=== PATIENT | male | born 1965 | race Caucasian/White ===

== ENCOUNTER 2017-05-22 14:21 | Emergency (ER) | payer MEDICAID ==
[2017-05-22] MEDS ORDERED: Sodium Chloride 0.9% 1000 ML 1,000 ML IV STA (14:36)
[2017-05-22] MEDS ORDERED: BACIGUENT PACKET ONE (14:40)
--- NOTE | 2017-05-22 14:43 | ERPHSYRPT ---
- History of Present Illness Time Seen by Provider: 05/22/17 14:40 Source: patient, EMS Exam Limitations: other (mentally challenged) Physician History: fdc pt w/ fatigue and right foot wound for many days, no fever, hx mentally challenged, no emesis, ambulates w/ walker, no recent injury Allergies/Adverse Reactions: No Known Drug Allergies Allergy (Unverified 05/22/17 15:12) - Review of Systems Constitutional: No Fever Eyes: No Eye Redness Ears, Nose, & Throat: No Throat Pain Respiratory: No Symptoms Cardiac: No Symptoms Abdominal/Gastrointestinal: No Symptoms Musculoskeletal: No Back Pain, No Neck Pain Skin: Cellulitis Neurological: No Focal Weakness - Nursing Vital Signs Nursing Vital Signs: Initial Vital Signs Temperature 97.5 F 05/22/17 14:27 Pulse Rate 53 L 05/22/17 14:27 Respiratory Rate 16 05/22/17 14:27 Blood Pressure 109/65 05/22/17 14:27 O2 Sat by Pulse Oximetry 97 05/22/17 14:27 Pain Scale Pain Intensity 0 - Physical Exam General Appearance: no apparent distress Eye Exam: eyes nml inspection Ears, Nose, Throat Exam: moist mucous membranes Neck Exam: normal inspection Respiratory Exam: normal breath sounds Cardiovascular Exam: regular rate/rhythm Gastrointestinal/Abdomen Exam: soft, No tenderness Extremity Exam: other (dorsal ulcer 2cm of the right foot w/ edema of the leg, sen and pulses intact, rom limited) Skin Exam: warm - Course Nursing assessment & vital signs reviewed: Yes - Radiology Exams Foot X-ray Interpretation: Interpreted by me, Other (right foot no osteo or fx seen) - Radiology Ultrasound Exam Venous Lower Extremity Ultrasound: discussed w/radiologist, Other (no dvt right lower extremity) Ordered Tests: Active Orders 24 hr Category Date Time Status IV Insertion STAT Care 05/22/17 14:36 Active FOOT (MINIMUM 3 VIEWS) Stat Exams 05/22/17 14:38 Taken VENOUS UNILAT/LIMITED EXTREMIT [US] Stat Exams 05/22/17 16:09 Taken BLOOD CULTURE Stat Lab 05/22/17 15:10 Received CBC W DIFF Stat Lab 05/22/17 14:50 Completed CMP Stat Lab 05/22/17 14:50 Completed Lactic Acid Stat Lab 05/22/17 15:08 Completed Medication Summary Generic Name Dose Route Start Last Admin Trade Name Freq PRN Reason Stop Dose Admin Cefazolin Sodium/Dextrose 1 gm in 50 mls @ 100 mls/hr 05/22/17 18:28 Kefzol 1 Gm/50 Ml Premix IV 05/22/17 18:57 STAT STA Discontinued Medications Generic Name Dose Route Start Last Admin Trade Name Freq PRN Reason Stop Dose Admin Bacitracin Confirm 05/22/17 14:40 Baciguent Packet Administered 05/22/17 14:41 Dose 1 gm .ROUTE .STK-MED ONE Sodium Chloride 1,000 mls @ 999 mls/hr 05/22/17 14:36 05/22/17 15:11 Sodium Chloride 0.9% 1000 Ml IV 05/22/17 15:36 999 mls/hr .Q1H1M STA Administration Sodium Chloride Confirm 05/22/17 15:04 Sodium Chloride 0.9% 1000 Ml Administered 05/22/17 15:05 Dose 1,000 mls @ ud .ROUTE .[facility]MED [facility] Lab/Rad Data: Laboratory Result Diagrams 05/22/17 14:50 05/22/17 14:50 Laboratory Results 05/22/17 05/22/17 05/22/17 Range/Units 15:10 15:08 14:50 WBC (4.0-10.5) K/mm3 RBC (4.1-5.6) M/mm3 Hgb (12.5-18.0) gm/dl Hct (42-50) % MCV (78-100) fl MCH (26-32) pg MCHC (32-36) g/dl RDW (11.5-14.0) % Plt Count (150-450) K/mm3 MPV (6-9.5) fl Gran % (36.0-66.0) % Lymphocytes % (24.0-44.0) % Monocytes % (0.0-12.0) % Eosinophils % (0.00-5.0) % Basophils % (0.0-0.4) % Basophils # (0-0.4) Sodium 145 (136-145) mEq/L Potassium 4.2 (3.5-5.1) mEq/L Chloride 110 H (98-107) mEq/L Carbon Dioxide 31.1 (21-32) mEq/L Anion Gap 8.3 (5-15) MEQ/L BUN 24 H (9-20) mg/dL Creatinine 1.20 (0.55-1.30) mg/dl Estimated GFR > 60 ML/MIN Glucose 90 (70-110) MG/DL Lactic Acid 0.9 (0.4-2.0) Calcium 9.1 (8.5-10.1) mg/dL Total Bilirubin 0.50 (0.2-1.0) mg/dL AST 56 H (15-37) U/L ALT 57 (12-78) U/L Alkaline Phosphatase 78 (46-116) U/L Serum Total Protein 8.9 H (6.4-8.2) gm/dL Albumin 3.2 L (3.4-5.0) g/dL Influenza Type A Ag NEGATIVE (NEGATIVE) Influenza Type B Ag NEGATIVE (NEGATIVE) RSV (PCR) NEGATIVE (Negative) 05/22/17 Range/Units 14:50 WBC 8.2 (4.0-10.5) K/mm3 RBC 4.52 (4.1-5.6) M/mm3 Hgb 14.3 (12.5-18.0) gm/dl Hct 45.2 (42-50) % MCV 100.0 (78-100) fl MCH 31.6 (26-32) pg MCHC 31.6 L (32-36) g/dl RDW 16.5 H (11.5-14.0) % Plt Count 266 (150-450) K/mm3 MPV 11.7 H (6-9.5) fl Gran % 37.5 (36.0-66.0) % Lymphocytes % 41.7 (24.0-44.0) % Monocytes % 13.7 H (0.0-12.0) % Eosinophils % 6.7 H (0.00-5.0) % Basophils % 0.4 (0.0-0.4) % Basophils # 0.03 (0-0.4) Sodium (136-145) mEq/L Potassium (3.5-5.1) mEq/L Chloride (98-107) mEq/L Carbon Dioxide (21-32) mEq/L Anion Gap (5-15) MEQ/L BUN (9-20) mg/dL Creatinine (0.55-1.30) mg/dl Estimated GFR ML/MIN Glucose (70-110) MG/DL Lactic Acid (0.4-2.0) Calcium (8.5-10.1) mg/dL Total Bilirubin (0.2-1.0) mg/dL AST (15-37) U/L ALT (12-78) U/L Alkaline Phosphatase (46-116) U/L Serum Total Protein (6.4-8.2) gm/dL Albumin (3.4-5.0) g/dL Influenza Type A Ag (NEGATIVE) Influenza Type B Ag (NEGATIVE) RSV (PCR) (Negative) - Progress Progress: unchanged Discussed with : Other Will see patient in: office Counseled pt/family regarding: lab results, diagnosis, need for follow-up, rad results - Departure Time of Disposition: 18:31 Departure Disposition: Home Clinical Impression: Cellulitis Qualifiers: Site of cellulitis: extremity Site of cellulitis of extremity: lower extremity Laterality: right Qualified Code(s): L03.115 - Cellulitis of right lower limb Condition: Stable Critical Care Time: No Referrals: HENRRY LOUIE [Primary Care Provider] - Additional Instructions: see your doctor, return if worse, keflex, continue present medical regimen
[2017-05-22] MEDS ORDERED: Sodium Chloride 0.9% 1000 ML 1,000 ML ONE (15:04)
[2017-05-22 15:24] LABS: BASOPHIL % 0.4 % (0.0-0.4); Basophil (Absolute #) 0.03 (0-0.4); Eosinophil % 6.7 % (0.00-5.0); Eosinophil (Absolute #) 0.55 (0-0.5); Granulocyte Absolute (ANC) 3.08 (1.4-6.9); Granulocytes % 37.5 % (36.0-66.0); Hematocrit 45.2 % (42-50); Hemoglobin 14.3 gm/dl (12.5-18.0); Lymphocyte (Absolute #) 3.42 (1.0-4.6); Lymphocytes % 41.7 % (24.0-44.0); Mean Corpuscular Hemoglobin 31.6 pg (26-32); Mean Corpuscular Hgb Concent. 31.6 g/dl (32-36); Mean Platelet Volume 11.7 fl (6-9.5); Monocyte (Absolute #) 1.12 (0.0-1.3); Monocytes % 13.7 % (0.0-12.0); Platelet Count 266 K/mm3 (150-450); Red Blood Count 4.52 M/mm3 (4.1-5.6); Red Cell Distribution Width 16.5 % (11.5-14.0); White Blood Count 8.2 K/mm3 (4.0-10.5)
[2017-05-22 15:37] LABS: ALBUMIN 3.2 g/dL (3.4-5.0); ALKALINE PHOSPHATASE 78 U/L (46-116); ANION GAP 8.3 MEQ/L (5-15); BLOOD UREA NITROGEN 24 mg/dL (9-20); CHLORIDE 110 mEq/L (98-107); Calcium 9.1 mg/dL (8.5-10.1); Carbon Dioxide 31.1 mEq/L (21-32); EST GLOMERULAR FILTRATION RATE > 60 ML/MIN; Glucose 90 MG/DL (70-110); Potassium 4.2 mEq/L (3.5-5.1); SGOT/AST 56 U/L (15-37); SGPT/ALT 57 U/L (12-78); SODIUM 145 mEq/L (136-145); Total Protein 8.9 gm/dL (6.4-8.2)
[2017-05-22 16:19] LABS: INFLUENZA A NEGATIVE (NEGATIVE); INFLUENZA B NEGATIVE (NEGATIVE); RESPIRATORY SYNCTIAL VIRUS NEGATIVE (Negative)
[2017-05-22] MEDS ORDERED: KEFZOL 1 GM/50 ML PREMIX** 1 GM/50 ML IVPB IV STA (18:28)
[2017-05-22] MEDS ORDERED: KEFZOL 1 GM/50 ML PREMIX** 1 GM/50 ML IVPB IV ONE (18:32)
[2017-05-22 19:18] VITALS: BP 115/67; PULSE 58; O2SAT 97
--- NOTE | 2017-05-22 21:10 | XRAY ---
Indication: Osteomyelitis. Erythema. No known injury. 2-dimensional sonogram and color Doppler imaging of the major venous vessels of the right leg was performed. Comparison: None No thrombus seen in the examined deep venous vessels of the right leg including greater saphenous vein. Veins demonstrate normal compressibility. Venous waveforms are normal with and without augmentation. Incidental prominent lymph nodes in the groin region, largest 2.7 x 5.0 cm. Impression: Right leg negative for DVT. Right inguinal enlarged lymph nodes. Comment: Preliminary report was given.
--- NOTE | 2017-05-22 21:10 | XRAY ---
Indication: Osteomyelitis. Erythema. No known injury. 3 views of the right foot demonstrates mild diffuse soft tissue swelling, osteopenia, and small heel spurs. No other bony, articular, or soft tissue abnormalities. MRI may yield further information if there remains further clinical concern for osteomyelitis.
[2017-05-23] MEDS ORDERED: BACIGUENT PACKET TP ONE (07:35)
== END 2017-05-22 19:34 | disposition home or self-care (01) ==
LOC: ED 14:21
DX: L03.115 Cellulitis of right lower limb (principal)
CPT/HCPCS: 36000; 36415; 73630; 80053; 83605; 85025; 87040; 87631; 93971; 96360; 96365; 99284; J0690; A9270-GY

== ENCOUNTER 2017-10-14 18:40 | Emergency (ER) | payer MEDICAID ==
[2017-10-14] MEDS ORDERED: Sodium Chloride 0.9% 1000 ML 1,000 ML IV SCH (19:15)
--- NOTE | 2017-10-14 19:18 | ERPHSYRPT ---
- History of Present Illness Time Seen by Provider: 10/14/17 19:06 Source: patient, other (care worker) Exam Limitations: other (patient with history of TBI) Patient Subjective Stated Complaint: caregiver states patient has been unsteady today and had periods of disorientation. had also c/o dizziness earlier today. Triage Nursing Assessment: to room per ems cot. skin w/d, color normal, resp easy. patient has no c/o at this time. eubanks without difficulty. resides at a senior living after having a TBI. Physician History: 52-year-old white male with history of traumatic brain injury, high blood pressure, movement disorder, cellulitis, edema Brought by caregiver with complaints that patient seems to be unsteady today seems to be disoriented times not using his walker as well as usual. No focal deficits. Patient's caregiver state patient gets this sometimes with urinary tract infections. Past medical history includes traumatic brain injury, lower extremity cellulitis which is chronic and under care, dementia, high blood pressure, mood disorder, cellulitis, edema, GERD, hypothyroidism Timing/Duration: today Severity: moderate Associated Symptoms: other (seems to be shaky today), No nausea, No vomiting, No abdominal pain, No shortness of breath, No heartburn, No diaphoresis, No cough, No chest pain, No fever, No headaches, No loss of appetite, No malaise, No rash, No syncope, No seizure, No weakness Allergies/Adverse Reactions: No Known Drug Allergies Allergy (Verified 10/14/17 19:08) Hx Tetanus, Diphtheria Vaccination/Date Given: No Hx Influenza Vaccination/Date Given: Yes Hx Pneumococcal Vaccination/Date Given: No - Review of Systems Constitutional: Weakness, No Fever, No Chills Eyes: No Symptoms Ears, Nose, & Throat: No Symptoms Respiratory: No Cough, No Dyspnea Cardiac: No Chest Pain, No Edema, No Syncope Abdominal/Gastrointestinal: No Abdominal Pain, No Nausea, No Vomiting, No Diarrhea Genitourinary Symptoms: No Dysuria Musculoskeletal: No Back Pain, No Neck Pain Skin: No Rash Neurological: Other ( appears to be unsteady as compared to usual seems to be shaky) Psychological: No Symptoms Endocrine: No Symptoms All Other Systems: Reviewed and Negative - Past Medical History Pertinent Past Medical History: Yes Cardiac History: Hypertension Endocrine Medical History: Hypothyroidism GI Medical History: GERD Psycho-Social History: Depression, Other Other Medical History: TBI from [facility] - Past Surgical History Past Surgical History: Yes (unknown/no history on transfer) Other Surgical History: caregiver states she doesn't know what surgeries he's had. - Social History Smoking Status: Never smoker Exposure to second hand smoke: No Drug Use: none Patient Lives Alone: No - Nursing Vital Signs Nursing Vital Signs: Initial Vital Signs Temperature 97.8 F 10/14/17 18:48 Pulse Rate 62 10/14/17 18:48 Respiratory Rate 18 10/14/17 18:48 Blood Pressure 105/55 10/14/17 18:48 O2 Sat by Pulse Oximetry 99 10/14/17 18:48 Pain Scale Pain Intensity 0 - Physical Exam General Appearance: no apparent distress, other (well-developed white male alert answers questions well) Eye Exam: PERRL/EOMI, eyes nml inspection Ears, Nose, Throat Exam: normal ENT inspection, TMs normal, pharynx normal, moist mucous membranes Neck Exam: normal inspection, non-tender, supple, full range of motion Respiratory Exam: normal breath sounds, lungs clear, No respiratory distress Cardiovascular Exam: regular rate/rhythm, normal heart sounds, normal peripheral pulses Gastrointestinal/Abdomen Exam: soft, normal bowel sounds, No tenderness, No distention, No mass, No guarding, No rebound Back Exam: normal inspection, normal range of motion, No CVA tenderness, No vertebral tenderness Extremity Exam: other (bilateral lower extremitiy edema dressing is placed lower extremities) Neurologic Exam: alert, criminalist II-XII nml as tested, No oriented x 3 (oriented to person and place) Skin Exam: other (chronic erythema lower extremities area is not hot) SpO2 Interpretation: normal (99%) SpO2: 99 Oxygen Delivery: Room Air - Course Nursing assessment & vital signs reviewed: Yes EKG Interpreted by Me: RATE (53 bpm), Sinus Efren, NORMAL AXIS, Other (EKG: Sinus bradycardia, 53 beats per minute, normal axis, no acute ST or T wave changes) - CT Exams Head CT Interpretation: Discussed w/radiologist (head CT: No comparisons. No acute intracranial findings. Prominent lateral and third ventricles. Rule out noncommunicating hydrocephalus.) Ordered Tests: Active Orders 24 hr Category Date Time Status EKG-ER Only STAT Care 10/14/17 19:09 Active IV Insertion STAT Care 10/14/17 19:09 Active CHEST 1 VIEW (PORTABLE) Stat Exams 10/14/17 19:10 Taken HEAD WITHOUT CONTRAST [CT] Stat Exams 10/14/17 20:10 Taken AMYLASE Stat Lab 10/14/17 19:27 Completed CBC W DIFF Stat Lab 10/14/17 19:27 Completed CMP Stat Lab 10/14/17 19:27 Completed LIPASE Stat Lab 10/14/17 19:27 Completed UA W/RFX UR CULTURE Stat Lab 10/14/17 19:10 Uncollected Medication Summary Generic Name Dose Route Start Last Admin Trade Name Freq PRN Reason Stop Dose Admin Sodium Chloride 1,000 mls @ 100 mls/hr 10/14/17 19:15 10/14/17 19:28 Sodium Chloride 0.9% 1000 Ml IV 11/13/17 19:14 100 mls/hr .Q10H RIMMA Administration Lab/Rad Data: Laboratory Result Diagrams 10/14/17 19:27 10/14/17 19:27 Laboratory Results 10/14/17 10/14/17 Range/Units 19:27 19:27 WBC 8.8 (4.0-10.5) K/mm3 RBC 4.42 (4.1-5.6) M/mm3 Hgb 14.7 (12.5-18.0) gm/dl Hct 43.7 (42-50) % MCV 98.9 (78-100) fl MCH 33.3 H (26-32) pg MCHC 33.6 (32-36) g/dl RDW 15.5 H (11.5-14.0) % Plt Count 253 (150-450) K/mm3 MPV 12.7 H (6-9.5) fl Gran % 46.3 (36.0-66.0) % Eos # (Auto) 0.48 (0-0.5) Absolute Lymphs (auto) 2.85 (1.0-4.6) Absolute Monos (auto) 1.36 H (0.0-1.3) Lymphocytes % 32.4 (24.0-44.0) % Monocytes % 15.5 H (0.0-12.0) % Eosinophils % 5.5 H (0.00-5.0) % Basophils % 0.3 (0.0-0.4) % Absolute Granulocytes 4.07 (1.4-6.9) Basophils # 0.03 (0-0.4) Sodium 145 (137-145) mmol/L Potassium 4.8 (3.5-5.1) mmol/L Chloride 107 (98-107) mmol/L Carbon Dioxide 29 (22-30) mmol/L Anion Gap 13.9 (5-15) MEQ/L BUN 21 H (9-20) mg/dL Creatinine 0.90 (0.66-1.25) mg/dL Estimated GFR > 60.0 ML/MIN Glucose 87 (74-106) mg/dL Calcium 9.4 (8.4-10.2) mg/dL Total Bilirubin 0.80 (0.2-1.3) mg/dL AST 52 (17-59) U/L ALT 44 (0-50) U/L Alkaline Phosphatase 70 (38-126) U/L Serum Total Protein 8.5 H (6.3-8.2) g/dL Albumin 4.0 (3.5-5.0) g/dL Amylase 88 (30-110) U/L Lipase 189 (23-300) U/L - Progress Progress: improved Progress Note: 10/14/17 20:11 52-year-old white male with history of traumatic brain injury dementia, high blood pressure patient apparently noted earlier today to have trouble walking couldn't remember what a pepsi was, No real focal deficits are noted, patient with chronic traumatic brain injury. Patient currently is alert oriented person and place. I've discussed the patient with the staff member who states she knows him quite well. She feels that at this point in time he is acting his normal self however earlier she said he was having a hard time with his balance. Will go ahead and obtain CT head patient does have a dressed wound on his lower extremities which are being treated by wound care center no signs of erythema. Labs are pending. Patient does not appear to be in acute distress at this time has range of motion to all extremities cranial nerves II through XII are intact patient is laughing and joking 10/14/17 22:33 Patient's CBC and chemistry essentially normal. Nurse attempted catheterization patient would not let him do this and would not provide a urine. Patient's head CT was read as no comparison. No acute intracranial findings, prominent lateral and third ventricle. Rule out noncommunicating hydrocephalus. I contacted Dr. Burnette who is listed on the computer as the patient's physician to discuss the patient however he stated he was not the patient's physician. Patient's records are checked from [facility] care they list Dr. Mcginnis as the patient' s physician I discussed the case with who is on-call for Dr. Mcginnis and discussed the patient's findings and CT results. It is felt that the patient at this time is in no acute distress This felt that CT head findings are most likely chronic. Will attempt to have the patient obtain a urine at rest care. Will have patient's caregiver contact Dr. Mcginnis's office in the morning to arrange follow-up appointment. - Departure Time of Disposition: 22:36 Departure Disposition: Home Clinical Impression: Gait disturbance, transient mental status change, Abnormal head CT, History of traumatic brain injury Condition: Fair Critical Care Time: No Referrals: HENRRY LOUIE [NON-STAFF PHY W/O PRIVILEGES] - Additional Instructions: return home. Continue current medications and treatment. Follow-up with Dr. Mcginnis (call in the morning to arrange followup) Return for acute distress or for severe symptoms.
[2017-10-14] MEDS ORDERED: Sodium Chloride 0.9% 1000 ML 1,000 ML ONE (19:26)
[2017-10-14 19:42] LABS: BASOPHIL % 0.3 % (0.0-0.4); Basophil (Absolute #) 0.03 (0-0.4); Eosinophil % 5.5 % (0.00-5.0); Eosinophil (Absolute #) 0.48 (0-0.5); Granulocyte Absolute (ANC) 4.07 (1.4-6.9); Granulocytes % 46.3 % (36.0-66.0); Hematocrit 43.7 % (42-50); Hemoglobin 14.7 gm/dl (12.5-18.0); Lymphocyte (Absolute #) 2.85 (1.0-4.6); Lymphocytes % 32.4 % (24.0-44.0); Mean Cell Volume 98.9 fl (78-100); Mean Corpuscular Hemoglobin 33.3 pg (26-32); Mean Corpuscular Hgb Concent. 33.6 g/dl (32-36); Mean Platelet Volume 12.7 fl (6-9.5); Monocyte (Absolute #) 1.36 (0.0-1.3); Monocytes % 15.5 % (0.0-12.0); Platelet Count 253 K/mm3 (150-450); Red Blood Count 4.42 M/mm3 (4.1-5.6); Red Cell Distribution Width 15.5 % (11.5-14.0); White Blood Count 8.8 K/mm3 (4.0-10.5)
[2017-10-14 21:17] LABS: ALKALINE PHOSPHATASE 70 U/L (38-126); AMYLASE 88 U/L (30-110); ANION GAP 13.9 MEQ/L (5-15); BLOOD UREA NITROGEN 21 mg/dL (9-20); CHLORIDE 107 mmol/L (98-107); Calcium 9.4 mg/dL (8.4-10.2); Carbon Dioxide 29 mmol/L (22-30); Glucose 87 mg/dL (74-106); LIPASE 189 U/L (23-300); Potassium 4.8 mmol/L (3.5-5.1); SGOT/AST 52 U/L (17-59); SGPT/ALT 44 U/L (0-50); SODIUM 145 mmol/L (137-145); Total Protein 8.5 g/dL (6.3-8.2)
[2017-10-14 23:06] VITALS: BP 112/78; PULSE 58; O2SAT 97
--- NOTE | 2017-10-15 08:39 | XRAY ---
Indication: Altered mental status. Multiple contiguous axial images obtained through the head without contrast. Comparison: None Age-appropriate global atrophy and mild periventricular degenerative micro-ischemia bilaterally. Both lateral and third ventricles are prominent with the fourth ventricle more normal in size concerning for noncommunicating hydrocephalus. No acute intracranial hemorrhage, abnormal extra-axial fluid collection, or mass effect. Bony calvarium intact. Visualized paranasal sinuses and mastoid air cells are clear. Impression: 1. Prominent lateral and third ventricles. Rule out noncommunicating hydrocephalus. Comparison studies would be of benefit if performed elsewhere. 2. Atrophy and degenerative micro-ischemia within normal limits. CT DI 70.00
--- NOTE | 2017-10-15 08:41 | XRAY ---
Indication: Weakness. Comparison: None Portable chest demonstrates left hemidiaphragm elevation with adjacent infiltrate/atelectasis. A few scattered tiny calcified granulomas. Remaining heart and right lung unremarkable. Bony thorax demonstrates mild degenerative changes and old left rib fractures fixated with wires. Impression: Left hemidiaphragm elevation with adjacent infiltrate/atelectasis. Correlate clinically.
== END 2017-10-14 23:05 | disposition home or self-care (01) ==
LOC: ED 18:40
DX: R26.9 Unspecified abnormalities of gait and mobility (principal); R41.82 Altered mental status, unspecified; R93.0 Abnormal findings on diagnostic imaging of skull and head, not elsewhere classified; Z87.820 Personal history of traumatic brain injury
CPT/HCPCS: 36000; 36415; 70450; 71045; 80053; 82150; 83690; 85025; 93005; 96360; 96361; 99284

== ENCOUNTER 2017-11-11 08:14 | Emergency (ER) | payer MEDICAID ==
[2017-11-11 08:35] VITALS: BP 100/56; PULSE 65; O2SAT 97
--- NOTE | 2017-11-11 08:54 | ERPHSYRPT ---
- History of Present Illness Time Seen by Provider: 11/11/17 08:49 Source: patient, other (staff care worker) Exam Limitations: no limitations Patient Subjective Stated Complaint: pt here for bleeding to left foot after coming out of shower today, pt is from [facility] and staff is unsure what happened to foot, Triage Nursing Assessment: pt alert , resp easy , skin w/d/p,pt has scabbed over area to outer aspect of left foot on top of small vein Physician History: patient with a scab on left lower extremity. Apparently patient picked on scab and it began to bleed. note taker states there was increased amount of bleeding that was not able to stop. Patient is a resident of a local prison. By the time patient arrived to ED bleeding was controlled Occurred: just prior to arrival Quality: intermittent Severity of Pain-Max: none Severity of Pain-Current: none Lower Extremities Pain: ankle: left Modifying Factors: Improves With: immobilization (improves), movement (worsens) Associated Symptoms: none Allergies/Adverse Reactions: No Known Drug Allergies Allergy (Verified 10/14/17 19:08) Hx Tetanus, Diphtheria Vaccination/Date Given: No Hx Influenza Vaccination/Date Given: (unsure) Hx Pneumococcal Vaccination/Date Given: (unsure) - Review of Systems Constitutional: No Fever, No Chills Eyes: No Symptoms Ears, Nose, & Throat: No Symptoms Respiratory: No Symptoms, No Cough, No Dyspnea Cardiac: No Symptoms, No Chest Pain, No Edema, No Syncope Abdominal/Gastrointestinal: No Symptoms, No Abdominal Pain, No Nausea, No Vomiting, No Diarrhea Genitourinary Symptoms: No Symptoms, No Dysuria Musculoskeletal: No Symptoms, No Back Pain, No Neck Pain Skin: Other (bleeding from varicose vein), No Rash Neurological: No Symptoms, No Dizziness, No Focal Weakness, No Sensory Changes Psychological: No Symptoms Endocrine: No Symptoms Hematologic/Lymphatic: No Symptoms Immunological/Allergic: No Symptoms All Other Systems: Reviewed and Negative - Past Medical History Pertinent Past Medical History: Yes Cardiac History: Hypertension Endocrine Medical History: Hypothyroidism GI Medical History: GERD Psycho-Social History: Depression, Other Other Medical History: [facility] from [facility] - Past Surgical History Past Surgical History: Yes (unknown/no history on transfer) Other Surgical History: caregiver states she doesn't know what surgeries he's had. - Social History Smoking Status: Never smoker Exposure to second hand smoke: No Drug Use: none Patient Lives Alone: No - Nursing Vital Signs Nursing Vital Signs: Initial Vital Signs Temperature 97.9 F 11/11/17 08:27 Pulse Rate 65 11/11/17 08:27 Respiratory Rate 16 11/11/17 08:27 Blood Pressure 100/56 11/11/17 08:27 O2 Sat by Pulse Oximetry 97 11/11/17 08:27 Pain Scale Pain Intensity 0 - Physical Exam General Appearance: alert Eyes, Ears, Nose, Throat Exam: moist mucous membranes Neck Exam: normal inspection, non-tender, supple Cardiovascular/Respiratory Exam: chest non-tender, normal breath sounds, regular rate/rhythm, no respiratory distress Gastrointestinal/Abdominal Exam: non-tender, guarding Back Exam: normal inspection, No vertebral tenderness Legs Exam: bilateral leg: non-tender, normal range of motion, no evidence of injury Ankle Exam: bilateral ankle: non-tender, normal range of motion, no evidence of injury DTR - Lower Extremities Exam: ankle (R): 2+, ankle (L): 2+ Neuro/Tendon Exam: normal sensation, normal motor functions Mental Status Exam: alert, oriented x 3, cooperative Skin Exam: normal color, warm, dry, other (there is a small scab on left lower leg above ankle. No bleeding is noted at this time) SpO2: 97 Oxygen Delivery: Room Air - Course Nursing assessment & vital signs reviewed: Yes - Progress Progress: improved Progress Note: 11/11/17 08:55 we will put Surgicel on wound, along with compression dressing. Counseled pt/family regarding: diagnosis - Departure Time of Disposition: 08:57 Departure Disposition: Home Clinical Impression: Bleeding from wound Condition: Stable Critical Care Time: No Referrals: JANICE FLORES [Primary Care Provider] - Instructions: Wound Care (DC) Additional Instructions: keep leg elevated in decrease weight bearing for next 1-2 days. Put pressure dressing on wound to stop bleeding. Return for worse bleeding, redness, swelling or any problems
== END 2017-11-11 09:21 | disposition home or self-care (01) ==
LOC: ED 08:14
DX: S91.302A Unspecified open wound, left foot, initial encounter (principal)
CPT/HCPCS: 99283

== ENCOUNTER 2018-01-06 17:08 | Emergency (ER) | payer MEDICAID ==
--- NOTE | 2018-01-06 17:16 | ERPHSYRPT ---
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 no vomiting and no aspiration. pt has no complaints. by law, pts living in a fpc setting with this issue need to be evaluated. caregiver has not seen any issues since it occurred ie. no cough no shortness and no cp. Timing/Duration: today, hour(s) (2 to 3 hours ago) Cough Quality/Degree: no cough Possible Cause: no prior episodes Modifying Factors: Improves With: nothing Associated Symptoms: denies symptoms International travel in last 2 weeks: Yes Allergies/Adverse Reactions: No Known Drug Allergies Allergy (Verified 10/14/17 19:08) Home Medications: Fluoxetine HCl 10 mg [Prozac 10 mg] 10 mg PO DAILY 01/06/18 [History] Levothyroxine Sodium 100 mg PO DAILY 01/06/18 [History] Topiramate 50 mg PO DAILY 01/06/18 [History] Hx Tetanus, Diphtheria Vaccination/Date Given: No Hx Influenza Vaccination/Date Given: (unsure) Hx Pneumococcal Vaccination/Date Given: (unsure) - Review of Systems Constitutional: No Symptoms Eyes: No Symptoms Ears, Nose, & Throat: No Symptoms Respiratory: No Symptoms Cardiac: No Symptoms Abdominal/Gastrointestinal: No Symptoms Genitourinary Symptoms: No Symptoms Musculoskeletal: No Symptoms Skin: No Symptoms Neurological: No Symptoms Psychological: No Symptoms Endocrine: No Symptoms Hematologic/Lymphatic: No Symptoms Immunological/Allergic: No Symptoms All Other Systems: Reviewed and Negative - Past Medical History Pertinent Past Medical History: Yes Cardiac History: Hypertension Endocrine Medical History: Hypothyroidism GI Medical History: GERD Psycho-Social History: Depression, Other Other Medical History: TBI from [facility] - Past Surgical History Past Surgical History: Yes (unknown/no history on transfer) Other Surgical History: caregiver states she doesn't know what surgeries he's had. - Social History Smoking Status: Never smoker Exposure to second hand smoke: No Drug Use: none Patient Lives Alone: No - Nursing Vital Signs Nursing Vital Signs: Initial Vital Signs Temperature 97.9 F 01/06/18 17:15 Pulse Rate 72 01/06/18 17:15 Respiratory Rate 18 01/06/18 17:15 Blood Pressure 117/64 01/06/18 17:15 O2 Sat by Pulse Oximetry 95 01/06/18 17:15 Pain Scale Pain Intensity 0 - Physical Exam General Appearance: no apparent distress, alert Eye Exam: PERRL/EOMI, eyes nml inspection Ears, Nose, Throat Exam: normal ENT inspection Neck Exam: normal inspection, non-tender, supple, full range of motion Respiratory Exam: normal breath sounds, lungs clear, airway intact, No chest tenderness, No respiratory distress, No diminished breath sounds, No accessory muscle use, No rhonchi, No wheezing, No stridor Cardiovascular Exam: regular rate/rhythm, normal heart sounds, normal peripheral pulses Gastrointestinal/Abdomen Exam: soft, normal bowel sounds, No tenderness, No distention, No mass, No guarding, No rebound Rectal Exam: deferred Back Exam: normal inspection, normal range of motion, No CVA tenderness, No vertebral tenderness Extremity Exam: normal inspection, normal range of motion, pelvis stable Neurologic Exam: alert, oriented x 3, cooperative, chair caner II-XII nml as tested, normal mood/affect Skin Exam: normal color, warm, dry Lymphatic Exam: No adenopathy SpO2 Interpretation: normal Oxygen Delivery: Room Air - Course Nursing assessment & vital signs reviewed: Yes - Progress Progress: unchanged Air Movement: good Blood Culture(s) Obtained: No Antibiotics given: No Counseled pt/family regarding: diagnosis - Departure Time of Disposition: 17:51 Departure Disposition: Home Clinical Impression: Encounter for medical screening examination Condition: Good Critical Care Time: No Referrals: JANICE FLORES [Primary Care Provider] -
[2018-01-06 17:57] VITALS: BP 114/60; PULSE 70; O2SAT 95
== END 2018-01-06 18:01 | disposition home or self-care (01) ==
LOC: ED 17:08
DX: Z04.8 Encounter for examination and observation for other specified reasons (principal); Z87.820 Personal history of traumatic brain injury
CPT/HCPCS: 99283

== ENCOUNTER 2018-01-20 17:06 | Emergency (ER) | payer MEDICAID ==
[2018-01-20] MEDS ORDERED: Lactated Ringers 1,000 ML IV ONE ×2 (17:13→17:41)
--- NOTE | 2018-01-20 17:18 | ERPHSYRPT ---
- History of Present Illness Time Seen by Provider: 01/20/18 17:11 Source: patient, family, snf records, old records Exam Limitations: clinical condition (s/p old TBInjury) Physician History: family caregiver historian; came home and went to sleep- difficulty waking up ; low heart rate; large clear liquid diarrheal stool this afternoon; no pain; no travel- no fever; no exposures; no past hx of similar episodes Timing/Duration: today, hour(s) (2 ago), resolved prior to arrival, sudden Severity: severe Associated Symptoms: loss of appetite (recent), other (diarrhea x 1 clear watery ) Allergies/Adverse Reactions: No Known Drug Allergies Allergy (Verified 01/20/18 17:51) Home Medications: Fluoxetine HCl 10 mg [Prozac 10 mg] 10 mg PO DAILY 01/06/18 [History] Docusate Sodium 100 mg [Colace 100 MG] 100 mg PO BID 01/20/18 [History] Famotidine 20 mg [Pepcid 20 MG] 20 mg PO BID 01/20/18 [History] Hx Tetanus, Diphtheria Vaccination/Date Given: No Hx Influenza Vaccination/Date Given: (unsure) Hx Pneumococcal Vaccination/Date Given: (unsure) - Review of Systems Constitutional: Malaise Eyes: No Symptoms Ears, Nose, & Throat: No Symptoms Respiratory: No Cough, No Dyspnea, No Wheezing Cardiac: No Chest Pain, No Edema, No Palpitations, No Syncope Abdominal/Gastrointestinal: Diarrhea, No Abdominal Pain, No Nausea, No Vomiting , No Melena Genitourinary Symptoms: No Symptoms Musculoskeletal: No Symptoms Skin: No Symptoms Neurological: Other (sp old traumatic brain injury- no change) Psychological: No Symptoms Endocrine: No Symptoms Hematologic/Lymphatic: No Symptoms Immunological/Allergic: No Symptoms - Past Medical History Pertinent Past Medical History: Yes Cardiac History: Hypertension Endocrine Medical History: Hypothyroidism GI Medical History: GERD Psycho-Social History: Depression, Other Other Medical History: TBI from [facility] - Past Surgical History Past Surgical History: Yes (unknown/no history on transfer) Other Surgical History: caregiver states she doesn't know what surgeries he's had. - Social History Smoking Status: Never smoker How long have you smoked: years Exposure to second hand smoke: No Alcohol Use: None Drug Use: none Patient Lives Alone: No Significant Family History: no pertinent family hx - Female History Hx Now: No - Nursing Vital Signs Nursing Vital Signs: Initial Vital Signs Blood Pressure 107/63 01/20/18 17:09 Pain Scale Pain Intensity 0 - Physical Exam General Appearance: no apparent distress, alert, thin Eye Exam: PERRL/EOMI, eyes nml inspection Ears, Nose, Throat Exam: normal ENT inspection, TMs normal, pharynx normal, moist mucous membranes Neck Exam: normal inspection, non-tender, supple, full range of motion, No meningismus, No JVD Respiratory Exam: normal breath sounds, lungs clear, airway intact, No chest tenderness, No respiratory distress Cardiovascular Exam: regular rate/rhythm, normal heart sounds, normal peripheral pulses, bradycardia (58), capillary refill 2-3 sec, No murmur Gastrointestinal/Abdomen Exam: soft, normal bowel sounds, No tenderness, No guarding, No pulsatile mass, No rebound, No organomegaly Rectal Exam: normal exam, normal rectal tone, other (clear watery stool), No hemorrhoids, No black stool, No blood Back Exam: normal inspection, normal range of motion, No CVA tenderness, No vertebral tenderness, No rash Extremity Exam: normal inspection, normal range of motion, pedal edema (chronic) , No kelton's sign Neurologic Exam: alert, cooperative, smoke tester II-XII nml as tested, normal mood/ affect Skin Exam: normal color, warm, dry, other (venous stasis cahnges and discoloration bialteral lower legs), No rash, No petechiae, No jaundice SpO2 Interpretation: normal SpO2: 98 Oxygen Delivery: Room Air - Course Nursing assessment & vital signs reviewed: Yes EKG Interpreted by Me: RATE (52), Sinus Efren (52), NORMAL AXIS, NORMAL INTERVALS, NORMAL QRS, NORMAL ST-T, Other (no change from old ekg done 10-14-17 sinus bradycardia at 53) Rhythm Strip: Rate (52), Sinus Bradycardia Ordered Tests: Active Orders 24 hr Category Date Time Status Accucheck STAT Care 01/20/18 17:12 Active IV Insertion STAT Care 01/20/18 17:11 Active Orthostatic Vital Signs STAT Care 01/20/18 17:12 Active Re-Check Vital Signs STAT Care 01/20/18 17:11 Active CBC W DIFF Stat Lab 01/20/18 16:50 Completed CMP Stat Lab 01/20/18 16:50 Completed Lactic Acid Stat Lab 01/20/18 17:25 Completed Occult Blood,Stool Other Stat Lab 01/20/18 17:30 Completed Medication Summary Discontinued Medications Generic Name Dose Route Start Last Admin Trade Name Ellis PRN Reason Stop Dose Admin Lactated Ringer's 1,000 mls @ 999 mls/hr 01/20/18 17:13 01/20/18 17:41 Lactated Ringers IV 01/20/18 18:13 999 mls/hr .Q1H1M ONE Administration Lactated Ringer's Confirm 01/20/18 17:41 Lactated Ringers Administered 01/20/18 17:42 Dose 1,000 mls @ ud IV .STK-MED ONE Lab/Rad Data: Laboratory Result Diagrams 01/20/18 16:50 01/20/18 16:50 Laboratory Results 01/20/18 01/20/18 01/20/18 Range/Units 17:30 17:25 16:50 WBC (4.0-10.5) K/mm3 RBC (4.1-5.6) M/mm3 Hgb (12.5-18.0) gm/dl Hct (42-50) % MCV (78-100) fl MCH (26-32) pg MCHC (32-36) g/dl RDW (11.5-14.0) % Plt Count (150-450) K/mm3 MPV (6-9.5) fl Gran % (36.0-66.0) % Eos # (Auto) (0-0.5) Absolute Lymphs (auto) (1.0-4.6) Absolute Monos (auto) (0.0-1.3) Lymphocytes % (24.0-44.0) % Monocytes % (0.0-12.0) % Eosinophils % (0.00-5.0) % Basophils % (0.0-0.4) % Absolute Granulocytes (1.4-6.9) Basophils # (0-0.4) Sodium 147 H (137-145) mmol/L Potassium 4.0 (3.5-5.1) mmol/L Chloride 108 H (98-107) mmol/L Carbon Dioxide 28 (22-30) mmol/L Anion Gap 15.1 H (5-15) MEQ/L BUN 25 H (9-20) mg/dL Creatinine 1.04 (0.66-1.25) mg/dL Estimated GFR > 60.0 ML/MIN Glucose 88 (74-106) mg/dL Lactic Acid 1.1 (0.4-2.0) Calcium 9.2 (8.4-10.2) mg/dL Total Bilirubin 0.60 (0.2-1.3) mg/dL AST 53 (17-59) U/L ALT 48 (0-50) U/L Alkaline Phosphatase 77 (38-126) U/L Serum Total Protein 8.5 H (6.3-8.2) g/dL Albumin 4.2 (3.5-5.0) g/dL Stool Occult Blood NEGATIVE (Negative) 01/20/18 Range/Units 16:50 WBC 8.7 (4.0-10.5) K/mm3 RBC 4.32 (4.1-5.6) M/mm3 Hgb 14.7 (12.5-18.0) gm/dl Hct 42.9 (42-50) % MCV 99.3 (78-100) fl MCH 34.0 H (26-32) pg MCHC 34.3 (32-36) g/dl RDW 15.1 H (11.5-14.0) % Plt Count 182 (150-450) K/mm3 MPV 11.8 H (6-9.5) fl Gran % 38.8 (36.0-66.0) % Eos # (Auto) 0.52 H (0-0.5) Absolute Lymphs (auto) 3.36 (1.0-4.6) Absolute Monos (auto) 1.41 H (0.0-1.3) Lymphocytes % 38.7 (24.0-44.0) % Monocytes % 16.2 H (0.0-12.0) % Eosinophils % 6.0 H (0.00-5.0) % Basophils % 0.3 (0.0-0.4) % Absolute Granulocytes 3.37 (1.4-6.9) Basophils # 0.03 (0-0.4) Sodium (137-145) mmol/L Potassium (3.5-5.1) mmol/L Chloride (98-107) mmol/L Carbon Dioxide (22-30) mmol/L Anion Gap (5-15) MEQ/L BUN (9-20) mg/dL Creatinine (0.66-1.25) mg/dL Estimated GFR ML/MIN Glucose (74-106) mg/dL Lactic Acid (0.4-2.0) Calcium (8.4-10.2) mg/dL Total Bilirubin (0.2-1.3) mg/dL AST (17-59) U/L ALT (0-50) U/L Alkaline Phosphatase (38-126) U/L Serum Total Protein (6.3-8.2) g/dL Albumin (3.5-5.0) g/dL Stool Occult Blood (Negative) reviewed - Progress Progress: improved, re-examined (after tests) Progress Note: 01/20/18 17:20 family caregiver at bedside; will give fluids check labs and recheck 01/20/18 17:39 stool neg for blood; lactic acid - 1.1; Accu check = 81; OSVS show slight drop in Pressure and increase in pulse- will bolus wiht IV fluid and recheck; other labs pending; EKG mild sinus bradycardia unchanged from previous 01/20/18 17:52 improving clinically iwth IV fluids; cbc ok 01/20/18 18:07 BS, REnal fx and lytes fair; K+ ok; Na++ hi 147, Cl hi 108; anion gap 15; will continue IV fluids and recehck 01/20/18 18:36 VS improved; no more diarrhea; feeling good; treatment plan and instructions given to senior care assistant Counseled pt/family regarding: lab results, diagnosis, need for follow-up - Departure Time of Disposition: 18:37 Departure Disposition: Home Clinical Impression: Diarrhea, Sinus bradycardia Condition: Stable Critical Care Time: No Referrals: JANICE FLORES [Primary Care Provider] - Additional Instructions: BRAT diet Follow-up with family doctor as directed. Call for appointment. Return if any problems. If you smoke please stop. Call or follow up with your family doctor for assistance if you need it to stop. Please wear your seatbelt when driving. Have a nice day. Thank you for allowing us to participate in your care today. :o) Dr Mohamud Harvey
[2018-01-20 17:37] LABS: BASOPHIL % 0.3 % (0.0-0.4); Basophil (Absolute #) 0.03 (0-0.4); Eosinophil (Absolute #) 0.52 (0-0.5); Granulocyte Absolute (ANC) 3.37 (1.4-6.9); Granulocytes % 38.8 % (36.0-66.0); Hematocrit 42.9 % (42-50); Hemoglobin 14.7 gm/dl (12.5-18.0); Lymphocyte (Absolute #) 3.36 (1.0-4.6); Lymphocytes % 38.7 % (24.0-44.0); Mean Cell Volume 99.3 fl (78-100); Mean Corpuscular Hgb Concent. 34.3 g/dl (32-36); Mean Platelet Volume 11.8 fl (6-9.5); Monocyte (Absolute #) 1.41 (0.0-1.3); Monocytes % 16.2 % (0.0-12.0); Platelet Count 182 K/mm3 (150-450); Red Blood Count 4.32 M/mm3 (4.1-5.6); Red Cell Distribution Width 15.1 % (11.5-14.0); White Blood Count 8.7 K/mm3 (4.0-10.5)
[2018-01-20 17:59] LABS: ALBUMIN 4.2 g/dL (3.5-5.0); ALKALINE PHOSPHATASE 77 U/L (38-126); ANION GAP 15.1 MEQ/L (5-15); BLOOD UREA NITROGEN 25 mg/dL (9-20); CHLORIDE 108 mmol/L (98-107); Calcium 9.2 mg/dL (8.4-10.2); Carbon Dioxide 28 mmol/L (22-30); Creatinine 1 1.04 mg/dL (0.66-1.25); Glucose 88 mg/dL (74-106); SGOT/AST 53 U/L (17-59); SGPT/ALT 48 U/L (0-50); SODIUM 147 mmol/L (137-145); Total Protein 8.5 g/dL (6.3-8.2)
[2018-01-20] MEDS ORDERED: Lomotil PO ONE (18:38)
[2018-01-20 18:40] VITALS: BP 113/68
[2018-01-20] MEDS ORDERED: Lomotil ONE (18:43)
[2018-01-20 19:45] VITALS: PULSE 55; O2SAT 96
== END 2018-01-20 19:20 | disposition home or self-care (01) ==
LOC: ED 17:06
DX: R19.7 Diarrhea, unspecified (principal); R00.1 Bradycardia, unspecified; Z79.899 Other long term (current) drug therapy
CPT/HCPCS: 36000; 36415; 80053; 82272; 82962; 83605; 85025; 93005; 96360; 99281; 99284; A9270-GY

== ENCOUNTER 2019-07-03 20:08 | Emergency (ER) | payer MEDICAID ==
[2019-07-03 21:20] LABS: Absolute Neutrophil Ct (ANC) 2.77 (1.4-6.9); BASOPHIL % 0.4 % (0.0-0.4); Basophil (Absolute #) 0.03 (0-0.4); Eosinophil % 5.6 % (0.00-5.0); Eosinophil (Absolute #) 0.46 (0-0.5); Hematocrit 41.3 % (42-50); Hemoglobin 13.8 gm/dl (12.5-18.0); Lymphocyte (Absolute #) 3.49 (1.0-4.6); Lymphocytes % 42.8 % (24.0-44.0); Mean Corpuscular Hemoglobin 33.7 pg (26-32); Mean Corpuscular Hgb Concent. 33.4 g/dl (32-36); Mean Platelet Volume 11.2 fl (7.5-11.0); Monocytes % 17.2 % (0.0-12.0); Platelet Count 230 K/mm3 (150-450); Red Blood Count 4.09 M/mm3 (4.1-5.6); Red Cell Distribution Width 15.9 % (11.5-14.0); White Blood Count 8.2 K/mm3 (4.0-10.5)
--- NOTE | 2019-07-03 21:26 | ERPHSYRPT ---
- History of Present Illness Time Seen by Provider: 07/03/19 20:25 Source: patient, other (health rn critical care) Patient Subjective Stated Complaint: PER [employer] C[employer] EMPLOYEE, PT HAS BEEN HAVING INCREASED EPISODES OF INCREASED CONFUSION AND POSSIBLE HALLUCINATIONS FOR LAST MONTH. STATES HE HAS HAD HIS TOPOMAX DECREASED RECENTLY AND CONCERNED THAT MAY BE CAUSING PROBLEM OR POSSIBLE UTI. Triage Nursing Assessment: PT ALERT, ANSWERS SOME QUESTIONS. PT BACK PER WHEELCHAIR, TRANSFERS TO STRETCHER WITH ASSIST OF 1 WITH LIMPING GAIT NOTED. PUPILS EQUAL AND REACTIVE. Timing/Duration: week(s) (4 to 6 ), worse (this afternoon), other Severity of Symptoms-Max: mild Severity of Symptoms-Current: mild Context related to: other (medication) Associated Symptoms: confused, other (memory changes) Previous symptoms: same symptoms as today Allergies/Adverse Reactions: No Known Drug Allergies Allergy (Verified 01/20/18 17:51) Home Medications: Fluoxetine HCl 10 mg [Prozac 10 mg] 10 mg PO DAILY 01/06/18 [History] Docusate Sodium 100 mg [Colace 100 MG] 100 mg PO BID 01/20/18 [History] Famotidine 20 mg [Pepcid 20 MG] 20 mg PO BID 01/20/18 [History] Hx Tetanus, Diphtheria Vaccination/Date Given: Yes Hx Influenza Vaccination/Date Given: (unsure) Hx Pneumococcal Vaccination/Date Given: (unsure) Immunizations Up to Date: Yes - Past Medical History Pertinent Past Medical History: Yes Neurological History: Dementia Cardiac History: Hypertension Endocrine Medical History: Hypothyroidism GI Medical History: GERD Psycho-Social History: Depression, Other Other Medical History: TBI from [facility] - Past Surgical History Past Surgical History: Yes (unknown/no history on transfer) Gastrointestinal: Appendectomy, Cholecystectomy, Hemorrhoidectomy Genitourinary: No Pertinent History Musculoskeletal: No Pertinent History Male Surgical History: No Pertinent History Other Surgical History: caregiver states she doesn't know what surgeries he's had. IN - HAD JOCELYNN, APPY, AND HEMORROIDECTOMY - Social History Smoking Status: Former smoker How long have you smoked: years Exposure to second hand smoke: No Alcohol Use: None Drug Use: none Patient Lives Alone: No (RESCARE) Significant Family History: no pertinent family hx - Review of Systems Constitutional: No Symptoms Eyes: No Symptoms Ears, Nose, & Throat: No Symptoms Respiratory: No Symptoms Cardiac: No Symptoms Abdominal/Gastrointestinal: No Symptoms Genitourinary Symptoms: No Symptoms Musculoskeletal: No Symptoms Skin: No Symptoms Neurological: Other (confusion) Psychological: No Symptoms Endocrine: No Symptoms Hematologic/Lymphatic: No Symptoms Immunological/Allergic: No Symptoms All Other Systems: Reviewed and Negative - Nursing Vital Signs Nursing Vital Signs: Initial Vital Signs Temperature 98.4 F 07/03/19 20:21 Pulse Rate 73 07/03/19 20:21 Respiratory Rate 16 07/03/19 20:21 Blood Pressure 114/59 07/03/19 20:21 O2 Sat by Pulse Oximetry 100 07/03/19 20:21 Pain Scale Pain Intensity 0 - Physical Exam General Appearance: no apparent distress, alert Eyes, Ears, Nose, Throat Exam: normal ENT inspection Neck Exam: normal inspection, non-tender, supple, full range of motion Respiratory Exam: normal breath sounds, lungs clear, airway intact, No chest tenderness, No respiratory distress Cardiovascular Exam: regular rate/rhythm, normal heart sounds, normal peripheral pulses Gastrointestinal/Abdominal Exam: soft, normal bowel sounds, No tenderness Extremities Exam: normal inspection, normal range of motion, No evidence of injury Current Suicidality: denies suicide plan Neurological Exam: alert, calm, retail sales lead II-XII nml as tested Appearance: appropriate appearance, appropriate insight Behavior/Eye Contact/Speech: alert & cooperative, cooperative, good eye contact Thoughts/Hallucinations: normal thought pattern, no apparent hallucination Skin Exam: normal color, warm, dry SpO2 Interpretation: normal SpO2: 100 O2 Delivery: Room Air - Course Nursing assessment & vital signs reviewed: Yes Ordered Tests: Active Orders 24 hr Category Date Time Status Clean Catch Urine Specimen STAT Care 07/03/19 20:46 Active IV Insertion STAT Care 07/03/19 20:44 Active NPO (ED) STAT Care 07/03/19 20:45 Active Pulse Oximetry (ED) STAT Care 07/03/19 20:44 Active HEAD WITHOUT CONTRAST [CT] Stat Exams 07/03/19 20:45 Taken CBC W DIFF Stat Lab 07/03/19 21:00 Completed CMP Stat Lab 07/03/19 21:00 Completed CULTURE,URINE Stat Lab 07/03/19 20:24 Received UA W/RFX UR CULTURE Stat Lab 07/03/19 20:24 Completed Urine Triage Profile Stat Lab 07/03/19 20:24 Received Lab/Rad Data: Laboratory Result Diagrams 07/03/19 21:00 07/03/19 21:00 Laboratory Results 07/03/19 07/03/19 07/03/19 Range/Units 21:00 21:00 20:24 WBC 8.2 (4.0-10.5) K/mm3 RBC 4.09 L (4.1-5.6) M/mm3 Hgb 13.8 (12.5-18.0) gm/dl Hct 41.3 L (42-50) % MCV 101.0 H (78-100) fl MCH 33.7 H (26-32) pg MCHC 33.4 (32-36) g/dl RDW 15.9 H (11.5-14.0) % Plt Count 230 (150-450) K/mm3 MPV 11.2 H (7.5-11.0) fl Gran % 34.0 L (36.0-66.0) % Eos # (Auto) 0.46 (0-0.5) Absolute Lymphs (auto) 3.49 (1.0-4.6) Absolute Monos (auto) 1.40 H (0.0-1.3) Lymphocytes % 42.8 (24.0-44.0) % Monocytes % 17.2 H (0.0-12.0) % Eosinophils % 5.6 H (0.00-5.0) % Basophils % 0.4 (0.0-0.4) % Absolute Granulocytes 2.77 (1.4-6.9) Basophils # 0.03 (0-0.4) Sodium 142 (137-145) mmol/L Potassium 4.6 (3.5-5.1) mmol/L Chloride 107 (98-107) mmol/L Carbon Dioxide 30 (22-30) mmol/L Anion Gap 10.3 (5-15) MEQ/L BUN 19 (9-20) mg/dL Creatinine 1.07 (0.66-1.25) mg/dL Estimated GFR > 60.0 ML/MIN Glucose 97 (74-106) mg/dL Calcium 9.1 (8.4-10.2) mg/dL Total Bilirubin 0.60 (0.2-1.3) mg/dL AST 48 (17-59) U/L ALT 48 (0-50) U/L Alkaline Phosphatase 70 (38-126) U/L Serum Total Protein 8.6 H (6.3-8.2) g/dL Albumin 4.0 (3.5-5.0) g/dL Urine Color YELLOW (YELLOW) Urine Appearance SLIGHTLY CLOUDY (CLEAR) Urine pH 6.0 (5-6) Ur Specific [place] 1.014 (1.005-1.025) Urine Protein NEGATIVE (Negative) Urine Ketones NEGATIVE (NEGATIVE) Urine Blood LARGE (0-5) Daniel/ul Urine Nitrite POSITIVE (NEGATIVE) Urine Bilirubin NEGATIVE (NEGATIVE) Urine Urobilinogen 4 (0-1) mg/dL Ur Leukocyte Esterase SMALL (NEGATIVE) Urine WBC (Auto) 26-50 (0-5) /HPF Urine RBC (Auto) 26-50 (0-2) /HPF U Epithel Cells (Auto) RARE (FEW) /HPF Urine Bacteria (Auto) MODERATE (NEGATIVE) /HPF Urine Culture Reflexed YES (NO) Urine Glucose NEGATIVE (NEGATIVE) mg/dL - Progress Progress: unchanged Progress Note: 07/03/19 23:20 CAT scan of the head reveals no acute intracranial process Counseled pt/family regarding: lab results, diagnosis, need for follow-up, rad results - Departure Departure Disposition: Home Clinical Impression: UTI (urinary tract infection) Condition: Stable Critical Care Time: No Referrals: RESCARE,RESCARE [Primary Care Provider] - Additional Instructions: Drink plenty of fluids. Up with your prescribing physician for further management. Take your antibiotics as prescribed Prescriptions: Cephalexin Mh 500 mg [Keflex 500 mg] 500 mg PO TID #21 capsule
[2019-07-03 21:31] LABS: ALKALINE PHOSPHATASE 70 U/L (38-126); ANION GAP 10.3 MEQ/L (5-15); BLOOD UREA NITROGEN 19 mg/dL (9-20); CHLORIDE 107 mmol/L (98-107); Calcium 9.1 mg/dL (8.4-10.2); Carbon Dioxide 30 mmol/L (22-30); Creatinine 1 1.07 mg/dL (0.66-1.25); Glucose 97 mg/dL (74-106); Potassium 4.6 mmol/L (3.5-5.1); SGOT/AST 48 U/L (17-59); SGPT/ALT 48 U/L (0-50); SODIUM 142 mmol/L (137-145); Total Protein 8.6 g/dL (6.3-8.2)
[2019-07-03 23:16] LABS: Appearance SLIGHTLY CLOUDY (CLEAR); Bacteria MODERATE /HPF (NEGATIVE); Bilirubin NEGATIVE (NEGATIVE); Blood LARGE Ery/ul (0-5); Epithelial Cells RARE /HPF (FEW); Glucose NEGATIVE (NEGATIVE); Ketones NEGATIVE (NEGATIVE); Leukocyte Esterase SMALL (NEGATIVE); Nitrite POSITIVE (NEGATIVE); Protein,Urine Dip NEGATIVE (Negative); RBC 26-50 /HPF (0-2); Specific Gravity 1.014 (1.005-1.025); Urobilinogen 4 mg/dL (0-1); WBC 26-50 /HPF (0-5)
[2019-07-03] MEDS ORDERED: ROCEPHIN 1 Gm-D5w 50 ml Bag** 1 G/50 ML IVPB IV STA (23:19)
[2019-07-03] MEDS ORDERED: ROCEPHIN 1 Gm-D5w 50 ml Bag** 1 G/50 ML IVPB IV ONE (23:26)
[2019-07-03 23:27] LABS: Amphetamine,Urine NEGATIVE (NEGATIVE); Barbiturate,Urine NEGATIVE (NEGATIVE); Benzodiazepine,Urine NEGATIVE (NEGATIVE); Cocaine,Urine NEGATIVE (NEGATIVE); Methadone,Urine NEGATIVE (NEGATIVE); Opiate,Urine NEGATIVE (NEGATIVE); PCP,Urine NEGATIVE (NEGATIVE); THC,Urine NEGATIVE (NEGATIVE)
[2019-07-04 02:03] VITALS: BP 111/70; PULSE 66; O2SAT 99
--- NOTE | 2019-07-04 08:34 | XRAY ---
Indication: Confusion. Memory loss. Multiple contiguous axial images obtained through the head without contrast. Comparison: October 14, 2016. Continued stable age-appropriate global atrophy, mild periventricular degenerative micro-ischemia bilaterally, and prominent third/lateral ventricles. No acute intracranial hemorrhage, abnormal extra-axial fluid collection, or mass effect. Fourth ventricle is midline. Bony calvarium intact. Visualized paranasal sinuses and mastoid air cells are clear. Impression: 1. Stable aging brain including atrophy and degenerative micro-ischemia. 2. Stable prominent third/lateral ventricles. Again rule out noncommunicating type hydrocephalus. 3. No new or acute intracranial abnormalities.
== END 2019-07-04 00:10 | disposition home or self-care (01) ==
LOC: ED 20:08
DX: N39.0 Urinary tract infection, site not specified (principal)
CPT/HCPCS: 36000; 36415; 70450; 80053; 80307; 81001; 85025; 87077; 87086; 87186; 94760; 96365; 99284; J0696

== ENCOUNTER 2019-12-14 07:39 | Emergency (ER) | payer MEDICAID ==
--- NOTE | 2019-12-14 08:12 | ERPHSYRPT ---
- History of Present Illness Time Seen by Provider: 12/14/19 07:40 Source: patient, other (last waxer from [facility]) Exam Limitations: other (Pt w TBI) Patient Subjective Stated Complaint: Fall Triage Nursing Assessment: Patient brought back to ED via w/c and transferred self to bed. Patient A+O X 3 with intermittent confusion due to TBI. Patient's res care staff states patient fell out of bed around 0600 and the nurse wanted him checked out. Patient has small raised around with abrasion noted to right upper forehead. Patient complains of BLE pain. Patient's caregiver states patient has hx of cellulitis and is concerned with his legs. BLE noted to be red and swollen. Patient complains of constant aching pain 5/10. Physician History: 54 yo wm w TBI from a [facility] w fall from bed at 5:30AM. Pt/caregiver deny LOC, but he has a mild JEAN BAPTISTE. He also states that he has mild lumbar pain. Pt denies C/T-spine pain/hip pain/UE-LE pain. Caregiver also wants legs examined for chronic venous stasis changes. Occurred: other (5:30AM) Reason for Fall: lost balance (Fell out of bed) Injuries/Pain Location: head Loss of Consciousness: no loss of consciousness Severity of Pain-Max: mild Severity of Pain-Current: mild Associated Symptoms (Fall): back pain Allergies/Adverse Reactions: No Known Drug Allergies Allergy (Unverified 12/14/19 07:48) Home Medications: Fluoxetine HCl 10 mg [Prozac 10 mg] 10 mg PO DAILY 01/06/18 [History] Docusate Sodium 100 mg [Colace 100 MG] 100 mg PO BID 01/20/18 [History] ARIPiprazole [Aripiprazole Odt] 1 tab PO DAILY 12/14/19 [History] Benztropine Mesylate 1 tab PO DAILY 12/14/19 [History] Levothyroxine Sodium 75 Mcg [Synthroid 75 Mcg] 1 tab PO DAILY 12/14/19 [History] Omeprazole 1 tab PO BID 12/14/19 [History] Potassium Chloride 1 tab PO DAILY 12/14/19 [History] Topiramate 1 tab PO BID 12/14/19 [History] Hx Tetanus, Diphtheria Vaccination/Date Given: Yes Hx Influenza Vaccination/Date Given: (unsure) Hx Pneumococcal Vaccination/Date Given: (unsure) Immunizations Up to Date: Yes Travel Risk - International Travel Have you traveled outside of the country in past 3 weeks: No - Coronavirus Screening Are you exhibiting any of the following symptoms?: No Close contact with a COVID-19 positive Pt in past 14-21 Days: No - Review of Systems Constitutional: No Fever, No Chills, No Fatigue, No Lethargy, No Malaise, No Night Sweats Ears, Nose, & Throat: No Symptoms Respiratory: No Symptoms Cardiac: No Symptoms Abdominal/Gastrointestinal: No Symptoms Genitourinary Symptoms: No Symptoms Musculoskeletal: Back Pain Skin: Other (BLE venous stasis changes) Neurological: No Symptoms Psychological: No Symptoms Endocrine: No Symptoms Hematologic/Lymphatic: No Symptoms Immunological/Allergic: No Symptoms - Past Medical History Pertinent Past Medical History: Yes Neurological History: Dementia Cardiac History: Hypertension Endocrine Medical History: Hypothyroidism GI Medical History: GERD Psycho-Social History: Depression, Other Other Medical History: TBI from [facility] - Past Surgical History Past Surgical History: Yes (unknown/no history on transfer) Gastrointestinal: Appendectomy, Cholecystectomy, Hemorrhoidectomy Genitourinary: No Pertinent History Musculoskeletal: No Pertinent History Male Surgical History: No Pertinent History Other Surgical History: caregiver states she doesn't know what surgeries he's had. [place] - HAD JOCELYNN, APPY, AND HEMORROIDECTOMY - Social History Smoking Status: Former smoker How long have you smoked: years Exposure to second hand smoke: No Alcohol Use: None Drug Use: none Patient Lives Alone: No ([facility]) Significant Family History: no pertinent family hx - Nursing Vital Signs Nursing Vital Signs: Initial Vital Signs Temperature 98.4 F 12/14/19 07:49 Pulse Rate 67 12/14/19 07:49 Respiratory Rate 18 12/14/19 07:49 Blood Pressure 101/65 12/14/19 07:49 O2 Sat by Pulse Oximetry 97 12/14/19 07:49 Pain Scale Pain Intensity 4 - [place] Coma Score Best Eye Response (Raimundo): (4) open spontaneously Best Verbal Response ([place]): (5) oriented (Disoriented to time which is most likely chronic) Best Motor Response (Raimundo): (6) obeys commands [place] Total: 15 - Physical Exam General Appearance: no apparent distress Head Injury: contusions (R superior glabella abrasion/edema) Eye Exam: PERRL/EOMI, eyes nml inspection ENT Exam: airway nml, nml ext.inspection (No otorrhea or rhinorrhea) Neck Exam: supple, other (C-spine nttp) Respiratory/Chest Exam: normal breath sounds, No respiratory distress Cardiovascular Exam: normal heart sounds, regular rate/rhythm, normal peripheral pulses, No murmur Gastrointestinal Exam: soft, normal bowel sounds, No tenderness Rectal Exam: deferred Back Exam: normal inspection, other (C/T/L-spine nttp) Extremity Exam: other (Mild pre-tibial edema/Chronic venous stasis changes B wo evidence of active cellulitis) Peripheral Pulses: carotid (R): 2+, carotid (L): 2+ Neurologic Exam: alert, cooperative, 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 nml as tested, normal mood/affect, nml cerebellar function, sensation nml, No motor deficits, No sensory deficit (Disoriented to time but pt at baseline) Skin Exam: other (Venous stasis changes BLE) SpO2 Interpretation: normal SpO2: 97 O2 Delivery: Room Air - Course Nursing assessment & vital signs reviewed: Yes - CT Exams Head CT Interpretation: Tele-radiologist Report (Nothing acute per report) Ordered Tests: Active Orders 24 hr Category Date Time Status HEAD WITHOUT CONTRAST [CT] Stat Exams 12/14/19 08:06 Completed - Progress Progress: improved Progress Note: 12/14/19 09:13 Pt refused pain meds during entire stay. Counselled caregiver about care for venous stasis dermatitis, including NIVIA hose/lotion/elevation of legs. Counseled pt/family regarding: need for follow-up, rad results - Departure Departure Disposition: Home Clinical Impression: Contusion of forehead, Venous stasis dermatitis of both lower extremities Condition: Stable Critical Care Time: No Referrals: [facility] [Primary Care Provider] - Instructions: Preventing Falls, Minor Head Injury (DC) Additional Instructions: Ice to forehead for 12-24 hours Motrin/tylenol for pain Return to ER for focal weakness/Worsening headache Follow up with family MD as needed Elevate legs NIVIA hose
--- NOTE | 2019-12-14 09:00 | XRAY ---
Exam: CT of the head without IV contrast from 12/14/2019. CTDI: 53.92 mGy Comparison: CT of the head without IV contrast from 07/03/2019. Indication: 54-year-old male with abrasion on right side of forehead, does not remember how this happened. Technique: Non-IV contrast axial images were obtained through the brain. Reconstructed coronal and sagittal images were created and reviewed. Findings: I again note moderate enlargement of the lateral and third ventricles representing no change from 07/03/2019. There is mild prominence of the temporal horns of both lateral ventricles, right greater than left, representing no change. The fourth ventricle is only slightly prominent and remains midline. All these findings are unchanged from 07/03/2019. Consider noncommunicating hydrocephalus. No focal mass effect or midline shift is seen. No acute intracranial bleed or abnormal extra-axial fluid collection is seen. Only minimal bilateral periventricular and subcortical chronic white matter ischemic changes are seen representing no change. No new cortical infarct is seen. The cortical sulci are mildly prominent. This also is unchanged. The calvarium of the skull appears intact without fracture or other significant focal bone lesion. The orbits appear grossly unremarkable. The visualized paranasal sinuses reveal minimal mucoperiosteal thickening within the ethmoid sinuses representing no change. Small polyps within the ethmoid sinuses are not excluded. No air-fluid levels are seen. The mastoid air cells are clear without effusion. The middle ear cavities appear grossly unremarkable. Impression: 1. No acute intracranial bleed or other acute intracranial process is seen. 2. I again see asymmetric enlargement of the lateral and third ventricles with respect to the fourth ventricle. This is unchanged. Again, consider noncommunicating hydrocephalus. 3. Only minimal chronic small vessel ischemic white matter disease is seen. No cortical infarct is evident. 4. The calvarium of the skull appears intact. 5. Minor scattered mucosal thickening versus small polyps within the ethmoid sinuses. This appears unchanged.
[2019-12-14 09:29] VITALS: BP 107/67; PULSE 75; O2SAT 98
== END 2019-12-14 09:29 | disposition home or self-care (01) ==
LOC: ED 07:39
DX: S00.83XA Contusion of other part of head, initial encounter (principal); W17.89XA Other fall from one level to another, initial encounter; Y93.9 Activity, unspecified; Y92.129 Unspecified place in nursing home as the place of occurrence of the external cause; R51 Headache; Z79.899 Other long term (current) drug therapy; F03.90 Unspecified dementia, unspecified severity, without behavioral disturbance, psychotic disturbance, mood disturbance, and anxiety; I10 Essential (primary) hypertension; E03.9 Hypothyroidism, unspecified; I87.8 Other specified disorders of veins; I87.2 Venous insufficiency (chronic) (peripheral); S00.91XA Abrasion of unspecified part of head, initial encounter; M54.5 Low back pain; R22.43 Localized swelling, mass and lump, lower limb, bilateral
CPT/HCPCS: 70450; 99283

== ENCOUNTER 2020-01-07 06:49 | Emergency (ER) | payer MEDICAID ==
[2020-01-07] MEDS ORDERED: Sodium Chloride 0.9% 1000 ML 1,000 ML IV STA (07:02)
[2020-01-07] MEDS ORDERED: Sodium Chloride 0.9% 1000 ML 1,000 ML ONE (07:08)
[2020-01-07 07:17] LABS: Absolute Neutrophil Ct (ANC) 2.03 (1.4-6.9); BASOPHIL % 0.3 % (0.0-0.4); Basophil (Absolute #) 0.02 (0-0.4); Eosinophil % 5.1 % (0.00-5.0); Eosinophil (Absolute #) 0.34 (0-0.5); Hematocrit 39.8 % (42-50); Lymphocyte (Absolute #) 3.47 (1.0-4.6); Lymphocytes % 52.5 % (24.0-44.0); Mean Cell Volume 104.2 fl (78-100); Mean Corpuscular Hgb Concent. 32.7 g/dl (32-36); Mean Platelet Volume 12.1 fl (7.5-11.0); Monocyte (Absolute #) 0.75 (0.0-1.3); Monocytes % 11.3 % (0.0-12.0); Neutrophil % 30.8 % (36.0-66.0); Platelet Count 196 K/mm3 (150-450); Red Blood Count 3.82 M/mm3 (4.1-5.6); Red Cell Distribution Width 16.5 % (11.5-14.0); White Blood Count 6.6 K/mm3 (4.0-10.5)
--- NOTE | 2020-01-07 07:28 | ERPHSYRPT ---
- History of Present Illness Time Seen by Provider: 01/07/20 07:23 Source: patient Exam Limitations: no limitations Patient Subjective Stated Complaint: pt fell onto floor and had seizure Triage Nursing Assessment: pt was walking with walker and fell onto floor, began having seizure activity. Pt hit head on floor. Pt has small knot to right side of forehead. Lungs are coarse exp. Physician History: pt was walking with walker and fell onto floor, began having seizure activity. Pt hit head on floor. Pt has small knot to right side of forehead. Time of Onset/Last Time Seen Normal: Patient is a 54-year-old male lives at shelter while walking with walker Timing/Duration: today Severity: moderate Character of Deficits: impaired speech Deficits: weak Baseline/Normal Cognition: alert but confused Current Cognition: alert but confused Baseline Gait: uses walker Associated Symptoms: confusion, other (goose bump on right forehead) Allergies/Adverse Reactions: No Known Drug Allergies Allergy (Verified 01/07/20 07:08) Home Medications: Fluoxetine HCl 10 mg [Prozac 10 mg] 10 mg PO DAILY 01/06/18 [History] Docusate Sodium 100 mg [Colace 100 MG] 100 mg PO BID 01/20/18 [History] ARIPiprazole [Aripiprazole Odt] 1 tab PO DAILY 12/14/19 [History] Benztropine Mesylate 1 tab PO DAILY 12/14/19 [History] Levothyroxine Sodium 75 Mcg [Synthroid 75 Mcg] 1 tab PO DAILY 12/14/19 [History] Omeprazole 1 tab PO BID 12/14/19 [History] Potassium Chloride 1 tab PO DAILY 12/14/19 [History] Hx Tetanus, Diphtheria Vaccination/Date Given: Yes Hx Influenza Vaccination/Date Given: No Hx Pneumococcal Vaccination/Date Given: No Immunizations Up to Date: Yes Travel Risk - International Travel Have you traveled outside of the country in past 3 weeks: No - Coronavirus Screening Close contact with a COVID-19 positive Pt in past 14-21 Days: No - Review of Systems Constitutional: Weakness, No Fever, No Chills Eyes: No Symptoms Ears, Nose, & Throat: No Symptoms Respiratory: No Cough, No Dyspnea Cardiac: No Chest Pain, No Edema, No Syncope Abdominal/Gastrointestinal: No Abdominal Pain, No Nausea, No Vomiting, No Diarrhea Genitourinary Symptoms: No Dysuria Musculoskeletal: Fall, No Back Pain, No Neck Pain Skin: No Rash Neurological: Lethargy, Seizure, No Dizziness, No Focal Weakness, No Sensory Changes Psychological: No Symptoms Endocrine: No Symptoms Hematologic/Lymphatic: No Symptoms All Other Systems: Reviewed and Negative - Past Medical History Pertinent Past Medical History: Yes Neurological History: Dementia, Seizures ENT History: No Pertinent History Cardiac History: Hypertension Respiratory History: No Pertinent History Endocrine Medical History: Hypothyroidism Musculoskeletal History: No Pertinent History GI Medical History: GERD History: No Pertinent History Psycho-Social History: Depression, Other Male Reproductive Disorders: No Pertinent History Other Medical History: TBI from [facility] - Past Surgical History Past Surgical History: Yes (unknown/no history on transfer) Neuro Surgical History: No Pertinent History Cardiac: No Pertinent History Respiratory: No Pertinent History Gastrointestinal: Appendectomy, Cholecystectomy, Hemorrhoidectomy Genitourinary: No Pertinent History Musculoskeletal: No Pertinent History Male Surgical History: No Pertinent History Other Surgical History: caregiver states she doesn't know what surgeries he's had. [place] - HAD JOCELYNN, APPY, AND HEMORROIDECTOMY - Social History Smoking Status: Never smoker How long have you smoked: years Exposure to second hand smoke: No Alcohol Use: None Drug Use: none Patient Lives Alone: No Significant Family History: no pertinent family hx - Nursing Vital Signs Nursing Vital Signs: Initial Vital Signs Pulse Rate 71 01/07/20 06:54 Respiratory Rate 20 01/07/20 06:54 Blood Pressure 109/71 01/07/20 06:54 O2 Sat by Pulse Oximetry 92 L 01/07/20 06:54 Pain Scale Pain Intensity 0 - [place] Coma Scale Best Eye Response (Raimundo): (4) open spontaneously Best Verbal Response ([place]aim[place]): (4) confused conversation Best Motor Response ([place]): (6) obeys commands [place] Total: 14 - Physical Exam General Appearance: mild distress, alert Eye Exam: bilateral eye: PERRL, EOMI Ears, Nose, Throat Exam: normal ENT inspection, moist mucous membranes Neck Exam: normal inspection, non-tender, supple Respiratory: normal breath sounds, airway intact, diminished breath sounds, No respiratory distress Cardiovascular: regular rate/rhythm, No edema Gastrointestinal: soft, No tenderness, No distention Back Exam: normal inspection Extremity Exam: normal inspection, No pedal edema 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, oriented x 3 toggler Exam: tongue midline Coordination/Gait: normal finger to nose, normal gait Skin Exam: normal color, warm, dry, No rash SpO2: 92 - Course Nursing assessment & vital signs reviewed: Yes EKG Interpreted by Me: Sinus Rhythm - CT Exams Head CT Interpretation: Tele-radiologist Report (no acute findings) Cervical Spine CT Interpretation: Tele-radiologist Report (osteoarthritic changes, cervical osteophytes) Ordered Tests: Active Orders 24 hr Category Date Time Status EKG-ER Only STAT Care 01/07/20 07:02 Active CERVICAL SPINE WO CONTRAST [CT] Stat Exams 01/07/20 07:05 Taken HEAD WITHOUT CONTRAST [CT] Stat Exams 01/07/20 07:05 Taken CBC W DIFF Stat Lab 01/07/20 07:15 Completed CMP Stat Lab 01/07/20 07:15 Completed UA W/RFX UR CULTURE Stat Lab 01/07/20 07:04 Uncollected Urine Triage Profile Stat Lab 01/07/20 07:04 Uncollected Medication Summary Generic Name Dose Route Start Last Admin Trade Name Freq PRN Reason Stop Dose Admin Sodium Chloride 1,000 mls @ 999 mls/hr 01/07/20 07:02 01/07/20 07:10 Sodium Chloride 0.9% 1000 Ml IV 01/07/20 08:02 999 mls/hr .[id number] STA Administration Discontinued Medications Generic Name Dose Route Start Last Admin Trade Name Freq PRN Reason Stop Dose Admin Sodium Chloride Confirm 01/07/20 07:08 Sodium Chloride 0.9% 1000 Ml Administered 01/07/20 07:09 Dose 1,000 mls @ ud .ROUTE .STK-MED ONE Lab/Rad Data: Laboratory Result Diagrams 01/07/20 07:15 01/07/20 07:15 Laboratory Results 01/07/20 01/07/20 Range/Units 07:15 07:15 WBC 6.6 (4.0-10.5) K/mm3 RBC 3.82 L (4.1-5.6) M/mm3 Hgb 13.0 (12.5-18.0) gm/dl Hct 39.8 L (42-50) % MCV 104.2 H (78-100) fl MCH 34.0 H (26-32) pg MCHC 32.7 (32-36) g/dl RDW 16.5 H (11.5-14.0) % Plt Count 196 (150-450) K/mm3 MPV 12.1 H (7.5-11.0) fl Gran % 30.8 L (36.0-66.0) % Eos # (Auto) 0.34 (0-0.5) Absolute Lymphs (auto) 3.47 (1.0-4.6) Absolute Monos (auto) 0.75 (0.0-1.3) Lymphocytes % 52.5 H (24.0-44.0) % Monocytes % 11.3 (0.0-12.0) % Eosinophils % 5.1 H (0.00-5.0) % Basophils % 0.3 (0.0-0.4) % Absolute Granulocytes 2.03 (1.4-6.9) Basophils # 0.02 (0-0.4) Sodium 139 (137-145) mmol/L Potassium 4.9 (3.5-5.1) mmol/L Chloride 103 (98-107) mmol/L Carbon Dioxide 24 (22-30) mmol/L Anion Gap 16.3 H (5-15) MEQ/L BUN 18 (9-20) mg/dL Creatinine 0.74 (0.66-1.25) mg/dL Estimated GFR > 60.0 ML/MIN Glucose 87 (74-106) mg/dL Calcium 9.5 (8.4-10.2) mg/dL Total Bilirubin 1.10 (0.2-1.3) mg/dL AST 52 (17-59) U/L ALT 36 (0-50) U/L Alkaline Phosphatase 96 (38-126) U/L Serum Total Protein 8.3 H (6.3-8.2) g/dL Albumin 3.9 (3.5-5.0) g/dL - Progress Progress: improved Counseled pt/family regarding: lab results, diagnosis, need for follow-up, rad results - Departure Departure Disposition: Home Clinical Impression: Seizure after head injury Head injury due to trauma Qualifiers: Encounter type: initial encounter Qualified Code(s): S09.90XA - Unspecified injury of head, initial encounter Condition: Stable Critical Care Time: Yes Critical Care Time(excluding separately billable procedures): Critical 30-74 mins Referrals: [facility] [Primary Care Provider] - Instructions: Preventing Falls
[2020-01-07 07:33] LABS: ALBUMIN 3.9 g/dL (3.5-5.0); ALKALINE PHOSPHATASE 96 U/L (38-126); ANION GAP 16.3 MEQ/L (5-15); BLOOD UREA NITROGEN 18 mg/dL (9-20); CHLORIDE 103 mmol/L (98-107); Calcium 9.5 mg/dL (8.4-10.2); Carbon Dioxide 24 mmol/L (22-30); Creatinine 1 0.74 mg/dL (0.66-1.25); Glucose 87 mg/dL (74-106); Potassium 4.9 mmol/L (3.5-5.1); SGOT/AST 52 U/L (17-59); SGPT/ALT 36 U/L (0-50); SODIUM 139 mmol/L (137-145); Total Protein 8.3 g/dL (6.3-8.2)
[2020-01-07 08:07] VITALS: BP 96/60; PULSE 72; O2SAT 97
--- NOTE | 2020-01-07 08:56 | XRAY ---
Indication: Seizure with fall. Dementia. Multiple contiguous axial images obtained through the head without contrast. Comparison: December 14, 2019. Several images slightly degraded by motion artifact. Stable age-appropriate global atrophy and mild periventricular degenerative micro-ischemia. Both lateral and third ventricles remain prominent. No gross acute intracranial hemorrhage, abnormal extra-axial fluid collection, or mass effect. Bony calvarium grossly intact. Visualized paranasal sinuses and mastoid air cells are clear. Impression: 1. Motion artifact. Grossly stable aging brain. 2. No gross new or acute intracranial abnormalities. 3. Stable prominent third/lateral ventricles. Again rule out noncommunicating type hydrocephalus. Comment: Preliminary interpretation was made by [facility]. No critical discrepancy.
--- NOTE | 2020-01-07 08:59 | XRAY ---
Indication: Seizure with fall. Dementia. Multiple contiguous axial images obtained through the cervical spine. Sagittal and coronal reformatted images obtained. Comparison: None Several images slightly degraded by motion artifact even with repeat CT. Axial images grossly negative for acute fracture, suspicious bony lesions, or canal stenosis. Mild/moderate multilevel bridging and nonbridging endplates osteophytes. Incidental old left 3-5 posterior rib fractures with fixation wires. Sagittal and coronal reformatted images demonstrates normal alignment with minimal C5-C7 disc space narrowing. No acute compression fracture, subluxation, or jumped facet. Normal appearing craniocervical junction. Visualized noncontrasted soft tissues unremarkable. Impression: 1. Motion artifact. 2. No gross acute fracture. 3. Incidental multilevel bridging/nonbridging endplate osteophytes, C5-C7 disc space narrowing, and old left rib fractures. Comment: Preliminary interpretation was made by [facility]. No critical discrepancy.
== END 2020-01-07 08:35 | disposition home or self-care (01) ==
LOC: ED 06:49
DX: R56.9 Unspecified convulsions (principal); R41.0 Disorientation, unspecified; W18.39XA Other fall on same level, initial encounter; Y92.9 Unspecified place or not applicable; Z79.899 Other long term (current) drug therapy; S00.83XA Contusion of other part of head, initial encounter
CPT/HCPCS: 36000; 36415; 70450; 72125; 80053; 85025; 93005; 96360; 96374; 99284; 99285; 99291; J2060

== ENCOUNTER 2020-01-07 15:05 | Emergency (ER) | payer MEDICAID ==
[2020-01-07] MEDS ORDERED: Ativan 2 MG/1 ML VIAL IV ONE (15:10)
[2020-01-07] MEDS ORDERED: Ativan 2 MG/1 ML VIAL ONE (15:10)
[2020-01-07] MEDS ORDERED: Sodium Chloride 0.9% 1000 ML 1,000 ML IV STA (15:10)
[2020-01-07] MEDS ORDERED: Sodium Chloride 0.9% 1000 ML 1,000 ML ONE (15:14)
[2020-01-07 15:20] VITALS: BP 131/69
--- NOTE | 2020-01-07 15:27 | ERPHSYRPT ---
- History of Present Illness Time Seen by Provider: 01/07/20 15:22 Source: EMS Exam Limitations: no limitations Patient Subjective Stated Complaint: Seizure Triage Nursing Assessment: Patient brought to ED via EMS and transferred to bed with assist of 4. Patient Alert to self only. Patient has hx of TBI. EMS states they were called to intermediate for patient having a seizure. EMS stated patient was lying on the couch after staff stated he has a seizure. Patient lethragic at this time. Poor historian at this time. 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 Patient was evaluated in the emergency room here. CT head CT spine and all other blood tests were unremarkable. Patient has unremarkable emergency room course and patient did not have any seizure in the emergency room so patient was sent back to the intermediate approximately 6 hours ago. Approximately an hour ago when he was sitting on his bed suddenly he developed another grand mal seizure-like activity. When patient was brought into the emergency room patient was in postictal phase. Timing/Duration: today Deficits: decrease ability to stand Baseline/Normal Cognition: poor alertness Current Cognition: poor alertness Baseline Gait: unable to walk Associated Symptoms: confusion, seizures, slurred speech Allergies/Adverse Reactions: No Known Drug Allergies Allergy (Verified 01/07/20 15:05) Home Medications: Fluoxetine HCl 10 mg [Prozac 10 mg] 10 mg PO DAILY 01/06/18 [History] Docusate Sodium 100 mg [Colace 100 MG] 100 mg PO BID 01/20/18 [History] ARIPiprazole [Aripiprazole Odt] 1 tab PO DAILY 12/14/19 [History] Benztropine Mesylate 1 tab PO DAILY 12/14/19 [History] Levothyroxine Sodium 75 Mcg [Synthroid 75 Mcg] 1 tab PO DAILY 12/14/19 [History] Omeprazole 1 tab PO BID 12/14/19 [History] Potassium Chloride 1 tab PO DAILY 12/14/19 [History] Hx Tetanus, Diphtheria Vaccination/Date Given: Yes Hx Influenza Vaccination/Date Given: No Hx Pneumococcal Vaccination/Date Given: No Immunizations Up to Date: Yes Travel Risk - International Travel Have you traveled outside of the country in past 3 weeks: No - Coronavirus Screening Are you exhibiting any of the following symptoms?: No Close contact with a COVID-19 positive Pt in past 14-21 Days: No - Review of Systems Constitutional: Lethargy, No Fever, No Chills Eyes: No Symptoms Ears, Nose, & Throat: No Symptoms Respiratory: No Cough, No Dyspnea Cardiac: No Chest Pain, No Edema, No Syncope Abdominal/Gastrointestinal: No Abdominal Pain, No Nausea, No Vomiting, No Diarrhea Genitourinary Symptoms: No Dysuria Musculoskeletal: No Back Pain, No Neck Pain Skin: No Rash Neurological: Seizure, No Dizziness, No Focal Weakness, No Sensory Changes Psychological: No Symptoms Endocrine: No Symptoms All Other Systems: Reviewed and Negative - Past Medical History Pertinent Past Medical History: Yes Neurological History: Dementia, Seizures ENT History: No Pertinent History Cardiac History: Hypertension Respiratory History: No Pertinent History Endocrine Medical History: Hypothyroidism Musculoskeletal History: No Pertinent History GI Medical History: GERD History: No Pertinent History Psycho-Social History: Depression, Other Male Reproductive Disorders: No Pertinent History Other Medical History: TBI from [facility] - Past Surgical History Past Surgical History: Yes (unknown/no history on transfer) Neuro Surgical History: No Pertinent History Cardiac: No Pertinent History Respiratory: No Pertinent History Gastrointestinal: Appendectomy, Cholecystectomy, Hemorrhoidectomy Genitourinary: No Pertinent History Musculoskeletal: No Pertinent History Male Surgical History: No Pertinent History Other Surgical History: caregiver states she doesn't know what surgeries he's had. [place] - HAD JOCELYNN, APPY, AND HEMORROIDECTOMY - Social History Smoking Status: Never smoker How long have you smoked: years Exposure to second hand smoke: No Alcohol Use: None Drug Use: none Patient Lives Alone: No (long term) Significant Family History: no pertinent family hx - Nursing Vital Signs Nursing Vital Signs: Initial Vital Signs Temperature 98.0 F 01/07/20 15:07 Pulse Rate 88 01/07/20 15:07 Respiratory Rate 18 01/07/20 15:07 Blood Pressure 131/69 01/07/20 15:07 O2 Sat by Pulse Oximetry 94 L 01/07/20 15:07 Pain Scale Pain Intensity 0 - Raimundo Coma Scale Best Eye Response (Dawn): (3) open to voice Best Verbal Response (Dawn): (4) confused conversation Best Motor Response (Raimundo): (6) obeys commands Dawn Total: 13 - Physical Exam General Appearance: mild distress, lethargy Eye Exam: bilateral eye: PERRL, EOMI Ears, Nose, Throat Exam: normal ENT inspection, moist mucous membranes Neck Exam: normal inspection, non-tender, supple Respiratory: normal breath sounds, lungs clear, airway intact, No respiratory distress Cardiovascular: regular rate/rhythm, No edema Gastrointestinal: soft, No tenderness, No distention Rectal Exam: deferred Back Exam: normal inspection Extremity Exam: normal inspection, No pedal edema 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, 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 Exam: abnormal speech, tongue midline Motor/Sensory: no motor deficit, no sensory deficit Skin Exam: normal color, warm, dry, No rash SpO2 Interpretation: normal SpO2: 94 O2 Delivery: Room Air - Course Nursing assessment & vital signs reviewed: Yes Ordered Tests: Active Orders 24 hr Category Date Time Status IV Insertion STAT Care 01/07/20 15:11 Active CBC W DIFF Stat Lab 01/07/20 15:10 Ordered CMP Stat Lab 01/07/20 15:10 Ordered Medication Summary Generic Name Dose Route Start Last Admin Trade Name Freq PRN Reason Stop Dose Admin Sodium Chloride 1,000 mls @ 999 mls/hr 01/07/20 15:10 01/07/20 15:15 Sodium Chloride 0.9% 1000 Ml IV 01/07/20 16:10 999 mls/hr .Q1H1M STA Administration Discontinued Medications Generic Name Dose Route Start Last Admin Trade Name Freq PRN Reason Stop Dose Admin Sodium Chloride Confirm 01/07/20 15:14 Sodium Chloride 0.9% 1000 Ml Administered 01/07/20 15:15 Dose 1,000 mls @ ud .ROUTE .STK-MED ONE Lorazepam 2 mg 01/07/20 15:10 01/07/20 15:13 Ativan 2 Mg/1 Ml Vial IV 01/07/20 15:11 2 mg STAT ONE Administration Lorazepam Confirm 01/07/20 15:10 Ativan 2 Mg/1 Ml Vial Administered 01/07/20 15:11 Dose 2 mg .ROUTE .STK-MED ONE - Progress Progress: unchanged Discussed with : Dudley ([facility] Hospitalist service) Will see patient in: other ([facility]) - Departure Departure Disposition: Transfer Clinical Impression: History of traumatic brain injury, Seizure after head injury Head injury due to trauma Qualifiers: Encounter type: subsequent encounter Qualified Code(s): S09.90XD - Unspecified injury of head, subsequent encounter Condition: Fair Critical Care Time: Yes Critical Care Time(excluding separately billable procedures): Critical 30-74 mins Referrals: RESCARE,RESCARE [Primary Care Provider] -
[2020-01-07 15:38] LABS: Absolute Neutrophil Ct (ANC) 6.77 (1.4-6.9); BASOPHIL % 0.2 % (0.0-0.4); Basophil (Absolute #) 0.02 (0-0.4); Eosinophil (Absolute #) 0.09 (0-0.5); Hematocrit 35.8 % (42-50); Hemoglobin 12.2 gm/dl (12.5-18.0); Mean Cell Volume 101.4 fl (78-100); Mean Corpuscular Hemoglobin 34.6 pg (26-32); Mean Corpuscular Hgb Concent. 34.1 g/dl (32-36); Monocyte (Absolute #) 1.02 (0.0-1.3); Monocytes % 10.9 % (0.0-12.0); Neutrophil % 71.9 % (36.0-66.0); Platelet Count 204 K/mm3 (150-450); Red Blood Count 3.53 M/mm3 (4.1-5.6); White Blood Count 9.4 K/mm3 (4.0-10.5)
[2020-01-07 15:55] LABS: ALBUMIN 3.6 g/dL (3.5-5.0); ALKALINE PHOSPHATASE 96 U/L (38-126); ANION GAP 12.3 MEQ/L (5-15); BLOOD UREA NITROGEN 20 mg/dL (9-20); CHLORIDE 103 mmol/L (98-107); Carbon Dioxide 29 mmol/L (22-30); Creatinine 1 0.79 mg/dL (0.66-1.25); Glucose 81 mg/dL (74-106); Potassium 4.3 mmol/L (3.5-5.1); SGOT/AST 52 U/L (17-59); SGPT/ALT 35 U/L (0-50); SODIUM 140 mmol/L (137-145); Total Protein 7.5 g/dL (6.3-8.2)
[2020-01-07 16:15] VITALS: PULSE 79; O2SAT 97
== END 2020-01-07 17:05 | disposition short-term general hospital (02) ==
LOC: ED 15:05
DX: S09.90XD Unspecified injury of head, subsequent encounter (principal); R56.9 Unspecified convulsions; E03.9 Hypothyroidism, unspecified; Z79.899 Other long term (current) drug therapy; I10 Essential (primary) hypertension; F03.90 Unspecified dementia, unspecified severity, without behavioral disturbance, psychotic disturbance, mood disturbance, and anxiety; R41.0 Disorientation, unspecified
CPT/HCPCS: 36000; 36415; 80053; 85025; 96360; 96374; 99285; 99291; J2060

== ENCOUNTER 2020-01-15 03:48 | Emergency (ER) | payer MEDICAID ==
[2020-01-15] MEDS ORDERED: Ativan 2 MG/1 ML VIAL IV ONE (03:52)
[2020-01-15] MEDS ORDERED: SODIUM CHLORIDE 0.9% IV ONE (03:52)
[2020-01-15] MEDS ORDERED: CEREBYX IV ONE (03:52)
[2020-01-15] MEDS ORDERED: Ativan 2 MG/1 ML VIAL ONE (03:52)
--- NOTE | 2020-01-15 03:52 | ERPHSYRPT ---
- History of Present Illness Time Seen by Provider: 01/15/20 03:48 Source: EMS Exam Limitations: other (pt will not answer my questions.) Physician History: Pt was brought into ER by EMS reportedly having had two 4 minute generalized seizures at home and one 1 minute generalized seizure in the ambulance. Pt will not answer my questions. Allergies/Adverse Reactions: No Known Drug Allergies Allergy (Verified 01/15/20 06:11) Home Medications: Fluoxetine HCl 10 mg [Prozac 10 mg] 10 mg PO DAILY 01/06/18 [History] Docusate Sodium 100 mg [Colace 100 MG] 100 mg PO BID 01/20/18 [History] ARIPiprazole [Aripiprazole Odt] 1 tab PO DAILY 12/14/19 [History] Benztropine Mesylate 1 tab PO DAILY 12/14/19 [History] Levothyroxine Sodium 75 Mcg [Synthroid 75 Mcg] 1 tab PO DAILY 12/14/19 [History] Omeprazole 1 tab PO BID 12/14/19 [History] Potassium Chloride 1 tab PO DAILY 12/14/19 [History] Cefpodoxime Proxetil 200 mg [Vantin 200 mg] 200 mg PO BID 01/15/20 [History] Oxcarbazepine 300 mg [Trileptal 300 MG Tablet] 150 mg PO DAILY 01/15/20 [History] Hx Tetanus, Diphtheria Vaccination/Date Given: Yes Hx Influenza Vaccination/Date Given: No Hx Pneumococcal Vaccination/Date Given: No - Review of Systems All Other Systems: Unable due to condition (pt will not answer my questions.) - Past Medical History Pertinent Past Medical History: Yes Neurological History: Dementia, Seizures ENT History: No Pertinent History Cardiac History: Hypertension Respiratory History: No Pertinent History Endocrine Medical History: Hypothyroidism Musculoskeletal History: No Pertinent History GI Medical History: GERD History: No Pertinent History Psycho-Social History: Depression, Other Male Reproductive Disorders: No Pertinent History Other Medical History: TBI from [facility] - Past Surgical History Past Surgical History: Yes (unknown/no history on transfer) Neuro Surgical History: No Pertinent History Cardiac: No Pertinent History Respiratory: No Pertinent History Gastrointestinal: Appendectomy, Cholecystectomy, Hemorrhoidectomy Genitourinary: No Pertinent History Musculoskeletal: No Pertinent History Male Surgical History: No Pertinent History Other Surgical History: caregiver states she doesn't know what surgeries he's had. [place] - HAD JOCELYNN, APPY, AND HEMORROIDECTOMY - Social History Smoking Status: Never smoker How long have you smoked: years Exposure to second hand smoke: No Alcohol Use: None Drug Use: none Patient Lives Alone: No (senior care) Significant Family History: no pertinent family hx - Nursing Vital Signs Nursing Vital Signs: Initial Vital Signs Temperature 99.7 F 01/15/20 03:52 Pulse Rate 103 H 01/15/20 03:52 Respiratory Rate 18 01/15/20 03:52 Blood Pressure 99/52 01/15/20 03:52 O2 Sat by Pulse Oximetry 97 01/15/20 03:52 - Physical Exam General Appearance: lethargy Eye Exam: bilateral eye: PERRL Ears, Nose, Throat Exam: dry mucous membranes Neck Exam: normal inspection Respiratory: normal breath sounds Cardiovascular: normal heart sounds Gastrointestinal: soft, normal bowel sounds Extremity Exam: pedal edema Peripheral Pulses: dorsalis-pedis (R): 1+, dorsalis-pedis (L): 1+ 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 Exam: PERRL Motor/Sensory: weak motor strength RLE, weak motor strength LLE Skin Exam: other (stasis dermatitis of legs) SpO2 Interpretation: normal SpO2: 97 O2 Delivery: Room Air - Course Nursing assessment & vital signs reviewed: Yes EKG Interpreted by Me: RATE (80), Sinus Rhythm, NORMAL AXIS - CT Exams Chest CT Interpretation: Tele-radiologist Report (see report) Head CT Interpretation: Tele-radiologist Report (see report) Ordered Tests: Active Orders 24 hr Category Date Time Status Accucheck STAT Care 01/15/20 03:52 Active CO2 Monitoring STAT Care 01/15/20 06:25 Active Manager Front STAT Care 01/15/20 03:54 Active Catheter-[place] STAT Care 01/15/20 03:52 Active EKG-ER Only STAT Care 01/15/20 03:52 Active IV Insertion STAT Care 01/15/20 03:52 Active Pulse Oximetry (ED) STAT Care 01/15/20 03:52 Active Seizure Precautions -SCCHED STAT Care 01/15/20 03:52 Active CHEST 1 VIEW (PORTABLE) Stat Exams 01/15/20 03:59 Taken CHEST WITH CONTRAST [CT] Stat Exams 01/15/20 04:57 Taken HEAD WITHOUT CONTRAST [CT] Stat Exams 01/15/20 03:56 Taken BLOOD CULTURE Stat Lab 01/15/20 04:47 Received CBC W DIFF Stat Lab 01/15/20 04:07 Completed CMP Stat Lab 01/15/20 04:07 Completed CULTURE,URINE Stat Lab 01/15/20 03:53 Uncollected D-DIMER QUANTITATIVE Stat Lab 01/15/20 04:07 Completed Glucose,Critical Care Urgent Lab 01/15/20 04:02 Completed Lactic Acid Stat Lab 01/15/20 04:02 Completed Lactic Acid Stat Lab 01/15/20 06:38 Received MAGNESIUM Stat Lab 01/15/20 04:07 Completed NT PRO BNP Stat Lab 01/15/20 04:07 Completed TROPONIN Q3H Lab 01/15/20 04:07 Completed TROPONIN Q3H Lab 01/15/20 07:00 Ordered TROPONIN Q3H Lab 01/15/20 10:00 Ordered TROPONIN Q3H Lab 01/15/20 13:00 Ordered TROPONIN Q3H Lab 01/15/20 16:00 Ordered UA W/RFX UR CULTURE Stat Lab 01/15/20 03:53 Uncollected Urine Triage Profile Stat Lab 01/15/20 03:55 Uncollected Medication Summary Generic Name Dose Route Start Last Admin Trade Name Freq PRN Reason Stop Dose Admin Sodium Chloride 1,000 mls @ 100 mls/hr 01/15/20 04:00 01/15/20 04:07 Sodium Chloride 0.9% 1000 Ml IV 02/14/20 03:59 100 mls/hr .Q10H RIMMA Administration Discontinued Medications Generic Name Dose Route Start Last Admin Trade Name Freq PRN Reason Stop Dose Admin Diazepam 10 mg 01/15/20 04:09 01/15/20 04:12 Valium 10 Mg/2 Ml Syringe IV 01/15/20 04:10 10 mg STAT ONE Administration Diazepam Confirm 01/15/20 04:09 Valium 10 Mg/2 Ml Syringe Administered 01/15/20 04:10 Dose 10 mg .ROUTE .STK-MED ONE Fosphenytoin Sodium Confirm 01/15/20 03:55 Cerebyx 50 Mg/Ml Administered 01/15/20 03:56 Dose 1,000 mg .ROUTE .STK-MED ONE Fosphenytoin Sodium 750 mg/ 115 mls @ 240 mls/hr 01/15/20 03:52 01/15/20 04:08 Sodium Chloride IV 01/15/20 04:20 240 mls/hr STAT ONE Administration Sodium Chloride Confirm 01/15/20 04:00 Sodium Chloride 0.9% 100 Ml Ivpb Administered 01/15/20 04:01 Dose 100 mls @ ud IV .STK-MED ONE Sodium Chloride 1,000 mls @ 999 mls/hr 01/15/20 04:12 01/15/20 04:54 Sodium Chloride 0.9% 1000 Ml IV 01/15/20 05:12 Not Given .Q1H1M STA Sodium Chloride 1,000 mls @ 999 mls/hr 01/15/20 04:49 01/15/20 04:53 Sodium Chloride 0.9% 1000 Ml IV 01/15/20 05:49 999 mls/hr .Q1H1M STA Administration Sodium Chloride 1,000 mls @ 999 mls/hr 01/15/20 05:00 01/15/20 05:47 Sodium Chloride 0.9% 1000 Ml IV 01/15/20 06:00 999 mls/hr .Q1H1M STA Administration Lorazepam 2 mg 01/15/20 03:52 01/15/20 03:53 Ativan 2 Mg/1 Ml Vial IV 01/15/20 03:53 2 mg STAT ONE Administration Lorazepam Confirm 01/15/20 03:52 Ativan 2 Mg/1 Ml Vial Administered 01/15/20 03:53 Dose 2 mg .ROUTE .STK-MED ONE Lab/Rad Data: Laboratory Result Diagrams 01/15/20 04:07 01/15/20 04:07 Laboratory Results 01/15/20 01/15/20 01/15/20 Range/Units 04:07 04:07 04:07 WBC (4.0-10.5) K/mm3 RBC (4.1-5.6) M/mm3 Hgb (12.5-18.0) gm/dl Hct (42-50) % MCV (78-100) fl MCH (26-32) pg MCHC (32-36) g/dl RDW (11.5-14.0) % Plt Count (150-450) K/mm3 MPV (7.5-11.0) fl Gran % (36.0-66.0) % Eos # (Auto) (0-0.5) Absolute Lymphs (auto) (1.0-4.6) Absolute Monos (auto) (0.0-1.3) Lymphocytes % (24.0-44.0) % Monocytes % (0.0-12.0) % Eosinophils % (0.00-5.0) % Basophils % (0.0-0.4) % Absolute Granulocytes (1.4-6.9) Basophils # (0-0.4) D-Dimer 1508 H* (215-500) ng/mL Glucose 89 (70-110) Sodium 141 (137-145) mmol/L Potassium 4.2 (3.5-5.1) mmol/L Chloride 101 (98-107) mmol/L Carbon Dioxide 20 L (22-30) mmol/L Anion Gap 24.2 H (5-15) MEQ/L BUN 25 H (9-20) mg/dL Creatinine 0.98 (0.66-1.25) mg/dL Estimated GFR > 60.0 ML/MIN Lactic Acid (0.4-2.0) Calcium 9.5 (8.4-10.2) mg/dL Magnesium 1.8 (1.6-2.3) mg/dL Total Bilirubin 0.60 (0.2-1.3) mg/dL AST 52 (17-59) U/L ALT 32 (0-50) U/L Alkaline Phosphatase 87 (38-126) U/L Troponin I < 0.012 (0.000-0.034) ng/mL NT-Pro-B Natriuret Pep 113 (0-900) pg/mL Serum Total Protein 8.5 H (6.3-8.2) g/dL Albumin 4.3 (3.5-5.0) g/dL 01/15/20 01/15/20 01/15/20 Range/Units 04:07 04:02 04:02 WBC 8.6 (4.0-10.5) K/mm3 RBC 3.81 L (4.1-5.6) M/mm3 Hgb 13.0 (12.5-18.0) gm/dl Hct 40.3 L (42-50) % MCV 105.8 H (78-100) fl MCH 34.1 H (26-32) pg MCHC 32.3 (32-36) g/dl RDW 16.5 H (11.5-14.0) % Plt Count 218 (150-450) K/mm3 MPV 11.8 H (7.5-11.0) fl Gran % 34.3 L (36.0-66.0) % Eos # (Auto) 0.48 (0-0.5) Absolute Lymphs (auto) 3.85 (1.0-4.6) Absolute Monos (auto) 1.29 (0.0-1.3) Lymphocytes % 44.8 H (24.0-44.0) % Monocytes % 15.0 H (0.0-12.0) % Eosinophils % 5.6 H (0.00-5.0) % Basophils % 0.3 (0.0-0.4) % Absolute Granulocytes 2.94 (1.4-6.9) Basophils # 0.03 (0-0.4) D-Dimer (215-500) ng/mL Glucose 87 (70-110) Sodium (137-145) mmol/L Potassium (3.5-5.1) mmol/L Chloride (98-107) mmol/L Carbon Dioxide (22-30) mmol/L Anion Gap (5-15) MEQ/L BUN (9-20) mg/dL Creatinine (0.66-1.25) mg/dL Estimated GFR ML/MIN Lactic Acid 15.2 H (0.4-2.0) Calcium (8.4-10.2) mg/dL Magnesium (1.6-2.3) mg/dL Total Bilirubin (0.2-1.3) mg/dL AST (17-59) U/L ALT (0-50) U/L Alkaline Phosphatase (38-126) U/L Troponin I (0.000-0.034) ng/mL NT-Pro-B Natriuret Pep (0-900) pg/mL Serum Total Protein (6.3-8.2) g/dL Albumin (3.5-5.0) g/dL - Progress Progress: unchanged Progress Note: 01/15/20 07:04 Pt has had multiple seizures in ER. Discussed with Dr.: Other (Spoke with Dr. Smith(Hospitalist)([id number]) who accepted pt for transfer to [facility] as a direct admission.) Counseled pt/family regarding: lab results, diagnosis, rad results - Departure Departure Disposition: Transfer ([facility]) Clinical Impression: multiple seizures, Altered mental status, Hypertension, Hypothyroidism, GERD (gastroesophageal reflux disease), Depression Condition: Stable Critical Care Time: Yes Critical Care Time(excluding separately billable procedures): Critical 30-74 mins Referrals: RESCARE,RESCARE [Primary Care Provider] -
[2020-01-15] MEDS ORDERED: cereBYX 50 MG/ML ONE (03:55)
[2020-01-15] MEDS ORDERED: Sodium Chloride 0.9% 100 ML IVPB 100 ML IV ONE (04:00)
[2020-01-15] MEDS ORDERED: Sodium Chloride 0.9% 1000 ML 1,000 ML ONE ×4 (04:00→07:13)
[2020-01-15] MEDS ORDERED: Sodium Chloride 0.9% 1000 ML 1,000 ML IV SCH (04:00)
[2020-01-15] MEDS ORDERED: VALIUM 10 MG/2 ML SYRINGE ONE (04:09)
[2020-01-15] MEDS ORDERED: VALIUM 10 MG/2 ML SYRINGE IV ONE (04:09)
[2020-01-15] MEDS ORDERED: Sodium Chloride 0.9% 1000 ML 1,000 ML IV STA ×4 (04:12→07:10)
[2020-01-15 04:13] LABS: Absolute Neutrophil Ct (ANC) 2.94 (1.4-6.9); BASOPHIL % 0.3 % (0.0-0.4); Basophil (Absolute #) 0.03 (0-0.4); Eosinophil % 5.6 % (0.00-5.0); Eosinophil (Absolute #) 0.48 (0-0.5); Hematocrit 40.3 % (42-50); Lymphocyte (Absolute #) 3.85 (1.0-4.6); Lymphocytes % 44.8 % (24.0-44.0); Mean Cell Volume 105.8 fl (78-100); Mean Corpuscular Hemoglobin 34.1 pg (26-32); Mean Corpuscular Hgb Concent. 32.3 g/dl (32-36); Mean Platelet Volume 11.8 fl (7.5-11.0); Monocyte (Absolute #) 1.29 (0.0-1.3); Neutrophil % 34.3 % (36.0-66.0); Platelet Count 218 K/mm3 (150-450); Red Blood Count 3.81 M/mm3 (4.1-5.6); Red Cell Distribution Width 16.5 % (11.5-14.0); White Blood Count 8.6 K/mm3 (4.0-10.5)
[2020-01-15 04:39] LABS: ALBUMIN 4.3 g/dL (3.5-5.0); ALKALINE PHOSPHATASE 87 U/L (38-126); ANION GAP 24.2 MEQ/L (5-15); BLOOD UREA NITROGEN 25 mg/dL (9-20); CHLORIDE 101 mmol/L (98-107); Calcium 9.5 mg/dL (8.4-10.2); Carbon Dioxide 20 mmol/L (22-30); Creatinine 1 0.98 mg/dL (0.66-1.25); EST GLOMERULAR FILTRATION RATE > 60.0 ML/MIN; Glucose 89 mg/dL (74-106); MAGNESIUM 1.8 mg/dL (1.6-2.3); NT PRO BNP 113 pg/mL (0-900); Potassium 4.2 mmol/L (3.5-5.1); SGOT/AST 52 U/L (17-59); SGPT/ALT 32 U/L (0-50); SODIUM 141 mmol/L (137-145); Total Protein 8.5 g/dL (6.3-8.2)
[2020-01-15 08:22] VITALS: BP 87/56; PULSE 65; O2SAT 97
--- NOTE | 2020-01-15 09:42 | XRAY ---
Indication: Seizure. Multiple contiguous axial images obtained through the head without contrast. Comparison: January 07, 2020. Stable age-appropriate global atrophy and mild periventricular degenerative micro-ischemia. 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 Again no acute intracranial hemorrhage, abnormal extra-axial fluid collection, or mass effect. Bony calvarium remains intact. Visualized paranasal sinuses and mastoid air cells are clear. Impression: Stable atrophy, degenerative micro-ischemia, and prominent third/lateral ventricles. No new/acute findings. Comment: Preliminary interpretation was made by [facility]. No critical discrepancy.
--- NOTE | 2020-01-15 09:50 | XRAY ---
Indication: Elevated d-dimer. Multiple contiguous axial images obtained through the chest using 80 cc Isovue 370 contrast and PE protocol. Comparison: None. There is suboptimal opacification of the pulmonary arteries, mild respiration artifact, and beam artifact from patient's arms limiting evaluation of the more distal lobar and segmental branches. No central pulmonary embolus. Heart is not enlarged with left dual-lead pacemaker. No pathologic mediastinal/hilar lymphadenopathy. Lungs demonstrates bibasilar dependent atelectasis, left greater than right with left hemidiaphragm elevation. Small right upper lobe subpleural cystic changes. Right middle lobe demonstrates small focus of subsegmental atelectasis/scarring. No infiltrate or effusion. Bony thorax intact with mild degenerative changes throughout the spine. Also old bilateral rib fractures and left upper chest orthopedic wires in situ. Limited upper abdomen grossly unremarkable. Impression: 1. Pulmonary embolus evaluation limited due to suboptimal contrast opacification, respiration artifact, and beam artifact. No large central pulmonary embolus. 2. Bilateral atelectasis left greater than right with left hemidiaphragm elevation. 3. Chronic bony findings. Comment: Preliminary interpretation was made by [facility]. No critical discrepancy.
--- NOTE | 2020-01-15 09:52 | XRAY ---
Indication: Seizure. Comparison: June 03, 2018. Portable chest now demonstrates mild left hemidiaphragm elevation with adjacent atelectasis. Remaining heart and lungs unremarkable new left dual-lead pacemaker. Bony thorax intact again with mild degenerative changes and old left rib fractures.
== END 2020-01-15 09:46 | disposition short-term general hospital (02) ==
LOC: ED 03:48
DX: G40.909 Epilepsy, unspecified, not intractable, without status epilepticus (principal); R41.82 Altered mental status, unspecified; I10 Essential (primary) hypertension; E03.9 Hypothyroidism, unspecified; K21.9 Gastro-esophageal reflux disease without esophagitis; F32.9 Major depressive disorder, single episode, unspecified; Z79.899 Other long term (current) drug therapy
CPT/HCPCS: 36000; 36415; 51702; 70450; 71045; 71260; 80053; 82947; 82962; 83605; 83735; 83880; 84484; 85025; 85379; 87040; 93005; 93041; 94760; 96360; 96361; 96365; 96374; 96375; 99285; 99291; J2060; J3360; Q2009

== ENCOUNTER 2020-01-18 11:05 | Emergency (ER) | payer MEDICAID ==
[2020-01-18 11:13] VITALS: O2SAT 97
[2020-01-18 11:30] LABS: Absolute Neutrophil Ct (ANC) 3.21 (1.4-6.9); BASOPHIL % 0.5 % (0.0-0.4); Basophil (Absolute #) 0.04 (0-0.4); Eosinophil % 4.5 % (0.00-5.0); Eosinophil (Absolute #) 0.34 (0-0.5); Hematocrit 37.9 % (42-50); Hemoglobin 12.6 gm/dl (12.5-18.0); Lymphocyte (Absolute #) 2.68 (1.0-4.6); Lymphocytes % 35.3 % (24.0-44.0); Mean Cell Volume 104.1 fl (78-100); Mean Corpuscular Hemoglobin 34.6 pg (26-32); Mean Corpuscular Hgb Concent. 33.2 g/dl (32-36); Mean Platelet Volume 11.2 fl (7.5-11.0); Monocyte (Absolute #) 1.33 (0.0-1.3); Monocytes % 17.5 % (0.0-12.0); Neutrophil % 42.2 % (36.0-66.0); Platelet Count 216 K/mm3 (150-450); Red Blood Count 3.64 M/mm3 (4.1-5.6); Red Cell Distribution Width 16.6 % (11.5-14.0); White Blood Count 7.6 K/mm3 (4.0-10.5)
[2020-01-18 11:43] LABS: ALBUMIN 3.8 g/dL (3.5-5.0); ALKALINE PHOSPHATASE 82 U/L (38-126); BLOOD UREA NITROGEN 17 mg/dL (9-20); CHLORIDE 101 mmol/L (98-107); Calcium 9.1 mg/dL (8.4-10.2); Carbon Dioxide 32 mmol/L (22-30); Creatinine 1 0.75 mg/dL (0.66-1.25); EST GLOMERULAR FILTRATION RATE > 60.0 ML/MIN; Glucose 117 mg/dL (74-106); LIPASE 132 U/L (23-300); MAGNESIUM 1.7 mg/dL (1.6-2.3); Potassium 4.2 mmol/L (3.5-5.1); SGOT/AST 43 U/L (17-59); SGPT/ALT 30 U/L (0-50); SODIUM 139 mmol/L (137-145); Total Protein 7.9 g/dL (6.3-8.2)
--- NOTE | 2020-01-18 11:48 | ERPHSYRPT ---
- History of Present Illness Time Seen by Provider: 01/18/20 11:10 Source: patient Patient Subjective Stated Complaint: EMS states "He has had recent seizures and had a pacemeker placed. The worker at [facility] stated he looked at her and said i dont want to . The worker said she got scared and called for him to go to the hospital." Triage Nursing Assessment: Pt presented alert and orietned X 3, skin pwd Pt able to speak in slurred sentences, pt norm. PT in no apparent respiraotry distress. Physician History: Patient is a 54-year-old male with a history of TBI and seizure presents to our ED for medical screening. Patient was receiving maintenance care by his caregiver. Caregiver reports that patient looked at her and said "I want to ". Caregiver became concerned and called 911 to have patient brought to the ED for an evaluation. Patient has no specific complaints. No seizure activity observed. Patient has been taking all medications as prescribed. HPI limited due to mental status. Timing/Duration: today Severity: mild Modifying Factors: Improves With: nothing Associated Symptoms: No nausea, No vomiting, No abdominal pain, No shortness of breath, No heartburn, No diaphoresis, No cough, No chills, No chest pain, No fever, No headaches, No loss of appetite, No syncope, No seizure Allergies/Adverse Reactions: No Known Drug Allergies Allergy (Verified 01/15/20 06:11) Home Medications: Fluoxetine HCl 10 mg [Prozac 10 mg] 10 mg PO DAILY 01/06/18 [History] Docusate Sodium 100 mg [Colace 100 MG] 100 mg PO BID 01/20/18 [History] ARIPiprazole [Aripiprazole Odt] 1 tab PO DAILY 12/14/19 [History] Benztropine Mesylate 1 tab PO DAILY 12/14/19 [History] Levothyroxine Sodium 75 Mcg [Synthroid 75 Mcg] 1 tab PO DAILY 12/14/19 [History] Omeprazole 1 tab PO BID 12/14/19 [History] Potassium Chloride 1 tab PO DAILY 12/14/19 [History] Cefpodoxime Proxetil 200 mg [Vantin 200 mg] 200 mg PO BID 01/15/20 [History] Oxcarbazepine 300 mg [Trileptal 300 MG Tablet] 150 mg PO DAILY 01/15/20 [History] Hx Tetanus, Diphtheria Vaccination/Date Given: Yes Hx Influenza Vaccination/Date Given: No Hx Pneumococcal Vaccination/Date Given: No Immunizations Up to Date: Yes Travel Risk - International Travel Have you traveled outside of the country in past 3 weeks: No - Coronavirus Screening Are you exhibiting any of the following symptoms?: No Close contact with a COVID-19 positive Pt in past 14-21 Days: No - Review of Systems All Other Systems: Unable due to condition (Difficult to perform review of systems due to patient's chronic mental status/TBI.) - Past Medical History Pertinent Past Medical History: Yes Neurological History: Dementia, Seizures ENT History: No Pertinent History Cardiac History: Hypertension Respiratory History: No Pertinent History Endocrine Medical History: Hypothyroidism Musculoskeletal History: No Pertinent History GI Medical History: GERD History: No Pertinent History Psycho-Social History: Depression, Other Male Reproductive Disorders: No Pertinent History Other Medical History: TBI from [facility] - Past Surgical History Past Surgical History: Yes (unknown/no history on transfer) Neuro Surgical History: No Pertinent History Cardiac: No Pertinent History Respiratory: No Pertinent History Gastrointestinal: Appendectomy, Cholecystectomy, Hemorrhoidectomy Genitourinary: No Pertinent History Musculoskeletal: No Pertinent History Male Surgical History: No Pertinent History Other Surgical History: caregiver states she doesn't know what surgeries he's had. [place] - HAD JOCELYNN, APPY, AND HEMORROIDECTOMY - Social History Smoking Status: Never smoker How long have you smoked: years Exposure to second hand smoke: No Alcohol Use: None Drug Use: none Patient Lives Alone: Yes (shelter) Significant Family History: no pertinent family hx - Nursing Vital Signs Nursing Vital Signs: Initial Vital Signs Temperature 98.2 F 01/18/20 11:06 Pulse Rate 86 01/18/20 11:06 Respiratory Rate 20 01/18/20 11:06 Blood Pressure 126/75 01/18/20 11:06 O2 Sat by Pulse Oximetry 97 01/18/20 11:06 Pain Scale Pain Intensity 0 - Physical Exam General Appearance: no apparent distress, alert Eye Exam: PERRL/EOMI, eyes nml inspection, No scleral icterus, No pale conjunctivae Ears, Nose, Throat Exam: normal ENT inspection, TMs normal, pharynx normal, moist mucous membranes Neck Exam: normal inspection, non-tender, supple, full range of motion Respiratory Exam: normal breath sounds, lungs clear, No respiratory distress Cardiovascular Exam: regular rate/rhythm, normal heart sounds, normal peripheral pulses Gastrointestinal/Abdomen Exam: soft, normal bowel sounds, No tenderness, No mass Back Exam: normal inspection, normal range of motion, No CVA tenderness, No vertebral tenderness Extremity Exam: normal inspection, normal range of motion, pelvis stable, other (Chronic discoloration of bilateral lower extremities. Negative Homans sign bilaterally.) Neurologic Exam: alert, oriented x 3, cooperative, normal mood/affect, nml cerebellar function, nml station & gait, sensation nml, No motor deficits Skin Exam: normal color, warm, dry, No rash Lymphatic Exam: No adenopathy SpO2 Interpretation: normal SpO2: 97 O2 Delivery: Room Air - Course Nursing assessment & vital signs reviewed: Yes EKG Interpreted by Me: RATE ([id number]), Sinus Rhythm, NORMAL AXIS, NORMAL INTERVALS - Radiology Exams Chest X-ray Interpretation: Teleradiologist Report (Chest x-ray unchanged. No acute cardiopulmonary pathology.) Ordered Tests: Active Orders 24 hr Category Date Time Status Elevator Erector Helper STAT Care 01/18/20 11:08 Active EKG-ER Only STAT Care 01/18/20 11:08 Active IV Insertion STAT Care 01/18/20 11:08 Active Pulse Oximetry (ED) STAT Care 01/18/20 11:08 Active CHEST 1 VIEW (PORTABLE) Stat Exams 01/18/20 11:55 Completed CBC W DIFF Stat Lab 01/18/20 11:17 Completed CMP Stat Lab 01/18/20 11:17 Completed LIPASE Stat Lab 01/18/20 11:17 Completed MAGNESIUM Stat Lab 01/18/20 11:17 Completed TROPONIN Q3H Lab 01/18/20 11:17 Completed TROPONIN Q3H Lab 01/18/20 14:15 Ordered TROPONIN Q3H Lab 01/18/20 17:15 Ordered TROPONIN Q3H Lab 01/18/20 20:15 Ordered TROPONIN Q3H Lab 01/18/20 23:15 Ordered TSH, 3RD Generation Stat Lab 01/18/20 11:17 Completed UA W/RFX UR CULTURE Stat Lab 01/18/20 11:08 Uncollected Lab/Rad Data: Laboratory Result Diagrams 01/18/20 11:17 01/18/20 11:17 Laboratory Results 01/18/20 01/18/20 01/18/20 Range/Units 11:17 11:17 11:17 WBC (4.0-10.5) K/mm3 RBC (4.1-5.6) M/mm3 Hgb (12.5-18.0) gm/dl Hct (42-50) % MCV (78-100) fl MCH (26-32) pg MCHC (32-36) g/dl RDW (11.5-14.0) % Plt Count (150-450) K/mm3 MPV (7.5-11.0) fl Gran % (36.0-66.0) % Eos # (Auto) (0-0.5) Absolute Lymphs (auto) (1.0-4.6) Absolute Monos (auto) (0.0-1.3) Lymphocytes % (24.0-44.0) % Monocytes % (0.0-12.0) % Eosinophils % (0.00-5.0) % Basophils % (0.0-0.4) % Absolute Granulocytes (1.4-6.9) Basophils # (0-0.4) Sodium 139 (137-145) mmol/L Potassium 4.2 (3.5-5.1) mmol/L Chloride 101 (98-107) mmol/L Carbon Dioxide 32 H (22-30) mmol/L Anion Gap 10.0 (5-15) MEQ/L BUN 17 (9-20) mg/dL Creatinine 0.75 (0.66-1.25) mg/dL Estimated GFR > 60.0 ML/MIN Glucose 117 H (74-106) mg/dL Calcium 9.1 (8.4-10.2) mg/dL Magnesium 1.7 (1.6-2.3) mg/dL Total Bilirubin 0.50 (0.2-1.3) mg/dL AST 43 (17-59) U/L ALT 30 (0-50) U/L Alkaline Phosphatase 82 (38-126) U/L Troponin I < 0.012 (0.000-0.034) ng/mL Serum Total Protein 7.9 (6.3-8.2) g/dL Albumin 3.8 (3.5-5.0) g/dL Lipase 132 (23-300) U/L TSH 3rd Generation 4.520 (0.47-4.68) mIU/L 01/18/20 Range/Units 11:17 WBC 7.6 (4.0-10.5) K/mm3 RBC 3.64 L (4.1-5.6) M/mm3 Hgb 12.6 (12.5-18.0) gm/dl Hct 37.9 L (42-50) % MCV 104.1 H (78-100) fl MCH 34.6 H (26-32) pg MCHC 33.2 (32-36) g/dl RDW 16.6 H (11.5-14.0) % Plt Count 216 (150-450) K/mm3 MPV 11.2 H (7.5-11.0) fl Gran % 42.2 (36.0-66.0) % Eos # (Auto) 0.34 (0-0.5) Absolute Lymphs (auto) 2.68 (1.0-4.6) Absolute Monos (auto) 1.33 H (0.0-1.3) Lymphocytes % 35.3 (24.0-44.0) % Monocytes % 17.5 H (0.0-12.0) % Eosinophils % 4.5 (0.00-5.0) % Basophils % 0.5 (0.0-0.4) % Absolute Granulocytes 3.21 (1.4-6.9) Basophils # 0.04 (0-0.4) Sodium (137-145) mmol/L Potassium (3.5-5.1) mmol/L Chloride (98-107) mmol/L Carbon Dioxide (22-30) mmol/L Anion Gap (5-15) MEQ/L BUN (9-20) mg/dL Creatinine (0.66-1.25) mg/dL Estimated GFR ML/MIN Glucose (74-106) mg/dL Calcium (8.4-10.2) mg/dL Magnesium (1.6-2.3) mg/dL Total Bilirubin (0.2-1.3) mg/dL AST (17-59) U/L ALT (0-50) U/L Alkaline Phosphatase (38-126) U/L Troponin I (0.000-0.034) ng/mL Serum Total Protein (6.3-8.2) g/dL Albumin (3.5-5.0) g/dL Lipase (23-300) U/L TSH 3rd Generation (0.47-4.68) mIU/L - Progress Progress: improved Progress Note: 01/18/20 13:02 Patient reassessed. He feels well. Patient has no complaints. Patient denies pain. Work-up essentially nonremarkable. No indication for further testing at this time. We will discharge patient home. Plan of care discussed with patient, patient's brother (STEFAN) who is at the bedside as well as caregiver. They were updated on the findings and plan of care. Patient requesting discharge. They agree to follow-up with patient's primary care doctor within 48 hours for reevaluation. Counseled pt/family regarding: lab results, diagnosis, need for follow-up, rad results - Departure Departure Disposition: Home Clinical Impression: Encounter for medical screening examination Condition: Stable Critical Care Time: No Referrals: RESCARE,RESCARE [Primary Care Provider] - Additional Instructions: Discharge/Care Plan ARYAN LEE was seen on 01/18/20 in the Emergency Room. The patient was counseled regarding Diagnosis,Lab results, Imaging studies, need for follow up and when to return to the Emergency Room. Prescriptions given: Discharge Note I have spoken with the patient and/or caregivers. I have explained the patient's condition, diagnosis and treatment plan based on the information available to me at this time. I have answered the patient's and/or caregiver's questions and addressed any concerns. The patient and/or caregivers have as good understanding of the patient's diagnosis, condition and treatment plan as can be expected at this point. The vital signs have been stable. The patient's condition is stable and appropriate for discharge from the emergency department. The patient will pursue further outpatient evaluation with the primary care physician or other designated or consulting physician as outlined in the discharge instructions. The patient and/or caregivers are agreeable to this plan of care and follow-up instructions have been explained in detail. The patient and/or caregivers have received these instruction. The patient/and or caregivers are aware that any significant change in condition or worsening of symptoms should prompt an immediate return to this or the closest emergency department or call 911.
--- NOTE | 2020-01-18 12:31 | XRAY ---
Indication: Aspiration. Comparison: January 15, 2020. Portable chest again demonstrates left hemidiaphragm elevation with left base infiltrate/atelectasis unchanged. Heart is not enlarged with stable left dual-lead pacemaker. No new cardiopulmonary abnormalities.
[2020-01-18 13:06] VITALS: BP 119/72; PULSE 69
== END 2020-01-18 13:37 | disposition home or self-care (01) ==
LOC: ED 11:05
DX: Z13.9 Encounter for screening, unspecified (principal); Z79.899 Other long term (current) drug therapy
CPT/HCPCS: 36415; 71045; 80053; 83690; 83735; 84443; 84484; 85025; 93005; 93041; 94760; 99284

== ENCOUNTER 2020-01-25 13:09 | Emergency (ER) | payer MEDICAID ==
[2020-01-25] MEDS ORDERED: Sodium Chloride 0.9% 1000 ML 1,000 ML IV SCH (13:15)
[2020-01-25] MEDS ORDERED: Sodium Chloride 0.9% 1000 ML 1,000 ML ONE (13:25)
[2020-01-25 13:34] LABS: Absolute Neutrophil Ct (ANC) 3.99 (1.4-6.9); BASOPHIL % 0.3 % (0.0-0.4); Basophil (Absolute #) 0.02 (0-0.4); Eosinophil % 3.3 % (0.00-5.0); Eosinophil (Absolute #) 0.22 (0-0.5); Hematocrit 38.2 % (42-50); Hemoglobin 12.6 gm/dl (12.5-18.0); Lymphocytes % 24.2 % (24.0-44.0); Mean Cell Volume 104.7 fl (78-100); Mean Corpuscular Hemoglobin 34.5 pg (26-32); Mean Platelet Volume 11.5 fl (7.5-11.0); Monocyte (Absolute #) 0.78 (0.0-1.3); Monocytes % 11.8 % (0.0-12.0); Neutrophil % 60.4 % (36.0-66.0); Platelet Count 209 K/mm3 (150-450); Red Blood Count 3.65 M/mm3 (4.1-5.6); Red Cell Distribution Width 16.2 % (11.5-14.0); White Blood Count 6.6 K/mm3 (4.0-10.5)
[2020-01-25 13:48] LABS: ALBUMIN 3.8 g/dL (3.5-5.0); ALKALINE PHOSPHATASE 81 U/L (38-126); ANION GAP 13.3 MEQ/L (5-15); BLOOD UREA NITROGEN 19 mg/dL (9-20); CHLORIDE 98 mmol/L (98-107); Calcium 9.1 mg/dL (8.4-10.2); Carbon Dioxide 29 mmol/L (22-30); EST GLOMERULAR FILTRATION RATE > 60.0 ML/MIN; Glucose 94 mg/dL (74-106); MAGNESIUM 1.7 mg/dL (1.6-2.3); Potassium 5.1 mmol/L (3.5-5.1); SGOT/AST 43 U/L (17-59); SGPT/ALT 30 U/L (0-50); SODIUM 135 mmol/L (137-145); Total Protein 7.9 g/dL (6.3-8.2)
--- NOTE | 2020-01-25 14:14 | XRAY ---
Exam: AP portable chest film from 01/25/2020. Comparison: AP portable chest film from 01/18/2020 and 01/15/2020, and CT of the chest with IV contrast from 01/15/2020. Indication: Pneumonia, unwitnessed fall, possibly struck head, history of prior surgery. Findings: The patient is again noted to be rotated toward the left. The heart size remains normal. A left-sided cardiac pacemaker is noted with [address], one lead tip in the projection of the right atrium and the other lead tip in the projection of the apex of the right ventricle. This is unchanged. Metallic wires are seen overlying the left upper and mid chest representing no change. The left hemidiaphragm remains minimally elevated. Prior focal atelectasis/infiltrate at the medial left lung base behind the heart appears to have at least partially cleared compared to 01/18/2020. No new adverse lung findings are seen. The central pulmonary vessels are not congested. A few scattered bilateral calcified granulomas are seen. There is no pneumothorax or significant pleural effusion. Some chronic rib cage deformity is seen on the left representing no change. Impression: 1. Prior focal infiltrate/atelectasis at the medial left lung base behind the heart has at least partially cleared representing improvement from 01/18/2020. 2. No other acute cardiopulmonary disease is seen. 3. Some scattered small bilateral calcified granulomas, left-sided cardiac pacemaker with left-sided metallic wires, and chronic left rib cage deformity are again seen.
--- NOTE | 2020-01-25 15:05 | XRAY ---
Exam: CT of the head without IV contrast from 01/25/2020. CTDI: 53.92 mGy Comparison: CT of the head without IV contrast from 01/15/2020. Indication: 54-year-old male with fall/trauma to head, patient has history of prior "head surgery" in 1980s. Unable to obtain further information from the patient. Technique: Non-IV contrast axial images were obtained through the brain. Reconstructed coronal and sagittal images were created and reviewed. Findings: I again see at least moderate enlargement of the lateral ventricles, particularly the frontal horns and the temporal horn of the right lateral ventricle. The third ventricle is also moderately enlarged. The fourth ventricle appears of unremarkable size. These findings are unchanged. There is only mild cortical prominence peripheral to this. These findings are concerning for noncommunicating, or obstructive hydrocephalus. Correlate clinically. I see no focal mass effect or midline shift. No acute intracranial bleed or abnormal extra-axial fluid collection is seen. Mild periventricular degenerative microischemia is seen adjacent to the frontal horns, left greater than right. This is unchanged. A discrete low attenuation cortical infarct within a major cerebral or cerebellar artery distribution is not seen. The cortical sulci appear unremarkable for age. The calvarium of the skull appears intact. I believe there is a carolyn hole on the right representing no change (see axial image #38). The paranasal sinuses appear essentially clear except for perhaps minimal mucoperiosteal thickening within the left ethmoid sinus. No air-fluid levels are seen. Extensive cerumen is seen within the left external auditory canal. The mastoid air cells appear unremarkable without effusion. Impression: 1. I again see enlargement of the lateral and third ventricles out of proportion with respect to the fourth ventricle and cortical sulci which is suspicious for noncommunicating, or obstructive hydrocephalus. Correlate clinically. 2. No acute intracranial bleed or other acute intracranial process is seen. 3. There appears to be some mild chronic microvascular ischemic changes adjacent to the frontal horns of the lateral ventricles, left slightly greater than right. This is unchanged. A new cortical infarct is not seen. 4. There appears to be a carolyn hole on the right. No fracture of the calvarium of the skull is seen.
--- NOTE | 2020-01-25 15:14 | ERPHSYRPT ---
- History of Present Illness Time Seen by Provider: 01/25/20 13:18 Source: patient Exam Limitations: other (MR) Patient Subjective Stated Complaint: Fall Triage Nursing Assessment: Patient brought into ED via EMS and transferred to bed with assist of 2. Patient alert to name only. Patient has hx of TBI. Patient resides in [facility]. EMS stated patient was put in restroom per res care staff and left in restroom. caregivers homecare stated she heard patient yell and came in to find him between the toilet and sink sitting on his butt. Staff states she t hinks he hit his head and had a seizure, but fall was unwitnessed. Patient able to VAZQUEZ well. Physician History: Patient is a 54-year-old male who resides in a [facility] presents to our ED for a evaluation. Patient has a history of TBI. Patient was reportedly in the restroom alone. Patient was found by staff lying between the toilet and the sink. Patient's fall was unwitnessed. Patient has a history of seizures however no seizure was observed today. Patient states he may have hit his head. Patient otherwise has no complaints. No chest pain no shortness of breath. No nausea or vomiting. Patient's neurologic status is reportedly at his baseline. Patient was sent to our ED for screening exam. ED staff voiced no other complaints. HPI limited due to chronic mental status. Timing/Duration: today Severity: mild Modifying Factors: Improves With: nothing Associated Symptoms: No nausea, No vomiting, No abdominal pain, No shortness of breath, No chest pain, No fever, No headaches, No loss of appetite, No malaise, No rash, No syncope, No weakness Allergies/Adverse Reactions: No Known Drug Allergies Allergy (Verified 01/25/20 13:11) Home Medications: Fluoxetine HCl 10 mg [Prozac 10 mg] 10 mg PO DAILY 01/06/18 [History] Docusate Sodium 100 mg [Colace 100 MG] 100 mg PO BID 01/20/18 [History] ARIPiprazole [Aripiprazole Odt] 1 tab PO DAILY 12/14/19 [History] Benztropine Mesylate 1 tab PO DAILY 12/14/19 [History] Levothyroxine Sodium 75 Mcg [Synthroid 75 Mcg] 1 tab PO DAILY 12/14/19 [History] Omeprazole 1 tab PO BID 12/14/19 [History] Potassium Chloride 1 tab PO DAILY 12/14/19 [History] Cefpodoxime Proxetil 200 mg [Vantin 200 mg] 200 mg PO BID 01/15/20 [History] Oxcarbazepine 300 mg [Trileptal 300 MG Tablet] 150 mg PO DAILY 01/15/20 [History] Hx Tetanus, Diphtheria Vaccination/Date Given: Yes Hx Influenza Vaccination/Date Given: No Hx Pneumococcal Vaccination/Date Given: No Immunizations Up to Date: Yes Travel Risk - International Travel Have you traveled outside of the country in past 3 weeks: No - Coronavirus Screening Close contact with a COVID-19 positive Pt in past 14-21 Days: No - Review of Systems All Other Systems: Unable due to condition - Past Medical History Pertinent Past Medical History: Yes Neurological History: Dementia, Seizures ENT History: No Pertinent History Cardiac History: Hypertension Respiratory History: No Pertinent History Endocrine Medical History: Hypothyroidism Musculoskeletal History: No Pertinent History GI Medical History: GERD History: No Pertinent History Psycho-Social History: Depression, Other Male Reproductive Disorders: No Pertinent History Other Medical History: TBI from [facility] - Past Surgical History Past Surgical History: Yes (unknown/no history on transfer) Neuro Surgical History: No Pertinent History Cardiac: No Pertinent History Respiratory: No Pertinent History Gastrointestinal: Appendectomy, Cholecystectomy, Hemorrhoidectomy Genitourinary: No Pertinent History Musculoskeletal: No Pertinent History Male Surgical History: No Pertinent History Other Surgical History: caregiver states she doesn't know what surgeries he's had. IN - HAD JOCELYNN, APPY, AND HEMORROIDECTOMY - Social History Smoking Status: Never smoker How long have you smoked: years Exposure to second hand smoke: No Alcohol Use: None Drug Use: none Patient Lives Alone: Yes ([facility]) Significant Family History: no pertinent family hx - Nursing Vital Signs Nursing Vital Signs: Initial Vital Signs Temperature 98.0 F 01/25/20 13:12 Pulse Rate 65 01/25/20 13:12 Respiratory Rate 18 01/25/20 13:12 Blood Pressure 130/78 01/25/20 13:12 O2 Sat by Pulse Oximetry 96 01/25/20 13:12 Pain Scale Pain Intensity 0 - Physical Exam General Appearance: no apparent distress, alert Eye Exam: PERRL/EOMI, eyes nml inspection Ears, Nose, Throat Exam: normal ENT inspection, TMs normal, pharynx normal, moist mucous membranes Neck Exam: normal inspection, non-tender, supple, full range of motion Respiratory Exam: normal breath sounds, lungs clear, No respiratory distress Cardiovascular Exam: regular rate/rhythm, normal heart sounds, normal peripheral pulses Gastrointestinal/Abdomen Exam: soft, normal bowel sounds, No tenderness, No mass Back Exam: normal inspection, normal range of motion, No CVA tenderness, No vertebral tenderness Extremity Exam: normal inspection, normal range of motion, pelvis stable Neurologic Exam: alert, oriented x 3, cooperative, normal mood/affect, nml cerebellar function, nml station & gait, sensation nml, No motor deficits Skin Exam: normal color, warm, dry, No rash Lymphatic Exam: No adenopathy SpO2 Interpretation: normal SpO2: 97 O2 Delivery: Room Air - Course Nursing assessment & vital signs reviewed: Yes EKG Interpreted by Me: RATE (70), Sinus Rhythm, NORMAL AXIS, NORMAL INTERVALS - Radiology Exams Chest X-ray Interpretation: Teleradiologist Report (Lung granuloma otherwise no acute pathology observed.) - CT Exams Head CT Interpretation: Tele-radiologist Report (Noncommunicating hydrocephalus or obstructive hydrocephalus) Ordered Tests: Active Orders 24 hr Category Date Time Status Auriculotherapist STAT Care 01/25/20 13:12 Active EKG-ER Only STAT Care 01/25/20 13:11 Active IV Insertion STAT Care 01/25/20 13:11 Active Pulse Oximetry (ED) STAT Care 01/25/20 13:11 Active CHEST 1 VIEW (PORTABLE) Stat Exams 01/25/20 13:12 Completed HEAD WITHOUT CONTRAST [CT] Stat Exams 01/25/20 13:14 Completed CBC W DIFF Stat Lab 01/25/20 13:11 Completed CMP Stat Lab 01/25/20 13:30 Completed MAGNESIUM Stat Lab 01/25/20 13:30 Completed TROPONIN Q3H Lab 01/25/20 13:30 Completed TROPONIN Q3H Lab 01/25/20 16:03 Completed TROPONIN Q3H Lab 01/25/20 19:15 Ordered TROPONIN Q3H Lab 01/25/20 22:15 Ordered TROPONIN Q3H Lab 01/26/20 01:15 Ordered UA W/RFX UR CULTURE Stat Lab 01/25/20 13:12 Uncollected Medication Summary Generic Name Dose Route Start Last Admin Trade Name Ellis PRN Reason Stop Dose Admin Sodium Chloride 1,000 mls @ 100 mls/hr 01/25/20 13:15 01/25/20 13:26 Sodium Chloride 0.9% 1000 Ml IV 02/24/20 13:14 100 mls/hr .Q10H RIMMA Administration Discontinued Medications Generic Name Dose Route Start Last Admin Trade Name Ellis PRN Reason Stop Dose Admin Lorazepam 2 mg 01/25/20 16:26 Ativan 2 Mg/1 Ml Vial IV 01/25/20 16:27 STAT ONE Lorazepam Confirm 01/25/20 16:27 Ativan 2 Mg/1 Ml Vial Administered 01/25/20 16:28 Dose 2 mg .ROUTE .[facility] Lab/Rad Data: Laboratory Result Diagrams 01/25/20 13:11 01/25/20 13:30 Laboratory Results 01/25/20 01/25/20 01/25/20 Range/Units 16:03 13:30 13:30 WBC (4.0-10.5) K/mm3 RBC (4.1-5.6) M/mm3 Hgb (12.5-18.0) gm/dl Hct (42-50) % MCV (78-100) fl MCH (26-32) pg MCHC (32-36) g/dl RDW (11.5-14.0) % Plt Count (150-450) K/mm3 MPV (7.5-11.0) fl Gran % (36.0-66.0) % Eos # (Auto) (0-0.5) Absolute Lymphs (auto) (1.0-4.6) Absolute Monos (auto) (0.0-1.3) Lymphocytes % (24.0-44.0) % Monocytes % (0.0-12.0) % Eosinophils % (0.00-5.0) % Basophils % (0.0-0.4) % Absolute Granulocytes (1.4-6.9) Basophils # (0-0.4) Sodium 135 L (137-145) mmol/L Potassium 5.1 (3.5-5.1) mmol/L Chloride 98 (98-107) mmol/L Carbon Dioxide 29 (22-30) mmol/L Anion Gap 13.3 (5-15) MEQ/L BUN 19 (9-20) mg/dL Creatinine 0.70 (0.66-1.25) mg/dL Estimated GFR > 60.0 ML/MIN Glucose 94 (74-106) mg/dL Calcium 9.1 (8.4-10.2) mg/dL Magnesium 1.7 (1.6-2.3) mg/dL Total Bilirubin 0.50 (0.2-1.3) mg/dL AST 43 (17-59) U/L ALT 30 (0-50) U/L Alkaline Phosphatase 81 (38-126) U/L Troponin I < 0.012 < 0.012 (0.000-0.034) ng/mL Serum Total Protein 7.9 (6.3-8.2) g/dL Albumin 3.8 (3.5-5.0) g/dL 01/25/20 Range/Units 13:11 WBC 6.6 (4.0-10.5) K/mm3 RBC 3.65 L (4.1-5.6) M/mm3 Hgb 12.6 (12.5-18.0) gm/dl Hct 38.2 L (42-50) % MCV 104.7 H (78-100) fl MCH 34.5 H (26-32) pg MCHC 33.0 (32-36) g/dl RDW 16.2 H (11.5-14.0) % Plt Count 209 (150-450) K/mm3 MPV 11.5 H (7.5-11.0) fl Gran % 60.4 (36.0-66.0) % Eos # (Auto) 0.22 (0-0.5) Absolute Lymphs (auto) 1.60 (1.0-4.6) Absolute Monos (auto) 0.78 (0.0-1.3) Lymphocytes % 24.2 (24.0-44.0) % Monocytes % 11.8 (0.0-12.0) % Eosinophils % 3.3 (0.00-5.0) % Basophils % 0.3 (0.0-0.4) % Absolute Granulocytes 3.99 (1.4-6.9) Basophils # 0.02 (0-0.4) Sodium (137-145) mmol/L Potassium (3.5-5.1) mmol/L Chloride (98-107) mmol/L Carbon Dioxide (22-30) mmol/L Anion Gap (5-15) MEQ/L BUN (9-20) mg/dL Creatinine (0.66-1.25) mg/dL Estimated GFR ML/MIN Glucose (74-106) mg/dL Calcium (8.4-10.2) mg/dL Magnesium (1.6-2.3) mg/dL Total Bilirubin (0.2-1.3) mg/dL AST (17-59) U/L ALT (0-50) U/L Alkaline Phosphatase (38-126) U/L Troponin I (0.000-0.034) ng/mL Serum Total Protein (6.3-8.2) g/dL Albumin (3.5-5.0) g/dL - Progress Progress: improved Progress Note: 01/25/20 16:59 Patient reassessed. He is well. While in our ED patient was observed to have a generalized seizure. Patient received 2 mg of Ativan. Case discussed with of neurosurgery at [facility]. Dr. Weathers internal medicine accepts transfer. Plan of care discussed with caregivers. They agree to transfer to [facility] for further evaluation and treatment. Counseled pt/family regarding: lab results, diagnosis, rad results - Departure Clinical Impression: Fall, Lung granuloma, Hydrocephalus, Seizure Condition: Stable Critical Care Time: No Referrals: RESCARE,RESCARE [Primary Care Provider] -
[2020-01-25] MEDS ORDERED: Ativan 2 MG/1 ML VIAL IV ONE (16:26)
[2020-01-25] MEDS ORDERED: Ativan 2 MG/1 ML VIAL ONE (16:27)
[2020-01-25 17:38] VITALS: PULSE 60
[2020-01-25 18:08] VITALS: BP 105/67; O2SAT 95
== END 2020-01-25 18:28 | disposition short-term general hospital (02) ==
LOC: ED 13:09
DX: R56.9 Unspecified convulsions (principal); W19.XXXA Unspecified fall, initial encounter; J84.10 Pulmonary fibrosis, unspecified; G91.9 Hydrocephalus, unspecified; Z87.820 Personal history of traumatic brain injury
CPT/HCPCS: 36000; 36415; 70450; 71045; 80053; 83735; 84484; 85025; 93005; 93041; 94760; 96374; 99285; J2060

== ENCOUNTER 2021-01-30 11:38 | Observation (INO) | payer MEDICAID ==
[2021-01-30 13:53] LABS: Hematocrit 40.3 % (42-50); Hemoglobin 13.6 gm/dl (12.5-18.0); Mean Corpuscular Hemoglobin 34.1 pg (26-32); Mean Corpuscular Hgb Concent. 33.7 g/dl (32-36); Mean Platelet Volume 10.9 fl (7.5-11.0); Platelet Count 202 K/mm3 (150-450); Red Blood Count 3.99 M/mm3 (4.1-5.6); Red Cell Distribution Width 16.1 % (11.5-14.0); White Blood Count 6.3 K/mm3 (4.0-10.5)
[2021-01-30 14:15] LABS: ANION GAP 12.5 MEQ/L (5-15); BLOOD UREA NITROGEN 26 mg/dL (9-20); CHLORIDE 105 mmol/L (98-107); Calcium 8.8 mg/dL (8.4-10.2); Carbon Dioxide 31 mmol/L (22-30); Creatinine 1 0.83 mg/dL (0.66-1.25); EST GLOMERULAR FILTRATION RATE > 60.0 ML/MIN; Glucose 110 mg/dL (74-106); Potassium 4.4 mmol/L (3.5-5.1); SODIUM 144 mmol/L (137-145)
[2021-01-30] MEDS: Sodium Chloride 0.9% 1000 ML 1,000 ML IV SCH ×2 (14:28→22:40)
[2021-01-30] MEDS: CEFAZOLIN 2 GM-D5W BAG** 2 GM/50 ML ML IV SCH ×2 (14:28→18:04)
[2021-01-30] MEDS: ENOXAPARIN SODIUM SQ SCH (14:29)
[2021-01-30] MEDS ORDERED: NON-FORMULARY ITEM (Acetaminophen [Tylenol] 650 MG) PO PRN (14:47)
[2021-01-30] MEDS ORDERED: NON-FORMULARY ITEM (Ondansetron Hcl [Zofran] 4 MG) PO PRN (14:47)
[2021-01-30] MEDS ORDERED: TYLENOL 325 MG PO PRN (14:51)
[2021-01-30] MEDS ORDERED: ZOFRAN ODT 4 MG PO PRN (14:54)
--- NOTE | 2021-01-30 15:22 | XRAY ---
Indication: Left leg pain and swelling. Two-dimensional sonogram and color Doppler imaging of the major venous vessels of the left leg performed. Comparison: None No thrombus seen in the examined deep venous vessels of the left leg including greater saphenous vein. Veins demonstrate normal compressibility. Venous waveforms are normal with and without augmentation. Impression: Left leg negative for DVT.
[2021-01-30 16:01] LABS: Slide Review YES
[2021-01-30] MEDS: Colace 100 MG PO SCH (21:20)
[2021-01-30] MEDS: Protonix 40MG Tablet PO SCH (21:20)
[2021-01-30] MEDS ORDERED: Trileptal 300 MG Tablet PO SCH (22:00)
[2021-01-30] MEDS ORDERED: NON-FORMULARY ITEM (Omeprazole [Omeprazole] 1 TAB) PO SCH (22:00)
[2021-01-31] MEDS: CEFAZOLIN 2 GM-D5W BAG** 2 GM/50 ML ML IV SCH ×2 (01:14→06:26)
[2021-01-31 04:59] VITALS: O2SAT 97
[2021-01-31 05:31] LABS: Hemoglobin 12.6 gm/dl (12.5-18.0); Mean Cell Volume 102.9 fl (78-100); Mean Corpuscular Hemoglobin 33.2 pg (26-32); Mean Corpuscular Hgb Concent. 32.3 g/dl (32-36); Mean Platelet Volume 11.7 fl (7.5-11.0); Platelet Count 209 K/mm3 (150-450); Red Blood Count 3.79 M/mm3 (4.1-5.6); Red Cell Distribution Width 16.2 % (11.5-14.0); White Blood Count 6.9 K/mm3 (4.0-10.5)
[2021-01-31 05:44] LABS: ANION GAP 8.7 MEQ/L (5-15); BLOOD UREA NITROGEN 22 mg/dL (9-20); CHLORIDE 106 mmol/L (98-107); Calcium 8.4 mg/dL (8.4-10.2); Carbon Dioxide 32 mmol/L (22-30); Creatinine 1 0.83 mg/dL (0.66-1.25); EST GLOMERULAR FILTRATION RATE > 60.0 ML/MIN; Glucose 145 mg/dL (74-106); Potassium 4.4 mmol/L (3.5-5.1); SODIUM 142 mmol/L (137-145)
[2021-01-31] MEDS: Sodium Chloride 0.9% 1000 ML 1,000 ML IV SCH (06:26)
[2021-01-31] MEDS: Colace 100 MG PO SCH (09:04)
[2021-01-31] MEDS: Protonix 40MG Tablet PO SCH (09:05)
[2021-01-31] MEDS: ENOXAPARIN SODIUM SQ SCH (09:06)
[2021-01-31 09:28] VITALS: BP 111/59; PULSE 73
--- NOTE | 2021-01-31 09:48 | XRAY ---
Indication: Right leg pain and swelling. Two-dimensional sonogram and color Doppler imaging of the major venous vessels of the right leg performed. Comparison: None No thrombus seen in the examined deep venous vessels of the right leg including greater saphenous vein. Veins demonstrate normal compressibility. Venous waveforms are normal with and without augmentation. Impression: Right leg negative for DVT.
[2021-01-31] MEDS ORDERED: Abilify 10 MG PO SCH (10:00)
[2021-01-31] MEDS ORDERED: SYNTHROID 75 MCG PO SCH (10:00)
[2021-01-31] MEDS ORDERED: PROZAC 10 MG PO SCH (10:00)
[2021-01-31] MEDS ORDERED: ARIPIPRAZOLE PO SCH (10:00)
[2021-01-31] MEDS ORDERED: COGENTIN 0.5 MG PO SCH (10:00)
--- NOTE | 2021-02-01 20:31 | PCM.SSS ---
History of Present Illness - Chief Complaint Chief Complaint: cellulitis Date: 01/31/21 History of Present Illness: is a 55 year old male. Pt. presented to office and found to have cellulitis of the right lower extremity with chronic venous stasis changes on bilateral lower extremities. Pt. had not had any fevers of note, he did note pain in the leg and with more swelling pt. was admitted for iv abx and further evaluation to rule out possible dvt. - Review of Systems Constitutional: No Fever, No Chills Eyes: No Symptoms Ears, Nose, & Throat: No Symptoms Respiratory: No Cough, No Short Of Breath Cardiac: Edema, No Chest Pain, No Syncope Abdominal/Gastrointestinal: No Abdominal Pain, No Nausea, No Vomiting, No Diarrhea Genitourinary Symptoms: No Dysuria Musculoskeletal: No Back Pain, No Neck Pain Skin: Cellulitis, No Rash Neurological: No Dizziness, No Focal Weakness, No Sensory Changes Psychological: No Symptoms Endocrine: No Symptoms Hematologic/Lymphatic: No Symptoms Immunological/Allergic: No Symptoms Medications & Allergies Home Medications: Home Medication List Fluoxetine HCl 10 mg [Prozac 10 mg] 10 mg PO DAILY 01/06/18 [History Confirmed 01/30/21] Docusate Sodium 100 mg [Colace 100 MG] 100 mg PO BID 01/20/18 [History Confirmed 01/30/21] ARIPiprazole [Aripiprazole Odt] 1 tab PO DAILY 12/14/19 [History Confirmed 01/30/21] Benztropine Mesylate 1 tab PO DAILY 12/14/19 [History Confirmed 01/30/21] Levothyroxine Sodium 75 Mcg [Synthroid 75 Mcg] 1 tab PO DAILY 12/14/19 [History Confirmed 01/30/21] Omeprazole 1 tab PO BID 12/14/19 [History Confirmed 01/30/21] Oxcarbazepine 300 mg [Trileptal 300 MG Tablet] 150 mg PO BID 01/15/20 [History Confirmed 01/30/21] Acetaminophen [Tylenol] 650 mg PO Q4HPRN PRN 01/30/21 [History Confirmed 01/30/21] Ondansetron HCl [Zofran] 4 mg PO Q4HPRN PRN 01/30/21 [History Confirmed 01/30/21] Smz/Tmp Ds Tablet [Bactrim Ds Tablet] 1 udtab PO BID 10 Days #20 tablet 01/31/21 [Rx] Allergies/Adverse Reactions: Allergies Allergy/AdvReac Type Severity Reaction Status Date / Time No Known Drug Allergies Allergy Verified 01/25/20 13:11 - Past Medical History Past Medical History: Yes Neurological History: Dementia, Seizures ENT History: No Pertinent History Cardiac History: Hypertension Respiratory History: No Pertinent History Endocrine Medical History: Hypothyroidism Musculoskelatal History: No Pertinent History GI Medical History: GERD History: No Pertinent History Pyscho-Social History: Depression, Other Male Reproductive Disorders: No Pertinent History Comment: TBI from [facility] - Past Surgical History Past Surgical History: Yes (unknown/no history on transfer) Neuro Surgical History: No Pertinent History Cardiac History: No Pertinent History Respiratory Surgery: No Pertinent History GI Surgical History: Appendectomy, Cholecystectomy, Hemorrhoidectomy Genitourinary Surgical Hx: No Pertinent History Musculskeletal Surgical Hx: No Pertinent History Male Surgical History: No Pertinent History Other Surgical History: caregiver states she doesn't know what surgeries he's haD HAD JOCELYNN, APPY, AND HEMORROIDECTOMY - Social History Smoking Status: Unknown if ever smoked How long have you smoked: years Exposure to second hand smoke: No Alcohol: None Drug Use: none Significant Family History: no pertinent family hx - Physical Exam General Appearance: no apparent distress, alert, other (history of traumatic brain injury, pt. 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, normal mood/affect, nml cerebellar function, nml station & gait, sensation nml, No motor deficits Eye Exam: PERRL/EOMI, eyes nml inspection Ears, Nose, Throat Exam: normal ENT inspection, TMs normal, pharynx normal, moist mucous membranes Neck Exam: normal inspection, non-tender, supple, full range of motion Respiratory Exam: normal breath sounds, lungs clear, No respiratory distress Cardiovascular Exam: regular rate/rhythm, normal heart sounds, normal peripheral pulses Gastrointestinal/Abdomen Exam: soft, normal bowel sounds, No tenderness, No mass Back Exam: normal inspection, normal range of motion, No CVA tenderness, No vertebral tenderness Extremity Exam: normal inspection, normal range of motion, pelvis stable, swelling Skin Exam: normal color, warm, dry, other (chronic venous stasis changes in both legs, but increased swelling and redness of the right lower leg), No rash Lymphatic Exam: No adenopathy Results - Radiology Impressions Radiology Exams & Impressions: Radiology Procedures Category Date Time Status VENOUS UNILAT/LIMITED EXTREMIT [US] Routine Exams 01/31/21 09:00 Completed Assessment/Plan (1) Cellulitis Status: Acute Qualifiers: Site of cellulitis: extremity Site of cellulitis of extremity: lower extremity Laterality: right Qualified Code(s): L03.115 - Cellulitis of right lower limb Assessment & Plan: admit for iv antibiotics, will also evaluate for possible DVT Code(s): L03.90 - CELLULITIS, UNSPECIFIED Hospital Summary - Hospital Course Hospital Course: Pt. was admitted lower extremities dopplers negative for DVT and pt. with normal wbc noted to have some less swelling the next morning it was felt the patient would tolerate outpatient treatment with po antibiotics - Vitals & Intake/Output Vital Signs: Vital Signs Temperature 97.6 F 01/31/21 08:00 Pulse Rate 73 01/31/21 08:00 Respiratory Rate 18 01/31/21 08:00 Blood Pressure 111/59 01/31/21 08:00 O2 Sat by Pulse Oximetry 97 01/31/21 08:00 Intake & Output: Intake & Output 01/30/21 01/31/21 02/01/21 02/02/21 11:59 11:59 11:59 11:59 Intake Total 2252 Balance 2252 Weight 98.5 kg - Lab Result Diagrams: 01/31/21 04:45 01/31/21 04:45 - Radiology Exams Ordered Rad Exams-Entire Visit: Radiology Procedures Category Date Time Status VENOUS UNILAT/LIMITED EXTREMIT [US] Routine Exams 01/31/21 09:00 Completed - Procedures and Test Procedures and Tests throughout Hospitalization: Therapy Orders & Screens 01/30/21 12:20 PT Eval & Treat ( Order) ONCE Reason for Eval:: wound care to foot lesion LLE Diagnosis: cellulitis 01/31/21 10:04 PT Eval & Treat ( Order) ONCE Reason for Eval:: PATIENT NEEDS NEW ASSISTIVE DEVICE Diagnosis: cellulitis - Discharge Discharge Date: 01/31/21 Disposition: Home, Self-Care Condition: Stable Prescriptions: New Smz/Tmp Ds Tablet [Bactrim Ds Tablet] 1 udtab PO BID 10 Days #20 tablet No Action Fluoxetine HCl 10 mg [Prozac 10 mg] 10 mg PO DAILY Docusate Sodium 100 mg [Colace 100 MG] 100 mg PO BID Omeprazole 1 tab PO BID Levothyroxine Sodium 75 Mcg [Synthroid 75 Mcg] 1 tab PO DAILY Benztropine Mesylate 1 tab PO DAILY ARIPiprazole [Aripiprazole Odt] 1 tab PO DAILY Oxcarbazepine 300 mg [Trileptal 300 MG Tablet] 150 mg PO BID Acetaminophen [Tylenol] 650 mg PO Q4HPRN PRN PRN Reason: Pain Ondansetron HCl [Zofran] 4 mg PO Q4HPRN PRN PRN Reason: Nausea Instructions: Cellulitis (Skin Infection), Adult (DC) Additional Instructions: BARRIER CREAM TO OUTSIDE OF RIGHT FOOT LIBERALLY TWICE A DAY Follow up with: INÉS SAUCEDO DPM [ACTIVE STAFF] - 02/04/21 1:00 pm JANNETTE RODRIGUEZ MD [Primary Care Provider] - 02/07/21 10:15 am
== END 2021-01-31 11:10 | disposition home or self-care (01) ==
LOC: MED SURG 11:38
PROVIDERS: ADMIT Family Medicine; ATTEND Family Medicine
DX: L03.115 Cellulitis of right lower limb (principal); M79.89 Other specified soft tissue disorders; I10 Essential (primary) hypertension; M79.605 Pain in left leg; M79.604 Pain in right leg; I87.8 Other specified disorders of veins; E03.9 Hypothyroidism, unspecified; Z20.822 Contact with and (suspected) exposure to COVID-19; Z79.899 Other long term (current) drug therapy
CPT/HCPCS: 36415; 80048; 85027; 93971; 97161; G0378; U0003; J0690; J1650; A9270-GY

== ENCOUNTER 2021-03-09 07:34 | Observation (INO) | payer MEDICAID ==
[2021-03-09] MEDS ORDERED: Sodium Chloride 0.9% 1000 ML 1,000 ML IV STA (07:40)
[2021-03-09] MEDS ORDERED: Sodium Chloride 0.9% 1000 ML 1,000 ML ONE (07:50)
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
[2021-03-09 08:00] LABS: Absolute Neutrophil Ct (ANC) 4.46 (1.4-6.9); BASOPHIL % 0.2 % (0.0-0.4); Basophil (Absolute #) 0.02 (0-0.4); Eosinophil % 2.4 % (0.00-5.0); Hematocrit 42.3 % (42-50); Hemoglobin 13.6 gm/dl (12.5-18.0); Lymphocyte (Absolute #) 2.55 (1.0-4.6); Lymphocytes % 30.1 % (24.0-44.0); Mean Cell Volume 103.9 fl (78-100); Mean Corpuscular Hemoglobin 33.4 pg (26-32); Mean Corpuscular Hgb Concent. 32.2 g/dl (32-36); Mean Platelet Volume 11.3 fl (7.5-11.0); Monocyte (Absolute #) 1.24 (0.0-1.3); Monocytes % 14.6 % (0.0-12.0); Neutrophil % 52.7 % (36.0-66.0); Platelet Count 201 K/mm3 (150-450); Red Blood Count 4.07 M/mm3 (4.1-5.6); Red Cell Distribution Width 16.4 % (11.5-14.0); White Blood Count 8.5 K/mm3 (4.0-10.5)
[2021-03-09 08:14] LABS: ALBUMIN 3.6 g/dL (3.5-5.0); ALKALINE PHOSPHATASE 106 U/L (38-126); ANION GAP 16.5 MEQ/L (5-15); BLOOD UREA NITROGEN 24 mg/dL (9-20); CHLORIDE 106 mmol/L (98-107); Calcium 9.1 mg/dL (8.4-10.2); Carbon Dioxide 27 mmol/L (22-30); Creatinine 1 0.76 mg/dL (0.66-1.25); EST GLOMERULAR FILTRATION RATE > 60.0 ML/MIN; Glucose 138 mg/dL (74-106); Potassium 3.6 mmol/L (3.5-5.1); SGOT/AST 218 U/L (17-59); SGPT/ALT 198 U/L (0-50); SODIUM 146 mmol/L (137-145); Total Protein 7.7 g/dL (6.3-8.2)
[2021-03-09] MEDS ORDERED: CEREBYX IV ONE (09:09)
[2021-03-09] MEDS ORDERED: SODIUM CHLORIDE 0.9% IV ONE (09:09)
[2021-03-09] MEDS ORDERED: Zofran 4 MG/2 ML VIAL IV PRN (09:12)
[2021-03-09] MEDS ORDERED: Dextrose 5%-1/2NS IV Soln. 500 ML 500 ML IV SCH (09:30)
[2021-03-09] MEDS ORDERED: DUONEB 0.5-3 MG/3 ml Neb IH ONE (09:34)
[2021-03-09] MEDS ORDERED: SODIUM CHLORIDE 0.9% IV SCH (10:00)
[2021-03-09] MEDS ORDERED: ROCEPHIN IV SCH (10:00)
[2021-03-09] MEDS ORDERED: Sodium Chloride 0.9% 100 ML BAG 0 ML ONE (10:29)
[2021-03-09] MEDS ORDERED: FOSPHENYTOIN SODIUM ONE (10:30)
[2021-03-09] MEDS ORDERED: DUONEB 0.5-3 MG/3 ml Neb IH SCH (11:00)
[2021-03-09] MEDS ORDERED: LOPERAMIDE HCL 2 MG PO PRN (13:33)
[2021-03-09] MEDS ORDERED: NON-FORMULARY ITEM (Acetaminophen [Tylenol] 325 MG Capsule) PO PRN (13:33)
[2021-03-09] MEDS ORDERED: MILK OF MAGNESIA 30 ML PO PRN (13:33)
[2021-03-09] MEDS ORDERED: MICONAZOLE NITRATE TP PRN (13:33)
[2021-03-09] MEDS ORDERED: DEXTROMETHORPHAN PO PRN (13:33)
[2021-03-09] MEDS ORDERED: [UNRECOGNIZED DRUG - OTHER] PO PRN (13:33)
[2021-03-09] MEDS ORDERED: GUAIFENESIN PO PRN (13:33)
[2021-03-09] MEDS ORDERED: MAALOX ES 30 ML UNIT DOSE PO PRN (13:33)
[2021-03-09] MEDS ORDERED: CHLORPHENIRAMINE MALEATE 4 MG PO PRN (13:33)
[2021-03-09] MEDS ORDERED: NON-FORMULARY ITEM (Ondansetron Hcl [Zofran] 4 MG Tablet) PO PRN (13:35)
[2021-03-09] MEDS ORDERED: IMODIUM 2 MG PO PRN (13:41)
[2021-03-09] MEDS ORDERED: ZOFRAN ODT 4 MG PO PRN (13:42)
[2021-03-09] MEDS ORDERED: TYLENOL 325 MG PO PRN (13:43)
[2021-03-09] MEDS ORDERED: Robitussin-Dm Syrup PO PRN (13:47)
[2021-03-09] MEDS: COGENTIN 0.5 MG PO SCH (14:46)
[2021-03-09] MEDS: Abilify 10 MG PO SCH (14:46)
[2021-03-09] MEDS: PROZAC 10 MG PO SCH (14:46)
[2021-03-09] MEDS: SYNTHROID 75 MCG PO SCH (14:47)
[2021-03-09] MEDS: Protonix 40MG Tablet PO SCH (21:11)
[2021-03-09] MEDS: Colace 100 MG PO SCH (21:11)
[2021-03-09] MEDS: Trileptal 300 MG Tablet PO SCH (21:11)
[2021-03-09] MEDS: Dextrose 5% -0.45 NaCl 1000 ML 1,000 ML IV SCH (21:12)
[2021-03-09] MEDS ORDERED: NON-FORMULARY ITEM (Omeprazole [Omeprazole] 40 MG Capsule.Dr) PO SCH (22:00)
--- NOTE | 2021-03-09 22:05 | XRAY ---
Indication: Acute mental status change. Seizure. Multiple contiguous axial images obtained through the head without contrast. Comparison: January 25, 2020. There remains age-appropriate global atrophy, mild periventricular degenerative micro-ischemia, and enlargement of the lateral/third ventricles. No acute intracranial hemorrhage, abnormal extra-axial fluid collection, or mass effect. Fourth ventricle is midline. Bony calvarium remains intact. Visualized paranasal sinuses and mastoid air cells are clear. Impression: Continued nonacute senile brain with enlargement of the ventricles as detailed. Comment: Preliminary interpretation was made by [facility]. No critical discrepancy.
--- NOTE | 2021-03-09 22:08 | XRAY ---
Indication: Acute mental status change. Seizure. Comparison: January 25, 2020. Portable chest unchanged again with mild left hemidiaphragm elevation and minimal left base infiltrate/atelectasis. Remaining heart and right lung unremarkable again with incidental left pacemaker. Bony thorax intact again with mild degenerative changes. No new/acute findings.
[2021-03-10] MEDS ORDERED: Ativan 2 MG/1 ML VIAL ONE (04:11)
[2021-03-10] MEDS ORDERED: Ativan 2 MG/1 ML VIAL IV PRN (04:35)
[2021-03-10 05:49] LABS: ALBUMIN 3.2 g/dL (3.5-5.0); ALKALINE PHOSPHATASE 89 U/L (38-126); ANION GAP 13.3 MEQ/L (5-15); BLOOD UREA NITROGEN 16 mg/dL (9-20); CHLORIDE 107 mmol/L (98-107); Calcium 8.6 mg/dL (8.4-10.2); Carbon Dioxide 27 mmol/L (22-30); Creatinine 1 0.64 mg/dL (0.66-1.25); EST GLOMERULAR FILTRATION RATE > 60.0 ML/MIN; Glucose 103 mg/dL (74-106); Potassium 3.6 mmol/L (3.5-5.1); SGOT/AST 196 U/L (17-59); SGPT/ALT 185 U/L (0-50); SODIUM 144 mmol/L (137-145)
[2021-03-10] MEDS ORDERED: ARIPIPRAZOLE 10 MG PO SCH (10:00)
[2021-03-10] MEDS: Trileptal 300 MG Tablet PO SCH ×2 (10:22→21:35)
[2021-03-10] MEDS: Colace 100 MG PO SCH ×2 (12:16→21:35)
[2021-03-10] MEDS: SYNTHROID 75 MCG PO SCH (12:16)
[2021-03-10] MEDS: Abilify 10 MG PO SCH (12:16)
[2021-03-10] MEDS: Protonix 40MG Tablet PO SCH ×2 (12:16→21:35)
[2021-03-10] MEDS: COGENTIN 0.5 MG PO SCH (12:18)
[2021-03-10] MEDS: PROZAC 10 MG PO SCH (12:18)
--- NOTE | 2021-03-10 13:17 | PCM.HP ---
History of Present Illness - Chief Complaint Chief Complaint: seizure activity History of Present Illness: is a 55 year old male Hx TBI that lives at [facility]. Staff reports that ptn woke the day of admission confused and lethargic then had a tonic clonic seizure. Teleneuro has made recommendations and discussed them with me by phone.MRI of brain and If ptn has another seizure will give Keppra 1,000mg bolus then 500mg q 12 hour. Medications & Allergies Home Medications: Home Medication List Fluoxetine HCl 10 mg [Prozac 10 mg] 10 mg PO DAILY 01/06/18 [History Confirmed 03/09/21] Docusate Sodium 100 mg [Colace 100 MG] 100 mg PO BID 01/20/18 [History Confirmed 03/09/21] ARIPiprazole [Aripiprazole Odt] 1 tab PO DAILY 12/14/19 [History Confirmed 03/09/21] Benztropine Mesylate 1 tab PO DAILY 12/14/19 [History Confirmed 03/09/21] Levothyroxine Sodium 75 Mcg [Synthroid 75 Mcg] 1 tab PO DAILY 12/14/19 [History Confirmed 03/09/21] Omeprazole 1 tab PO BID 12/14/19 [History Confirmed 03/09/21] Oxcarbazepine 300 mg [Trileptal 300 MG Tablet] 300 mg PO BID 01/15/20 [History Confirmed 03/09/21] Acetaminophen [Tylenol] 650 mg PO Q4HPRN PRN 01/30/21 [History Confirmed 03/09/21] Ondansetron HCl [Zofran] 4 mg PO Q4HPRN PRN 01/30/21 [History Confirmed 03/09/21] Chlorpheniramine Maleate [Chlor-Trimeton] 4 mg PO Q8H PRN PRN 03/09/21 [History Confirmed 03/09/21] Guaifenesin/Dextromethorphan [Siltussin Dm Mendes 100-10Mg/5 ml] 10 ml PO Q6H PRN PRN 03/09/21 [History Confirmed 03/09/21] Loperamide HCl [Imodium A-D] 2 mg PO Q3H/PRN PRN 03/09/21 [History Confirmed 03/09/21] Mag Hydrox/Aluminum Hyd/Simeth [Gnp Antacid Anti-Gas Liquid] 30 ml PO AC PRN 03/09/21 [History Confirmed 03/09/21] Magnesium Hydroxide 30 ml [Milk of Magnesia 30 ml] 30 ml PO DAILY PRN PRN 03/09/21 [History Confirmed 03/09/21] Miconazole Nitrate [Micatin] 15 gm TP DAILY PRN PRN 03/09/21 [History Confirmed 03/09/21] Cephalexin Mh 500 mg [Keflex 500 mg] 500 mg PO TID 10 Days #30 03/12/21 [Rx] Allergies/Adverse Reactions: Allergies Allergy/AdvReac Type Severity Reaction Status Date / Time No Known Drug Allergies Allergy Verified 03/09/21 11:45 - Past Medical History Past Medical History: Yes Neurological History: Dementia, Seizures ENT History: No Pertinent History Cardiac History: Congenital Heart Disease, Hypertension Respiratory History: No Pertinent History Endocrine Medical History: Hypothyroidism Musculoskelatal History: No Pertinent History GI Medical History: GERD History: No Pertinent History Pyscho-Social History: Depression, Other Male Reproductive Disorders: No Pertinent History Comment: [facility] from [facility] - Past Surgical History Past Surgical History: Yes (unknown/no history on transfer) Neuro Surgical History: No Pertinent History Cardiac History: No Pertinent History, Pacemaker Respiratory Surgery: Tracheostomy GI Surgical History: Appendectomy, Cholecystectomy, Hemorrhoidectomy Genitourinary Surgical Hx: No Pertinent History Musculskeletal Surgical Hx: No Pertinent History Male Surgical History: No Pertinent History Other Surgical History: caregiver states she doesn't know what other surgeries he's haD HAD JOCELYNN, APPY, AND HEMORROIDECTOMY - Social History Smoking Status: Unknown if ever smoked How long have you smoked: years Exposure to second hand smoke: No Alcohol: None Drug Use: none Significant Family History: no pertinent family hx - Physical Exam Vital Signs: Vital Signs - 24 hr Temp Pulse Resp BP Pulse Ox 03/10/21 12:00 97.5 F 76 18 117/73 97 03/10/21 07:58 97.7 F 69 18 108/66 93 L 03/10/21 04:29 97.7 F 85 20 108/60 95 03/10/21 04:14 97.7 F 65 20 197/86 97 03/10/21 04:00 97.5 F 105 H 18 118/69 96 03/09/21 23:59 97.5 F 65 21 107/69 96 03/09/21 19:48 96.9 F 61 15 129/75 94 L 03/09/21 16:00 96.9 F 60 23 110/70 94 L General Appearance: no apparent distress Neurologic Exam: alert (oriented to person and place,could tell me about Hx TBI when and how it happened. Is flirting with the staff.), cooperative Eye Exam: eyes nml inspection Ears, Nose, Throat Exam: normal ENT inspection Neck Exam: normal inspection Respiratory Exam: normal breath sounds Cardiovascular Exam: regular rate/rhythm Gastrointestinal/Abdomen Exam: soft (nontender) Back Exam: normal inspection Skin Exam: normal color, warm, dry Results - Labs Lab/Micro Results: Lab Results-Last 24 Hours 03/10/21 Range/Units 05:10 Sodium 144 (137-145) mmol/L Potassium 3.6 (3.5-5.1) mmol/L Chloride 107 (98-107) mmol/L Carbon Dioxide 27 (22-30) mmol/L Anion Gap 13.3 (5-15) MEQ/L BUN 16 (9-20) mg/dL Creatinine 0.64 L (0.66-1.25) mg/dL Estimated GFR > 60.0 ML/MIN Glucose 103 (74-106) mg/dL Calcium 8.6 (8.4-10.2) mg/dL Total Bilirubin 0.80 (0.2-1.3) mg/dL AST 196 H (17-59) U/L ALT 185 H (0-50) U/L Alkaline Phosphatase 89 (38-126) U/L Serum Total Protein 7.0 (6.3-8.2) g/dL Albumin 3.2 L (3.5-5.0) g/dL - Radiology Impressions Radiology Exams & Impressions: Radiology Procedures Category Date Time Status CHEST 1 VIEW (PORTABLE) Stat Exams 03/09/21 08:19 Completed HEAD WITHOUT CONTRAST [CT] Stat Exams 03/09/21 07:42 Completed Assessment/Plan (1) Seizure Status: Acute Assessment & Plan: chronic since TBI with new seizure activity on half-way med Trileptal.See teleneuro consult. Code(s): R56.9 - UNSPECIFIED CONVULSIONS (2) History of traumatic brain injury Status: Acute Code(s): Z87.820 - PERSONAL HISTORY OF TRAUMATIC BRAIN INJURY (3) Elevated liver enzymes Status: Acute Assessment & Plan: check hepatits panel and Liver US Code(s): R74.8 - ABNORMAL LEVELS OF OTHER SERUM ENZYMES
--- NOTE | 2021-03-10 14:12 | XRAY ---
Indication: Wheezing. Comparison: One day earlier. PA/lateral chest unchanged again demonstrating mild left hemidiaphragm elevation with minimal left base infiltrate/atelectasis. Remaining lungs clear. Heart not enlarged again with left pacemaker. No new cardiopulmonary abnormalities.
[2021-03-10 15:34] LABS: Appearance CLOUDY (CLEAR); Bacteria PACKED /HPF (NEGATIVE); Bilirubin NEGATIVE (NEGATIVE); Blood SMALL Ery/ul (0-5); Glucose NEGATIVE (NEGATIVE); Ketones NEGATIVE (NEGATIVE); Leukocyte Esterase MODERATE (NEGATIVE); Mucus SLIGHT /HPF (NEGATIVE); Nitrite POSITIVE (NEGATIVE); Protein,Urine Dip 100 (Negative); Specific Gravity 1.016 (1.005-1.025); Urobilinogen 4 mg/dL (0-1); WBC >100 /HPF (0-5)
[2021-03-10 15:54] LABS: Amphetamine,Urine NEGATIVE (NEGATIVE); Barbiturate,Urine NEGATIVE (NEGATIVE); Benzodiazepine,Urine NEGATIVE (NEGATIVE); Cocaine,Urine NEGATIVE (NEGATIVE); Methadone,Urine NEGATIVE (NEGATIVE); Opiate,Urine NEGATIVE (NEGATIVE); PCP,Urine NEGATIVE (NEGATIVE); THC,Urine NEGATIVE (NEGATIVE)
[2021-03-10] MEDS: ROCEPHIN 1 Gm-D5w 50 ml Bag** 1 G/50 ML IVPB IV SCH (17:42)
[2021-03-11] MEDS: ROCEPHIN 1 Gm-D5w 50 ml Bag** 1 G/50 ML IVPB IV SCH (09:12)
[2021-03-11] MEDS: Colace 100 MG PO SCH ×2 (09:13→22:56)
[2021-03-11] MEDS: Abilify 10 MG PO SCH (09:13)
[2021-03-11] MEDS: SYNTHROID 75 MCG PO SCH (09:13)
[2021-03-11] MEDS: PROZAC 10 MG PO SCH (09:14)
[2021-03-11] MEDS: Protonix 40MG Tablet PO SCH ×2 (09:14→22:56)
[2021-03-11] MEDS: Trileptal 300 MG Tablet PO SCH ×2 (09:15→22:56)
[2021-03-11] MEDS: COGENTIN 0.5 MG PO SCH (09:15)
--- NOTE | 2021-03-11 10:45 | XRAY ---
Indication: Elevated liver function test. Cholecystectomy. Two-dimensional right upper quadrant abdominal sonogram performed. Comparison: None Pancreas obscured due to overlying bowel gas. Visualized liver homogeneous in echogenicity without hepatomegaly or ascites. Gallbladder surgically absent. Common bile duct measures 8.5 mm. No intrahepatic biliary distention. Right kidney measures 8.2 cm in length and sonographically unremarkable. Impression: Nonvisualization pancreas. Cholecystectomy. Remaining right upper quadrant sonogram is negative.
[2021-03-11] MEDS: Dextrose 5% -0.45 NaCl 1000 ML 1,000 ML IV SCH ×2 (21:37→21:38)
[2021-03-12] MEDS: Dextrose 5% -0.45 NaCl 1000 ML 1,000 ML IV SCH (05:59)
[2021-03-12] MEDS: SYNTHROID 75 MCG PO SCH (09:10)
[2021-03-12] MEDS: Colace 100 MG PO SCH (09:10)
[2021-03-12] MEDS: Protonix 40MG Tablet PO SCH (09:10)
[2021-03-12] MEDS: Abilify 10 MG PO SCH (09:10)
[2021-03-12] MEDS: COGENTIN 0.5 MG PO SCH (09:11)
[2021-03-12] MEDS: Trileptal 300 MG Tablet PO SCH (09:11)
[2021-03-12] MEDS: PROZAC 10 MG PO SCH (09:11)
[2021-03-12] MEDS: ROCEPHIN 1 Gm-D5w 50 ml Bag** 1 G/50 ML IVPB IV SCH (09:12)
--- NOTE | 2021-03-12 14:33 | XRAY ---
Indication: Seizure. CVA. Conventional contrast enhanced CTA neck performed using 80 cc Isovue 370 contrast. Two-dimensional sagittal and coronal reformatted images obtained. Additional 3D reformatted images obtained using a separate workstation. Comparison: None Visualized aortic arch demonstrates minimal calcifications with normal by the patent branching right brachiocephalic, left common carotid, and left subclavian arteries. Common carotid, carotid bulb, internal carotid, and external carotid arteries are bilaterally symmetric and normal in CTA appearance. Vertebral arteries are also bilaterally symmetric without critical stenosis, obstruction, or AV malformation. Visualized soft tissues demonstrates scattered centimeter/subcentimeter submandibular and cervical lymph nodes bilaterally. No pathologic lymphadenopathy. Parotid and submandibular glands are bilaterally symmetric. Supra and infraglottic airway are widely patent. Thyroid gland unremarkable. Cervical spine intact with multilevel bridging/nonbridging osteophytes. No acute fracture or suspicious bony lesions. Patient is edentulous. Lung apices are clear. Impression: 1. Normal CTA neck with contrast exam. 2. Incidental degenerative osteophytes throughout the cervical spine.
--- NOTE | 2021-03-12 14:35 | XRAY ---
Indication: Seizure. CVA. Conventional contrast enhanced CTA head performed using 80 cc Isovue 370 contrast. Two-dimensional sagittal and coronal reformatted images obtained. Additional 3D reformatted images obtained using a separate workstation. Comparison: None Distal internal carotid arteries are bilaterally symmetric without critical stenosis, dissection, or AV malformation. Normal carotid terminus with normal branching A1 and M1 segments bilaterally. More distal anterior cerebral and middle cerebral arteries are normal in CTA appearance. Posterior circulation demonstrates normal CTA appearance of the basilar artery, left/right posterior cerebral, left/right superior cerebellar, and left/right anterior inferior cerebellar arteries. Venous drainage/sinuses are unremarkable. No abnormal enhancing intra or extra-axial mass. Impression: Normal CTA head with contrast exam.
--- NOTE | 2021-03-12 14:41 | XRAY ---
Indication: Seizure. CVA. Multiple contiguous axial images obtained through the head without contrast. Comparison: March 09, 2021. Stable age-appropriate global atrophy, mild periventricular degenerative micro-ischemia, and enlargement of the lateral/third ventricles. Noncommunicating hydrocephalus not completely excluded in the right clinical setting. Again no acute intracranial hemorrhage, abnormal extra-axial fluid collection, or mass effect. Fourth ventricle is midline. Bony calvarium intact. Visualized paranasal sinuses and mastoid air cells are clear. Impression: Continued nonacute senile brain with enlargement of the ventricles as detailed.
[2021-03-12 15:15] LABS: HBsAg Screen Negative (Negative); Hep A Ab, IgM Negative (Negative); Hep B Core Ab, IgM Negative (Negative)
[2021-03-12 15:51] LABS: Hep C Virus Ab >11.0 s/co ratio (0.0-0.9); Homocyst(e)ine 8.2 umol/L (0.0-14.5)
[2021-03-12 16:23] VITALS: BP 126/67; PULSE 62; O2SAT 96
[2021-03-12 17:12] LABS: Hematocrit 38.7 % (37.5-51.0)
[2021-03-12 17:17] LABS: Folate, RBC 1070 ng/mL (>498)
[2021-03-14 19:11] LABS: Oxcarbazepine 8 ug/mL (10-35)
[2021-03-18 07:10] LABS: Zinc, Plasma or Serum 68 ug/dL (44-115)
== END 2021-03-12 17:03 | disposition home or self-care (01) ==
LOC: ED 07:34 → MED SURG 11:20
PROVIDERS: ADMIT Family Medicine; ATTEND Family Medicine
DX: G40.909 Epilepsy, unspecified, not intractable, without status epilepticus (principal); E87.0 Hyperosmolality and hypernatremia; E86.0 Dehydration; R94.5 Abnormal results of liver function studies; R41.0 Disorientation, unspecified; E03.9 Hypothyroidism, unspecified; I10 Essential (primary) hypertension; Z87.820 Personal history of traumatic brain injury; Z20.822 Contact with and (suspected) exposure to COVID-19
CPT/HCPCS: 36415; 70450; 70496; 70498; 71045; 71046; 76705; 80053; 80074; 80156; 80183; 80307; 81001; 82140; 82525; 82607; 82747; 83090; 84630; 85014; 85025; 87077; 87086; 87186; 87651; 93005; 93041; 93268; 94640; 94760; 99285; 99291; G0378; U0003; 83605; J0696; J2060; Q2009; A9270-GY

== ENCOUNTER 2021-10-31 12:39 | Emergency (ER) | payer MEDICAID ==
--- NOTE | 2021-10-31 12:43 | ERPHSYRPT ---
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 He denies chest pain and denies shortness of breath. Patient is not the best historian. He he has significant mental and memory issues following a traumatic brain injury several years ago. The director of the center is here and she stated no one witnessed him falling. However, she states he could have fallen. Patient has a history of dementia, depression, gastroesophageal reflux disease and seizure disorder. Occurred: this morning Method of Injury: unknown Quality: aching Severity of Pain-Max: mild Severity of Pain-Current: mild Extremities Pain Location: shoulder: bilateral Modifying Factors: Improves With: nothing Associated Symptoms: none Allergies/Adverse Reactions: No Known Drug Allergies Allergy (Verified 10/31/21 12:46) Home Medications: Fluoxetine HCl 10 mg [Prozac 10 mg] 10 mg PO DAILY 01/06/18 [History] Docusate Sodium 100 mg [Docusate Sodium 100 MG] 100 mg PO BID 01/20/18 [History] ARIPiprazole [Aripiprazole Odt] 1 tab PO DAILY 12/14/19 [History] Benztropine Mesylate 1 tab PO DAILY 12/14/19 [History] Levothyroxine Sodium 75 Mcg [Synthroid 75 Mcg] 1 tab PO DAILY 12/14/19 [History] Omeprazole 1 tab PO BID 12/14/19 [History] Oxcarbazepine 300 mg [Trileptal 300 MG Tablet] 300 mg PO BID 01/15/20 [History] Acetaminophen [Tylenol] 650 mg PO Q4HPRN PRN 01/30/21 [History] ondansetron HCL [Zofran] 4 mg PO Q4HPRN PRN 01/30/21 [History] Chlorpheniramine Maleate [Chlor-Trimeton] 4 mg PO Q8H PRN PRN 03/09/21 [History] Guaifenesin/Dextromethorphan [Siltussin Dm Mendes 100-10Mg/5 ml] 10 ml PO Q6H PRN PRN 03/09/21 [History] Loperamide HCl [Imodium A-D] 2 mg PO Q3H/PRN PRN 03/09/21 [History] Mag Hydrox/Aluminum Hyd/Simeth [Gnp Antacid Anti-Gas Liquid] 30 ml PO AC PRN 03/09/21 [History] Magnesium Hydroxide 30 ml [Milk of Magnesia 30 ml] 30 ml PO DAILY PRN PRN 03/09/21 [History] Miconazole Nitrate [Micatin] 15 gm TP DAILY PRN PRN 03/09/21 [History] Hx Tetanus, Diphtheria Vaccination/Date Given: Yes Hx Influenza Vaccination/Date Given: No Hx Pneumococcal Vaccination/Date Given: No Travel Risk - International Travel Have you traveled outside of the country in past 3 weeks: No - Coronavirus Screening Are you exhibiting any of the following symptoms?: No Close contact with a COVID-19 positive Pt in past 14-21 Days: No - Vaccine Status Have you recieved a Covid-19 vaccination: (UNKNOWN) - Vaccination Dates Comment: UNKNOWN - Review of Systems Constitutional: No Symptoms Eyes: No Symptoms Ears, Nose, & Throat: No Symptoms Respiratory: No Symptoms Cardiac: No Symptoms Abdominal/Gastrointestinal: No Symptoms Genitourinary Symptoms: No Symptoms Musculoskeletal: Joint Pain (Bilateral shoulders), No Fall, No Injury Skin: No Symptoms Neurological: No Symptoms Psychological: No Symptoms Endocrine: No Symptoms Hematologic/Lymphatic: No Symptoms Immunological/Allergic: No Symptoms All Other Systems: Reviewed and Negative - Past Medical History Pertinent Past Medical History: Yes Neurological History: Dementia, Seizures ENT History: No Pertinent History Cardiac History: Congenital Heart Disease, Hypertension Respiratory History: No Pertinent History Endocrine Medical History: Hypothyroidism Musculoskeletal History: No Pertinent History GI Medical History: GERD History: No Pertinent History Psycho-Social History: Depression, Other Male Reproductive Disorders: No Pertinent History Other Medical History: TBI from [facility] - Past Surgical History Past Surgical History: Yes (unknown/no history on transfer) Neuro Surgical History: No Pertinent History Cardiac: No Pertinent History, Pacemaker Respiratory: Tracheostomy Gastrointestinal: Appendectomy, Cholecystectomy, Hemorrhoidectomy Genitourinary: No Pertinent History Musculoskeletal: No Pertinent History Male Surgical History: No Pertinent History Other Surgical History: caregiver states she doesn't know what other surgeries h e's haD HAD JOCELYNN, APPY, AND HEMORROIDECTOMY - Social History Smoking Status: Unknown if ever smoked How long have you smoked: years Exposure to second hand smoke: No Alcohol Use: None Drug Use: none Patient Lives Alone: No Significant Family History: no pertinent family hx - Nursing Vital Signs Nursing Vital Signs: Initial Vital Signs Temperature 97.9 F 10/31/21 12:46 Blood Pressure 110/72 10/31/21 12:46 Pain Scale Pain Intensity 5 - Physical Exam General Appearance: no apparent distress, alert Eyes, Ears, Nose, Throat Exam: normal ENT inspection, moist mucous membranes Neck Exam: normal inspection, non-tender, supple, full range of motion Cardiovascular/Respiratory Exam: chest non-tender, normal breath sounds, regular rate/rhythm, heart sounds normal, no respiratory distress Abdominal Exam: non-tender Back Exam: normal inspection, normal range of motion, No CVA tenderness, No vertebral tenderness Shoulder Exam: normal inspection, non-tender, no evidence of injury, normal ROM Elbow/Forearm Exam: normal inspection, non-tender, no evidence of injury, normal ROM Wrist Exam: normal inspection, non-tender, no evidence of injury, normal ROM Hand Exam: normal inspection, non-tender, no evidence of injury, normal ROM Neuro/Tendon Exam: normal sensation, normal motor functions, normal tendon functions, responds to pain, no evidence tendon injury Mental Status Exam: alert, oriented x 3, cooperative Skin Exam: normal color, warm, dry SpO2 Interpretation: normal O2 Delivery: Room Air - Course Nursing assessment & vital signs reviewed: Yes Ordered Tests: Active Orders 24 hr Category Date Time Status SHOULDER Stat Exams 10/31/21 13:04 Completed SHOULDER Stat Exams 10/31/21 13:04 Completed - Progress Progress: unchanged, re-examined Progress Note: 10/31/21 14:18 Bilateral shoulder x-rays show no acute fracture or dislocations. Counseled pt/family regarding: diagnosis, need for follow-up, rad results - Departure Departure Disposition: Home Clinical Impression: Bilateral shoulder pain Condition: Stable Critical Care Time: No Referrals: JANNETTE RODRIGUEZ MD [Primary Care Provider] - Follow up/PCP as directed Additional Instructions: Use Tylenol and ibuprofen for pain control. Follow-up with primary care physician or [facility] orthopedic clinic for further evaluation and management.
--- NOTE | 2021-10-31 13:48 | XRAY ---
Indication: Pain. Comparison: None 3 view left shoulder obtained on stretcher demonstrates osteopenia, mild AC degenerative arthropathy, and partially visualized left dual-lead pacemaker with fixation wires. No other bony, articular, or soft tissue abnormalities.
--- NOTE | 2021-10-31 13:50 | XRAY ---
Indication: Pain. Comparison: None 3 view right shoulder obtained on stretcher demonstrates osteopenia, mild AC degenerative arthropathy, and partially visualized left cardiac pacemaker leads. No other bony, articular, or soft tissue abnormalities.
[2021-10-31 14:21] VITALS: BP 104/79; PULSE 78; O2SAT 98
== END 2021-10-31 14:25 | disposition home or self-care (01) ==
LOC: ED 12:39
DX: M25.511 Pain in right shoulder (principal); M25.512 Pain in left shoulder; Z87.820 Personal history of traumatic brain injury; I10 Essential (primary) hypertension; Z79.899 Other long term (current) drug therapy
CPT/HCPCS: 73030; 99284

== ENCOUNTER 2021-11-18 09:10 | Emergency (ER) | payer MEDICAID ==
[2021-11-18] MEDS ORDERED: Sodium Chloride 0.9% 1000 ML 1,000 ML IV STA (09:20)
[2021-11-18] MEDS ORDERED: Sodium Chloride 0.9% 1000 ML 1,000 ML ONE (09:30)
--- NOTE | 2021-11-18 10:09 | XRAY ---
Indication: Acute mental status change. Decreased loss of consciousness. Multiple contiguous axial images obtained through the head without contrast. Comparison: March 12, 2021. Stable age-appropriate global atrophy and mild periventricular generative micro-ischemia. Also grossly stable enlargement of the lateral/third ventricles as seen with noncommunicating hydrocephalus. No acute intracranial hemorrhage, abnormal extra-axial fluid collection, or mass effect. Fourth ventricle is midline. Bony calvarium intact. Visualized paranasal sinuses and mastoid air cells are clear. Impression: Continued nonacute senile brain with enlargement of the ventricles as detailed.
--- NOTE | 2021-11-18 10:13 | XRAY ---
Indication: Acute mental status change. Decreased loss of consciousness. Comparison: March 10, 2021. Portable chest is now underinflated again with chronic left hemidiaphragm elevation and left base subsegmental atelectasis/scarring. Heart not enlarged again with left pacemaker. Bony thorax intact again with mild osteopenia and degenerative changes. Impression: Nonacute underinflated chest with chronic features.
--- NOTE | 2021-11-18 11:17 | ERPHSYRPT ---
- History of Present Illness Time Seen by Provider: 11/18/21 09:15 Source: EMS, other (Caregiver from [facility]) Exam Limitations: clinical condition Patient Subjective Stated Complaint: No C/O by patient at this time. States, "what time do we eat, I'm hungry." Denies any pain, nausea, SOB. Triage Nursing Assessment: Patient brought into ED by ambulance. EMS report that patient came from a nursing home and a new employee though patient was not acting right, decreased LOC. Blood sugar a little over 200 in ambulance. EMS reports patient has been alert and oriented since they arrived on scene. Patient is alert and oriented here now. No SOB noted. Skin tone normal, warm, dry. Slight dry cough noted. Afebrile. Physician History: Patient is a 56-year-old male who has a longstanding TBI who apparently was somewhat difficult to get out of bed yesterday. They also say he has been acting "funny". He was brought in by EMS who found him alert oriented cooperative. Patient absolutely denies any discomfort shortness of breath headache chest pain abdominal pain he is hungry and wants to eat. Timing/Duration: today Severity: mild Associated Symptoms: denies symptoms Allergies/Adverse Reactions: No Known Drug Allergies Allergy (Verified 11/18/21 09:21) Home Medications: Fluoxetine HCl 10 mg [Prozac 10 mg] 10 mg PO DAILY 01/06/18 [History] Docusate Sodium 100 mg [Docusate Sodium 100 MG] 100 mg PO BID 01/20/18 [History] ARIPiprazole [Aripiprazole Odt] 1 tab PO DAILY 12/14/19 [History] Benztropine Mesylate 1 tab PO BID 12/14/19 [History] Levothyroxine Sodium 75 Mcg [Synthroid 75 Mcg] 1 tab PO DAILY 12/14/19 [History] Omeprazole 1 tab PO BID 12/14/19 [History] Oxcarbazepine 300 mg [Trileptal 300 MG Tablet] 300 mg PO BID 01/15/20 [History] Acetaminophen [Tylenol] 650 mg PO Q4HPRN PRN 01/30/21 [History] ondansetron HCL [Zofran] 4 mg PO Q4HPRN PRN 01/30/21 [History] Chlorpheniramine Maleate [Chlor-Trimeton] 4 mg PO Q8H PRN PRN 03/09/21 [History] Guaifenesin/Dextromethorphan [Siltussin Dm Mendes 100-10Mg/5 ml] 10 ml PO Q6H PRN PRN 03/09/21 [History] Loperamide HCl [Imodium A-D] 2 mg PO Q3H/PRN PRN 03/09/21 [History] Mag Hydrox/Aluminum Hyd/Simeth [Gnp Antacid Anti-Gas Liquid] 30 ml PO AC PRN 03/09/21 [History] Magnesium Hydroxide 30 ml [Milk of Magnesia 30 ml] 30 ml PO DAILY PRN PRN 03/09/21 [History] Miconazole Nitrate [Micatin] 15 gm TP DAILY PRN PRN 03/09/21 [History] Hx Tetanus, Diphtheria Vaccination/Date Given: Yes Hx Influenza Vaccination/Date Given: No Hx Pneumococcal Vaccination/Date Given: No Immunizations Up to Date: Yes Travel Risk - International Travel Have you traveled outside of the country in past 3 weeks: No - Coronavirus Screening Are you exhibiting any of the following symptoms?: No Close contact with a COVID-19 positive Pt in past 14-21 Days: No - Vaccine Status Have you recieved a Covid-19 vaccination: (UNKNOWN) - Vaccination Dates Comment: UNKNOWN - Review of Systems All Other Systems: Unable due to condition - Past Medical History Pertinent Past Medical History: Yes Neurological History: Dementia, Seizures ENT History: No Pertinent History Cardiac History: Congenital Heart Disease, Hypertension Respiratory History: No Pertinent History Endocrine Medical History: Hypothyroidism Musculoskeletal History: No Pertinent History GI Medical History: GERD History: No Pertinent History Psycho-Social History: Depression, Other Male Reproductive Disorders: No Pertinent History Other Medical History: TBI from [facility], tremors, impulse control - Past Surgical History Past Surgical History: Yes Neuro Surgical History: No Pertinent History Cardiac: Pacemaker Respiratory: Tracheostomy Gastrointestinal: Appendectomy, Cholecystectomy, Hemorrhoidectomy Genitourinary: No Pertinent History Musculoskeletal: No Pertinent History Male Surgical History: No Pertinent History Other Surgical History: HEMORROIDECTOMY - Social History Smoking Status: Former smoker How long have you smoked: years Exposure to second hand smoke: No Alcohol Use: None Drug Use: none Patient Lives Alone: No (Long Term) Significant Family History: no pertinent family hx - Nursing Vital Signs Nursing Vital Signs: Initial Vital Signs Temperature 96.8 F 11/18/21 09:12 Pulse Rate 71 11/18/21 09:12 Respiratory Rate 16 11/18/21 09:12 Blood Pressure 131/83 11/18/21 09:12 O2 Sat by Pulse Oximetry 95 11/18/21 09:12 Pain Scale Pain Intensity 0 - Physical Exam General Appearance: no apparent distress Eye Exam: PERRL/EOMI, eyes nml inspection Ears, Nose, Throat Exam: normal ENT inspection, TMs normal, pharynx normal, moist mucous membranes Neck Exam: normal inspection, non-tender, supple, full range of motion Respiratory Exam: normal breath sounds, lungs clear, No respiratory distress Cardiovascular Exam: regular rate/rhythm, normal heart sounds, normal peripheral pulses Gastrointestinal/Abdomen Exam: soft, normal bowel sounds, No tenderness, No mass Back Exam: normal inspection, normal range of motion, No CVA tenderness, No vertebral tenderness Extremity Exam: normal inspection, normal range of motion, pelvis stable Neurologic Exam: alert, cooperative, nml station & gait Skin Exam: normal color, warm, dry SpO2 Interpretation: normal SpO2: 95 O2 Delivery: Room Air - Course Nursing assessment & vital signs reviewed: Yes EKG Interpreted by Me: RATE (78), Sinus Rhythm, NORMAL AXIS, NORMAL INTERVALS, NORMAL QRS, NORMAL ST-T - Radiology Exams Chest X-ray Interpretation: Negative (No acute changes noted) - CT Exams Head CT Interpretation: Negative (No acute changes) Ordered Tests: Active Orders 24 hr Category Date Time Status EKG-ER Only STAT Care 11/18/21 09:20 Active IV Insertion STAT Care 11/18/21 09:20 Active CHEST 1 VIEW (PORTABLE) Stat Exams 11/18/21 09:21 Completed HEAD WITHOUT CONTRAST [CT] Stat Exams 11/18/21 09:23 Completed AMYLASE Stat Lab 11/18/21 11:00 Completed CBC W DIFF Stat Lab 11/18/21 11:00 Completed CMP Stat Lab 11/18/21 11:00 Completed LIPASE Stat Lab 11/18/21 11:00 Completed Lactic Acid Stat Lab 11/18/21 09:20 Completed PROTIME WITH INR Stat Lab 11/18/21 11:00 Completed TROPONIN Q3H Lab 11/18/21 11:00 Completed TROPONIN Q3H Lab 11/18/21 12:30 Ordered TROPONIN Q3H Lab 11/18/21 15:30 Ordered TROPONIN Q3H Lab 11/18/21 18:30 Ordered TROPONIN Q3H Lab 11/18/21 21:30 Ordered UA W/RFX CULTURE Stat Lab 11/18/21 Ordered Medication Summary Discontinued Medications Generic Name Dose Route Start Last Admin Trade Name Ellis PRN Reason Stop Dose Admin Sodium Chloride 1,000 mls @ 999 mls/hr 11/18/21 09:20 11/18/21 10:38 Sodium Chloride 0.9% 1000 Ml IV 11/18/21 10:20 Infused .Q1H1M STA Infusion Sodium Chloride Confirm 11/18/21 09:30 Sodium Chloride 0.9% 1000 Ml Administered 11/18/21 09:31 Dose 1,000 mls @ ud .ROUTE .STK-MED ONE Lab/Rad Data: Laboratory Result Diagrams 11/18/21 11:00 11/18/21 11:00 Laboratory Results 11/18/21 11/18/21 11/18/21 Range/Units 11:00 11:00 11:00 WBC (4.0-10.5) x10^3/uL RBC (4.1-5.6) x10^6/uL Hgb (12.5-18.0) g/dL Hct (42-50) % MCV (78-100) fL MCH (26-32) pg MCHC (32-36) g/dL RDW (11.5-14.0) % Plt Count (150-450) x10^3/uL MPV (7.5-11.0) fL Gran % (36.0-66.0) % Immature Gran % (Auto) (0.00-0.4) % Nucleat RBC Rel Count (0.00-0.1) % Eos # (Auto) (0-0.5) x10^3/uL Immature Gran # (Auto) (0.00-0.03) x10^3u/L Absolute Lymphs (auto) (1.0-4.6) x10^3/uL Absolute Monos (auto) (0.0-1.3) x10^3/uL Absolute Nucleated RBC (0.00-0.01) x10^3u/L Lymphocytes % (24.0-44.0) % Monocytes % (0.0-12.0) % Eosinophils % (0.00-5.0) % Basophils % (0.0-0.4) % Absolute Granulocytes (1.4-6.9) x10^3/uL Basophils # (0-0.4) x10^3/uL PT 11.9 (9.4-12.5) SECONDS INR 1.14 (0.8-3.0) Sodium 140 (137-145) mmol/L Potassium 4.2 (3.5-5.1) mmol/L Chloride 103 (98-107) mmol/L Carbon Dioxide 33 H (22-30) mmol/L Anion Gap 8.1 (5-15) MEQ/L BUN 18 (9-20) mg/dL Creatinine 0.75 (0.66-1.25) mg/dL Estimated GFR > 60.0 ML/MIN Glucose 74 (74-106) mg/dL Lactic Acid (0.4-2.0) Calcium 8.3 L (8.4-10.2) mg/dL Total Bilirubin 0.90 (0.2-1.3) mg/dL AST 174 H (17-59) U/L ALT 136 H (0-50) U/L Alkaline Phosphatase 146 H (38-126) U/L Troponin I < 0.012 (0.000-0.034) ng/mL Serum Total Protein 8.2 (6.3-8.2) g/dL Albumin 3.3 L (3.5-5.0) g/dL Amylase 88 (30-110) U/L Lipase 103 (23-300) U/L 11/18/21 11/18/21 Range/Units 11:00 09:20 WBC 11.4 H (4.0-10.5) x10^3/uL RBC 3.91 L (4.1-5.6) x10^6/uL Hgb 12.9 (12.5-18.0) g/dL Hct 39.3 L (42-50) % MCV 100.5 H (78-100) fL MCH 33.0 H (26-32) pg MCHC 32.8 (32-36) g/dL RDW 15.7 H (11.5-14.0) % Plt Count 369 (150-450) x10^3/uL MPV 10.5 (7.5-11.0) fL Gran % 58.6 (36.0-66.0) % Immature Gran % (Auto) 0.3 (0.00-0.4) % Nucleat RBC Rel Count 0.0 (0.00-0.1) % Eos # (Auto) 0.19 (0-0.5) x10^3/uL Immature Gran # (Auto) 0.03 (0.00-0.03) x10^3u/L Absolute Lymphs (auto) 2.95 (1.0-4.6) x10^3/uL Absolute Monos (auto) 1.49 H (0.0-1.3) x10^3/uL Absolute Nucleated RBC 0.00 (0.00-0.01) x10^3u/L Lymphocytes % 25.9 (24.0-44.0) % Monocytes % 13.1 H (0.0-12.0) % Eosinophils % 1.7 (0.00-5.0) % Basophils % 0.4 (0.0-0.4) % Absolute Granulocytes 6.70 (1.4-6.9) x10^3/uL Basophils # 0.05 (0-0.4) x10^3/uL PT (9.4-12.5) SECONDS INR (0.8-3.0) Sodium (137-145) mmol/L Potassium (3.5-5.1) mmol/L Chloride (98-107) mmol/L Carbon Dioxide (22-30) mmol/L Anion Gap (5-15) MEQ/L BUN (9-20) mg/dL Creatinine (0.66-1.25) mg/dL Estimated GFR ML/MIN Glucose (74-106) mg/dL Lactic Acid 1.3 (0.4-2.0) Calcium (8.4-10.2) mg/dL Total Bilirubin (0.2-1.3) mg/dL AST (17-59) U/L ALT (0-50) U/L Alkaline Phosphatase (38-126) U/L Troponin I (0.000-0.034) ng/mL Serum Total Protein (6.3-8.2) g/dL Albumin (3.5-5.0) g/dL Amylase (30-110) U/L Lipase (23-300) U/L - Progress Progress: unchanged Progress Note: 11/18/21 12:12 Patient's only findings were some slight elevation of liver functions we have o rdered a hepatitis profile and he will follow-up with Dr. Mack tomorrow. It should be noted that he was refusing any type of swabs so he did not get his COVID RSV or flu. - Departure Departure Disposition: Extended Care Facility Clinical Impression: Elevated liver function tests Condition: Stable Critical Care Time: No Instructions: Liver Function Test
[2021-11-18 11:20] LABS: Basophil (Absolute #) 0.05 x10^3/uL (0-0.4); Eosinophil % 1.7 % (0.00-5.0); Eosinophil (Absolute #) 0.19 x10^3/uL (0-0.5); Hematocrit 39.3 % (42-50); Hemoglobin 12.9 g/dL (12.5-18.0); Lymphocyte (Absolute #) 2.95 x10^3/uL (1.0-4.6); Lymphocytes % 25.9 % (24.0-44.0); Mean Cell Volume 100.5 fL (78-100); Mean Corpuscular Hgb Concent. 32.8 g/dL (32-36); Mean Platelet Volume 10.5 fL (7.5-11.0); Monocyte (Absolute #) 1.49 x10^3/uL (0.0-1.3); Monocytes % 13.1 % (0.0-12.0); Neutrophil % 58.6 % (36.0-66.0); Platelet Count 369 x10^3/uL (150-450); Red Blood Count 3.91 x10^6/uL (4.1-5.6); Red Cell Distribution Width 15.7 % (11.5-14.0); White Blood Count 11.4 x10^3/uL (4.0-10.5)
[2021-11-18 11:32] LABS: ALBUMIN 3.3 g/dL (3.5-5.0); ALKALINE PHOSPHATASE 146 U/L (38-126); AMYLASE 88 U/L (30-110); ANION GAP 8.1 MEQ/L (5-15); BLOOD UREA NITROGEN 18 mg/dL (9-20); CHLORIDE 103 mmol/L (98-107); Calcium 8.3 mg/dL (8.4-10.2); Carbon Dioxide 33 mmol/L (22-30); Creatinine 1 0.75 mg/dL (0.66-1.25); EST GLOMERULAR FILTRATION RATE > 60.0 ML/MIN; Glucose 74 mg/dL (74-106); LIPASE 103 U/L (23-300); Potassium 4.2 mmol/L (3.5-5.1); SGOT/AST 174 U/L (17-59); SGPT/ALT 136 U/L (0-50); SODIUM 140 mmol/L (137-145); Total Protein 8.2 g/dL (6.3-8.2)
[2021-11-18 11:38] LABS: INR 1.14 (0.8-3.0); PROTIME 11.9 SECONDS (9.4-12.5)
[2021-11-18 13:18] VITALS: BP 138/84; PULSE 88; O2SAT 98
== END 2021-11-18 13:25 | disposition home or self-care (01) ==
LOC: ED 09:10
DX: R79.89 Other specified abnormal findings of blood chemistry (principal); Z87.820 Personal history of traumatic brain injury; I10 Essential (primary) hypertension; Z79.899 Other long term (current) drug therapy
CPT/HCPCS: 36000; 36415; 70450; 71045; 80053; 80074; 82150; 83605; 83690; 84484; 85025; 85610; 93005; 99284